=== PATIENT | female | born 1995 | race Caucasian/White ===

== ENCOUNTER → 2017-10-28 | Outpatient (CLI) | payer BC, MEDICAID ==
[~2017-10-28] MED LIST: BIRTH CONTROL; CEFU250T11 PO; HYDR-3454 PO; HYDR1TAB8 OP; NITR-65 PO; ONDN4T PO; [UNRECOGNIZED DRUG - CODE]
--- NOTE | 2017-10-28 18:17 | Diagnostic Imaging Report ---
INDICATION: Breast lump. COMPARISON: None. FINDINGS: Focused ultrasound examination of the left breast demonstrates normal echogenicity throughout. There is no mass, cyst, or inflammation. IMPRESSION: Negative left breast ultrasound. ACR BI-RADS Category 1: Negative. Dictated by: Dictated on workstation # [id number]
== END ==
LOC: RAD 12:48
PROVIDERS: ATTEND Nurse Practitioner Family
DX: N63.20 Unspecified lump in the left breast, unspecified quadrant (principal)
CPT/HCPCS: 76641

== ENCOUNTER → 2018-01-14 | Outpatient (CLI) | payer BC, MEDICAID ==
--- NOTE | 2018-01-14 15:34 | Diagnostic Imaging Report ---
INDICATION: Right pelvic pain. TECHNIQUE: Transabdominal and transvaginal pelvic sonography was performed. FINDINGS: The uterus measures 7.5 x 3.3 x 2.9 cm. Endometrium is 3 mm in thickness. No uterine mass is detected. The right ovary measures 3.5 x 3.1 x 2.6 cm, and the left ovary measures 2.8 x 2.6 x 3.6 cm. There is a 13 mm follicle involving the right ovary. No free fluid is identified. There is blood flow to both ovaries. IMPRESSION: Unremarkable transabdominal and transvaginal pelvic ultrasound. Dictated by: Dictated on workstation # [id number]
== END ==
LOC: RAD 14:14
PROVIDERS: ATTEND Nurse Practitioner Family
DX: N93.9 Abnormal uterine and vaginal bleeding, unspecified (principal); R10.2 Pelvic and perineal pain
CPT/HCPCS: 76830; 76856

== ENCOUNTER → 2018-03-19 | Outpatient (CLI) | payer BC, MEDICAID ==
[~2018-03-19] MED LIST changes: +GADOBUTROL 7.5 MMOL/7.5 ML (GADAVIST) VIAL IV ONE
--- NOTE | 2018-03-19 11:45 | Diagnostic Imaging Report ---
PROCEDURE: MR imaging cervical spine with and without contrast. TECHNIQUE: Multiplanar and multisequence MRI of the cervical spine was performed with and without contrast. INDICATION: Bilateral hand pain. FINDINGS: There are no prior studies available for comparison. The T2 sagittal images show the vertebral body heights and alignment to be within normal limits. The intervertebral disc spaces are well maintained. The thecal sac is generous. There is no evidence for spinal stenosis or nerve root encroachment at any level. There is no abnormal signal arising from the osseous structures or the cord to suggest an acute abnormality. There is no abnormal enhancement on the post contrast series to indicate a cord lesion or demyelinating disease. There is no paraspinal mass visualized. The expected carotid and vertebral flow voids are evident bilaterally. The cerebellar tonsils are normal in position. IMPRESSION: 1. There is no evidence for spinal stenosis or nerve root encroachment at any level. 2. There is no sign of an acute bony abnormality. 3. There is no abnormal signal arising from the cord to suggest an acute abnormality or demyelinating disease. Dictated by: Dictated on workstation # [id number]
--- NOTE | 2018-03-19 12:09 | Diagnostic Imaging Report ---
PROCEDURE: MR imaging of the brain with and without contrast. INDICATION: Constant right-sided headache. Bilateral hand pain with loss of sensation to the hands and feet for one and half years. TECHNIQUE: Multiplanar, multisequence MR imaging of the brain was performed with and without contrast. CORRELATION STUDY: None. FINDINGS: There is some motion artifact. The ventricles and sulci appear age appropriate. Normal masters-white signal differentiation. No significant white matter signal abnormalities. No edema. No restricted areas of diffusion. No significant gradient echo signal abnormalities. Craniocervical junction as well as midline structures appear unremarkable. Normal expected intracranial flow voids. Post contrast imaging demonstrates no abnormal areas of intracranial enhancement. IMPRESSION: Unremarkable pre and post contrast MRI examination of the brain. Dictated by: Dictated on workstation # [id number]
== END ==
LOC: RAD 07:46
PROVIDERS: ATTEND Psychiatry & Neurology Neurology
DX: M79.641 Pain in right hand (principal); M79.642 Pain in left hand; R20.2 Paresthesia of skin; R51 Headache
CPT/HCPCS: 70553; 72156

== ENCOUNTER 2018-08-24 07:03 | Emergency (ER) | payer BC, MEDICAID ==
[~2018-08-24] VITALS: Ht 160 cm; Wt 48.5 kg
[~2018-08-24 07:03] MED LIST changes: -GADOBUTROL 7.5 MMOL/7.5 ML (GADAVIST) VIAL IV ONE
--- OUTSIDE RECORDS SUMMARY | 2018-08-24 07:28 | XMS REPORT ---
Author Author MAMIE COPELAND Organization [facility] Address [address] [place] [address] Care Team Providers Care Welt Sewer Name Role Phone MAMIE COPELAND Unavailable PROBLEMS Type Condition ICD9-CM Code HWB23-KX Code Onset Dates Condition Status SNOMED Code Problem Vaginal bleeding N93.9 Active 744578993 Problem Atypical squamous cells of undetermined significance on cytologic smear of vagina (ASC-US) R87.620 Active 254435731 Problem Vaginal high risk human papillomavirus (HPV) DNA test positive R87.811 Active 090665097 Problem Paresthesia of both hands R20.2 Active 293251913 ALLERGIES Substance Reaction Event Type Date Status Aspirin rash Drug Allergy January, Active ENCOUNTERS Encounter Location Date Diagnosis [facility] [address] [place] [address] [id number] January, Vaginal bleeding N93.9 and Pruritic rash L28.[address] [place] [address] [id number] January, Rash R21 ; Acute urticaria L50.8 and Allergic reaction, urticaria L50.[address] [place] [address] [id number] January, Vaginal bleeding N93.9 ; Epigastric abdominal pain R10.13 ; Heartburn R12 and Pelvic pain R10.2 [place] [id number] [place] [address] [id number] Dec, Pain of left hand M79.642 ; Pain in right hand M79.641 and Bilateral hand numbness R20.[address] [place] [address] [id number] Dec, Vaginal bleeding N93.9 and Pelvic pain R10.2 [place] [id number] [place] [address] [id number] 15 Nov, 2017 Status post colposcopy Z98.890 ; Vaginal high risk human papillomavirus ( HPV) DNA test positive R87.811 and Atypical squamous cells of undetermined significance on cytologic smear of vagina (ASC-US) R87.620 [address] [place] [address] [id number] 07 Nov, 2017 Vaginal cat B37.[address] [id number] 07 Oct, 2017 Well woman exam with routine gynecological exam Z01.419 ; Lump of left breast N63.20 ; High risk sexual behavior Z72.51 ; Vaginal discharge N89.8 and Pigmented skin lesion L81.9 [place] [address] [place] [address] [id number] 30 Sep, 2017 Lump of left breast N63.20 [place] [id number] [place] [address] [id number] 04 Sep, 2017 Fever, unspecified R50.9 and Influenza J11.[address] [id number] [id number] 13 Aug, 2017 Dental examination Z01.[address] [place] [address] [id number] 29 Jul, 2017 Epigastric abdominal pain R10.13 and Poor appetite R63.0 [facility] [id number] [phone] Jul, [place] [id number] [place] [address] [id number] Apr, BCP ( control pills) initiation Z30.011 and control counseling Z30.09 [place] [id number] [place] [address] [id number] Nov, Depo-Provera contraceptive status Z30.40 and Encounter for Depo-Provera contraception Z30.[address] [place] [address] [id number] 17 Nov, 2016 Fever, unspecified R50.9 and Influenza J11.[address] [place] [address] [id number] Sep, Routine gynecological examination Z01.419 ; Screening breast examination Z12.39 and High risk sexual behavior Z72.51 [place] [id number] [place] [address] [id number] Sep, High risk sexual behavior Z72.51 and Trichomonas contact Z20.[address] [id number] Aug, Encounter for Depo-Provera contraception Z30.[address] [id number] Jun, Sprain of left thumb, subsequent encounter S63.602D [place] [address] [place] [address] [id number] May, Encounter for Depo-Provera contraception Z30.42 [place] [address] [place] [address] [id number] Mar, Dysthymia F34.1 [place] [address] [place] [address] [id number] Mar, Visit for wound check Z51.89 and Dysthymia F34.1 [place] [address] [place] [address] [id number] Mar, Encounter for Depo-Provera contraception Z30.42 [place] [id number] [place] [address] [id number] Feb, Neck mass R22.1 and Paresthesia of both hands R20.2 [facility] [address] [place] [phone]- [phone] January, Dental examination Z01.20 [place] [id number] [place] [address] [id number] January, [address] [id number] January, Swollen lymph nodes R59.9 [place] [id number] [place] [address] [id number] Dec, Swollen lymph nodes R59.9 [facility] [id number] [place] [id number] Dec, Swollen lymph nodes R59.9 [facility] [id number] [place] [address] [id number] Dec, Encounter for Depo-Provera contraception Z30.42 [facility] [id number] [place] [address] [id number] Nov, Swollen lymph nodes R59.9 and Left wrist pain M25.532 [facility] [id number] [place] [address] [id number] Sep, Encounter for initial prescription of injectable contraceptive Z30.013 and Ringworm B35.9 [facility] [id number] [place] [address] 20914- 3234 Dec, [facility] [id number] [place] [address] 58620- 4190 Dec, [facility] [id number] [place] [address] [phone]- [phone] Feb, [facility] [id number] [place] [address] [phone]- [phone] Sep, [facility] [id number] [place] [address] 49945- [phone] Sep, [facility] [id number] [place] [address] 48087- [phone] Jun, [facility] [id number] [place] [address] [phone] Jun, [facility] [id number] [place] [address] [phone]- [phone] Apr, [facility] [id number] [place] [address] [phone]- 1293 Aug, [facility] [id number] [place] [address] 67295- [phone] Aug, [facility] [address] [place] [address] Apr, IMMUNIZATIONS No Known Immunizations SOCIAL HISTORY Never Assessed REASON FOR VISIT here to follow up on ultrasound, still having pain. ezn Howard PLAN OF CARE Activity Details Follow Up [address] Sprague for pelvic pain and vaginal bleeding Reason: VITAL SIGNS Height 64 in 2018-02-01 Weight 114 lbs 2018-02-01 Temperature 98.2 degrees Fahrenheit 2018-02-01 Heart Rate 78 bpm 2018-02-01 Respiratory Rate 16 2018-02-01 BMI 19.57 kg/m2 2018-02-01 Blood pressure systolic 100 mmHg 2018-02-01 Blood pressure diastolic 64 mmHg 2018-02-01 MEDICATIONS Medication Instructions Dosage Frequency Start Date End Date Duration Status Omeprazole 20 mg Orally Once a day 1 capsule 24h January, 30 day(s ) Active RESULTS Name Result Date Reference Range H PYLORI (IN HOUSE) 2018-02-01 H. PYLORI neg Control + Lot # [id number] Exp date 07/07 TEST, URINE (IN HOUSE) 2018-02-01 RESULTS negative Lot # [id number] Control + Exp date 05/08 UA LONG DIP (IN HOUSE) 2018-02-01 Lot # [id number] Exp date 01/06 Clarity clear Color yellow Odor no GLU neg NAA neg KET neg SG 1.025 BLO trace pH 7.0 Protein neg URO 0.2 NIT neg YASH neg Lot # Exp date PROCEDURES Procedure Date Ordered Result Body Site IMMUNOASSAY,INFECTIOUS AGENT February 01, 2018 URINALYSIS, AUTO, W/O SCOPE February 01, 2018 URINE TEST February 01, 2018 INSTRUCTIONS MEDICATIONS ADMINISTERED No Known Medications MEDICAL (GENERAL) HISTORY Type Description Date Medical History asthma Medical History anemia Medical History arthritis Medical History back trouble Medical History 01/14/18 Pelvic US, no mass is detected. There is blood flow to both ovaries. No free fluid. Medical History Neck mass Medical History Dysthymia Surgical History appendectomy 2009 Surgical History kidney stones removed [address] Brown removed lyph node on right side of neck 2016 Hospitalization History surgeries, childbirth
--- OUTSIDE RECORDS SUMMARY | 2018-08-24 07:29 | XMS REPORT ---
Author Author MAMIE COPELAND Organization [facility] Address [address] [place] [address] Care Team Providers Care Certified Professional Coder Name Role Phone MAMIE COPELAND Unavailable PROBLEMS Type Condition ICD9-CM Code SRM07-HO Code Onset Dates Condition Status SNOMED Code Problem Vaginal bleeding N93.9 Active 679194308 Problem Atypical squamous cells of undetermined significance on cytologic smear of vagina (ASC-US) R87.620 Active 602844114 Problem Vaginal high risk human papillomavirus (HPV) DNA test positive R87.811 Active 319886730 Problem Paresthesia of both hands R20.2 Active 287327308 ALLERGIES Substance Reaction Event Type Date Status Aspirin rash Drug Allergy Dec, Active ENCOUNTERS Encounter Location Date Diagnosis [address] [place] [address] [id number] January, Vaginal bleeding N93.9 and Pruritic rash L28.2 [place] [id number] [place] [address] [id number] January, Rash R21 ; Acute urticaria L50.8 and Allergic reaction, urticaria L50.0 [place] [id number] [place] [address] [id number] January, Vaginal bleeding N93.9 ; Epigastric abdominal pain R10.13 ; Heartburn R12 and Pelvic pain R10.2 [address] [place] [address] [id number] Dec, Pain of left hand M79.642 ; Pain in right hand M79.641 and Bilateral hand numbness R20.0 [address] [place] [address] [id number] Dec, Vaginal bleeding N93.9 and Pelvic pain R10.2 [place] [id number] [place] [address] [id number] 15 Nov, 2017 Status post colposcopy Z98.890 ; Vaginal high risk human papillomavirus ( HPV) DNA test positive R87.811 and Atypical squamous cells of undetermined significance on cytologic smear of vagina (ASC-US) R87.620 [address] [place] [address] [id number] 07 Nov, 2017 Vaginal cat B37.[address] [id number] 07 Oct, 2017 Well woman exam with routine gynecological exam Z01.419 ; Lump of left breast N63.20 ; High risk sexual behavior Z72.51 ; Vaginal discharge N89.8 and Pigmented skin lesion L81.9 [place] [id number] [place] [address] [id number] 30 Sep, 2017 Lump of left breast N63.20 [place] [id number] [place] [address] [id number] 04 Sep, 2017 Fever, unspecified R50.9 and Influenza J11.[address] [id number] [id number] 13 Aug, 2017 Dental examination Z01.[address] [place] [address] [id number] 29 Jul, 2017 Epigastric abdominal pain R10.13 and Poor appetite R63.0 [facility] [id number] [phone] Jul, [place] [id number] [place] [address] [id number] Apr, BCP ( control pills) initiation Z30.011 and control counseling Z30.[address] [id number] Nov, Depo-Provera contraceptive status Z30.40 and Encounter for Depo-Provera contraception Z30.42 [address] [place] [address] [id number] 17 Nov, 2016 Fever, unspecified R50.9 and Influenza J11.1 [facility] [id number] [place] [address] [id number] Sep, Routine gynecological examination Z01.419 ; Screening breast examination Z12.39 and High risk sexual behavior Z72.51 [place] [address] [id number] [place] [address] [id number] 18 Sep, 2016 High risk sexual behavior Z72.51 and Trichomonas contact Z20.[address] [id number] Aug, Encounter for Depo-Provera contraception Z30.[address] [id number] Jun, Sprain of left thumb, subsequent encounter S63.602D [address] [id number] May, Encounter for Depo-Provera contraception Z30.[address] [id number] Mar, Dysthymia F34.[address] [id number] Mar, Visit for wound check Z51.89 and Dysthymia F34.1 [place] [id number] [place] [address] [id number] Mar, Encounter for Depo-Provera contraception Z30.42 [place] [id number] [place] [address] [id number] Feb, Neck mass R22.1 and Paresthesia of both hands R20.2 [facility] [id number] [place] [address] [phone]- [phone] January, Dental examination Z01.20 [place] [id number] [place] [address] [id number] January, [address] [id number] January, Swollen lymph nodes R59.9 [place] [id number] [place] [address] [id number] Dec, Swollen lymph nodes R59.9 [facility] [id number] [place] [id number] Dec, Swollen lymph nodes R59.9 [facility] [address] [place] [address] [id number] Dec, Encounter for Depo-Provera contraception Z30.42 [address] [place] [address] [id number] Nov, Swollen lymph nodes R59.9 and Left wrist pain M25.532 [facility] [id number] [place] [address] [id number] Sep, Encounter for initial prescription of injectable contraceptive Z30.013 and Ringworm B35.9 [facility] [id number] [place] [address] 36375- [phone] Dec, [facility] [address] [address]- [phone] Dec, [facility] [id number] [place] [address] 58454- 9664 Feb, [facility] [id number] [place] [address] [phone]- [phone] Sep, [facility] [id number] [place] [address] 95841- [phone] Sep, [facility] [id number] [place] [address] 69047- [phone] Jun, [facility] [id number] [place] [address] 99515- 1174 Jun, [facility] [id number] [place] [address] [phone]- [phone] Apr, [facility] [address] [phone]- [phone] Aug, [facility] [id number] [place] [address] [phone]- [phone] Aug, [facility] [address] [place] [address] 13 Apr, 2009 IMMUNIZATIONS No Known Immunizations SOCIAL HISTORY Never Assessed REASON FOR VISIT Had [place] bx done 12/02 continues to have vaginal bleeding. Paco QUIGLEY PLAN OF CARE Activity Details Follow Up 1 Week Reason:vaginal bleeding and hand numbness VITAL SIGNS Height 64 in 2017-12-29 Weight 114.6 lbs 2017-12-29 Temperature 97.8 degrees Fahrenheit 2017-12-29 Heart Rate 90 bpm 2017-12-29 Respiratory Rate 16 2017-12-29 BMI 19.67 kg/m2 2017-12-29 Blood pressure systolic 118 mmHg 2017-12-29 Blood pressure diastolic 74 mmHg 2017-12-29 MEDICATIONS No Known Medications RESULTS No Results PROCEDURES Procedure Date Ordered Result Body Site ROUTINE VENIPUNCTURE 2017-12-29 N/A URINALYSIS, AUTO, W/O SCOPE December 29, 2017 N.GONORRHOEAE, DNA, AMP PROB December 29, 2017 CHYLMD TRACH, DNA, AMP PROBE December 29, 2017 CULTURE, BACTERIA, OTHER December 29, 2017 URINE TEST December 29, 2017 URINE CULTURE/COLONY COUNT December 29, 2017 COMPREHEN METABOLIC PANEL December 29, 2017 MANUAL CELL COUNT, EACH December 29, 2017 INSTRUCTIONS MEDICATIONS ADMINISTERED No Known Medications MEDICAL [...] lyph node on right side of neck 2015 Hospitalization History surgeries, childbirth
--- OUTSIDE RECORDS SUMMARY | 2018-08-24 07:29 | XMS REPORT ---
Author Author MAMIE COPELAND Organization [facility] Address [address] [place] [address] Care Team Providers Care Plain Clothes Police Officer Name Role Phone MAMIE COPELAND Unavailable PROBLEMS Type Condition ICD9-CM Code [id number] Code Onset Dates Condition Status SNOMED Code Problem Vaginal bleeding N93.9 Active 475484988 Problem Atypical squamous cells of undetermined significance on cytologic smear of vagina (ASC-US) R87.620 Active 426422594 Problem Vaginal high risk human papillomavirus (HPV) DNA test positive R87.811 Active 490400291 Problem Paresthesia of both hands R20.2 Active 729362860 ALLERGIES Substance Reaction Event Type Date Status Aspirin rash Drug Allergy January, Active ENCOUNTERS Encounter Location Date Diagnosis [facility] [address] [place] [address] [id number] January, Vaginal bleeding N93.9 and Pruritic rash L28.2 [place] [id number] [place] [address] [id number] January, Rash R21 ; Acute urticaria L50.8 and Allergic reaction, urticaria L50.0 [address] [place] [address] [id number] January, Vaginal bleeding N93.9 ; Epigastric abdominal pain R10.13 ; Heartburn R12 and Pelvic pain R10.2 [place] [id number] [place] [address] [id number] Dec, Pain of left hand M79.642 ; Pain in right hand M79.641 and Bilateral hand numbness R20.0 [address] [place] [address] [id number] Dec, Vaginal bleeding N93.9 and Pelvic pain R10.2 [place] [id number] [place] [address] [id number] 15 Nov, 2017 Status post colposcopy Z98.890 ; Vaginal high risk human papillomavirus ( HPV) DNA test positive R87.811 and Atypical squamous cells of undetermined significance on cytologic smear of vagina (ASC-US) R87.620 [address] [place] [address] [id number] 07 Nov, 2017 Vaginal cat B37.[address] [id number] 07 Oct, 2017 Well woman exam with routine gynecological exam Z01.419 ; Lump of left breast N63.20 ; High risk sexual behavior Z72.51 ; Vaginal discharge N89.8 and Pigmented skin lesion L81.9 [place] [id number] [place] [address] [id number] 30 Sep, 2017 Lump of left breast N63.20 [place] [id number] [place] [address] [id number] 04 Sep, 2017 Fever, unspecified R50.9 and Influenza J11.[address] [id number] [id number] 13 Aug, 2017 Dental examination Z01.20 [address] [place] [address] [id number] 29 Jul, 2017 Epigastric abdominal pain R10.13 and Poor appetite R63.0 [facility] [address] [id number] [phone] Jul, [place] [id number] [place] [address] [id number] Apr, BCP ( control pills) initiation Z30.011 and control counseling Z30.09 [place] [id number] [place] [address] [id number] Nov, Depo-Provera contraceptive status Z30.40 and Encounter for Depo-Provera contraception Z30.42 [address] [place] [address] [id number] 17 Nov, 2016 Fever, unspecified R50.9 and Influenza J11.1 [address] [place] [address] [id number] Sep, Routine gynecological examination Z01.419 ; Screening breast examination Z12.39 and High risk sexual behavior Z72.51 [place] [id number] [place] [address] [id number] Sep, High risk sexual behavior Z72.51 and Trichomonas contact Z20.[address] [id number] Aug, Encounter for Depo-Provera contraception Z30.[address] [id number] Jun, Sprain of left thumb, subsequent encounter S63.602D [place] [id number] [place] [address] [id number] May, Encounter for Depo-Provera contraception Z30.42 [place] [id number] [place] [address] [id number] Mar, Dysthymia F34.1 [place] [id number] [place] [address] [id number] Mar, Visit for wound check Z51.89 and Dysthymia F34.1 [place] [id number] [place] [address] [id number] Mar, Encounter for Depo-Provera contraception Z30.42 [place] [id number] [place] [address] [id number] Feb, Neck mass R22.1 and Paresthesia of both hands R20.2 [facility] [address] [place] [address] [phone]- [phone] January, Dental examination Z01.20 [place] [id number] [place] [address] [id number] January, [address] [id number] January, Swollen lymph nodes R59.9 [place] [id number] [place] [address] [id number] Dec, Swollen lymph nodes R59.9 [facility] [id number] [id number] Dec, Swollen lymph nodes R59.9 [facility] [id number] [place] [address] [id number] Dec, Encounter for Depo-Provera contraception Z30.42 [facility] [id number] [place] [address] [id number] Nov, Swollen lymph nodes R59.9 and Left wrist pain M25.532 [facility] [id number] [place] [address] [id number] Sep, Encounter for initial prescription of injectable contraceptive Z30.013 and Ringworm B35.9 [facility] [id number] [place] [address] 62718- [phone] Dec, [facility] [id number] [place] [address] 58152- 4093 Dec, [facility] [id number] [place] [address] 96202- 8837 Feb, [facility] [id number] [place] [address] [phone]- [phone] Sep, [facility] [id number] [place] [address] [phone]- [phone] Sep, [facility] [id number] [place] [address] [phone]- [phone] Jun, [facility] [id number] [place] [address] [phone]- [phone] Jun, [facility] [id number] [place] [address] [phone]- [phone] Apr, [facility] [id number] [place] [address] [phone]- 6539 Aug, [facility] [id number] [place] [address] 13029- 3351 Aug, [facility] [address] [place] [address] Apr, IMMUNIZATIONS Vaccine Route Administration Date Status SOLUMEDROL (UP TO 125 MG) IM Intramuscular February 07, 2018 Administered SOCIAL HISTORY Never Assessed REASON FOR VISIT Rash all over body started yesterday morning. Has tried benadryl, took a bleach bath Paco QUIGLEY PLAN OF CARE Activity Details Follow Up prn if not improving Reason: VITAL SIGNS Height 64 in 2018-02-07 Weight 116.1 lbs 2018-02-07 Temperature 97 degrees Fahrenheit 2018-02-07 Heart Rate 68 bpm 2018-02-07 Respiratory Rate 16 2018-02-07 BMI 19.93 kg/m2 2018-02-07 Blood pressure systolic 110 mmHg 2018-02-07 Blood pressure diastolic 64 mmHg 2018-02-07 MEDICATIONS Medication Instructions Dosage Frequency Start Date End Date Duration Status Benadryl 1-0.1 % Externally Three times a day 1 application to affected area as needed 8h January, Feb, 14 days Active Benadryl Allergy 25 MG Orally every 8 hrs 1 tablet as needed 8h Active PredniSONE 5 MG (21) Orally once per day per pack as directed per pack January, January, 6 days Active RESULTS No Results PROCEDURES Procedure Date Ordered Result Body Site SOLUMEDROL (UP TO 125 MG) February 07, 2018 THER/PROPH/DIAG INJ, SC/IM February 07, 2018 INSTRUCTIONS MEDICATIONS ADMINISTERED No Known Medications [...]
--- OUTSIDE RECORDS SUMMARY | 2018-08-24 07:29 | XMS REPORT ---
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 Name Role Phone MAMIE COPELAND Unavailable PROBLEMS Type Condition ICD9-CM Code WLI37-UQ Code Onset Dates Condition Status SNOMED Code Problem Vaginal bleeding N93.9 Active 553876342 Problem Atypical squamous cells of undetermined significance on cytologic smear of vagina (ASC-US) R87.620 Active 270003934 Problem Vaginal high risk human papillomavirus (HPV) DNA test positive R87.811 Active 390918956 Problem Paresthesia of both hands R20.2 Active 995193238 ALLERGIES No Information ENCOUNTERS Encounter Location Date Diagnosis [facility] [id number] [place] [address] [id number] January, Vaginal bleeding N93.9 and Pruritic rash L28.[address] [id number] January, Rash R21 ; Acute urticaria L50.8 and Allergic reaction, urticaria L50.0 [place] [address] [place] [address] [id number] January, Vaginal bleeding N93.9 ; Epigastric abdominal pain R10.13 ; Heartburn R12 and Pelvic pain R10.2 [place] [address] [place] [address] [id number] Dec, Pain of left hand M79.642 ; Pain in right hand M79.641 and Bilateral hand numbness R20.0 [place] [address] [place] [address] [id number] Dec, Vaginal bleeding N93.9 and Pelvic pain R10.2 [place] [address] [place] [address] [id number] Nov, Status post colposcopy Z98.890 ; Vaginal high risk human papillomavirus ( HPV) DNA test positive R87.811 and Atypical squamous cells of undetermined significance on cytologic smear of vagina (ASC-US) R87.620 [address] [place] [address] [id number] 07 Nov, 2017 Vaginal cat B37.[address] [id number] 07 Oct, 2017 Well woman exam with routine gynecological exam Z01.419 ; Lump of left breast N63.20 ; High risk sexual behavior Z72.51 ; Vaginal discharge N89.8 and Pigmented skin lesion L81.[address] [id number] 30 Sep, 2017 Lump of left breast N63.20 [address] [address] [place] [address] [id number] 04 Sep, 2017 Fever, unspecified R50.9 and Influenza J11.[address] [id number] [id number] 13 Aug, 2017 Dental examination Z01.20 [address] [address] [place] [address] [id number] 29 Jul, 2017 Epigastric abdominal pain R10.13 and Poor appetite R63.0 [facility] [address] [phone] Jul, [place] [address] [place] [address] [id number] Apr, BCP ( control pills) initiation Z30.011 and control counseling Z30.09 [place] [address] [place] [address] [id number] Nov, Depo-Provera contraceptive status Z30.40 and Encounter for Depo-Provera contraception Z30.42 [place] [address] [place] [address] [id number] 17 Nov, 2016 Fever, unspecified R50.9 and Influenza J11.1 [address] [id number] Sep, Routine gynecological examination Z01.419 ; Screening breast examination Z12.39 and High risk sexual behavior Z72.51 [facility] [id number] [place] [address] [id number] Sep, High risk sexual behavior Z72.51 and Trichomonas contact Z20.2 [facility] [id number] [place] [address] [id number] Aug, Encounter for Depo-Provera contraception Z30.42 [facility] [id number] [place] [address] [id number] Jun, Sprain of left thumb, subsequent encounter S63.602[address] [place] [id number] [place] [address] [id number] May, Encounter for Depo-Provera contraception Z30.42 [place] [id number] [place] [address] [id number] Mar, Visit for wound check Z51.89 and Dysthymia F34.1 [facility] [id number] [place] [address] [id number] Mar, Dysthymia F34.1 [place] [address] [place] [address] [id number] Mar, Encounter for Depo-Provera contraception Z30.42 [facility] [id number] [place] [address] [id number] Feb, Neck mass R22.1 and Paresthesia of both hands R20.2 [facility] [id number] [place] [address] [phone] January, Dental examination Z01.20 [address] [place] [address] [id number] January, [place] [address] [place] [address] [id number] January, Swollen lymph nodes R59.9 [address] [place] [address] [id number] Dec, Swollen lymph nodes R59.9 [place] [id number] Dec, Swollen lymph nodes R59.9 [address] [id number] Dec, Encounter for Depo-Provera contraception Z30.42 [address] [id number] Nov, Swollen lymph nodes R59.9 and Left wrist pain M25.532 [address] [id number] Sep, Encounter for initial prescription of injectable contraceptive Z30.013 and Ringworm B35.9 [facility] [id number] [place] [address] [phone]- [phone] Dec, [facility] [id number] [place] [address] [phone] Dec, [facility] [id number] [place] [address] [phone] Feb, [facility] [id number] [place] [address] [phone]- [phone] Sep, [facility] [id number] [place] [address] [phone] Sep, [facility] [id number] [place] [address] [phone]- [phone] Jun, [facility] [id number] [place] [address] 37784- [phone] Jun, [facility] [id number] [place] [address] [phone] Apr, [facility] [id number] [place] [address] [phone]- [phone] Aug, [facility] [id number] [place] [address] [phone] Aug, [facility] [id number] [place] [address] [phone] Apr, IMMUNIZATIONS No Known Immunizations SOCIAL HISTORY Never Assessed REASON FOR VISIT pap results PLAN OF CARE VITAL SIGNS MEDICATIONS Medication Instructions Dosage Frequency Start Date End Date Duration Status Fluconazole 150 MG Orally once today and repeat in 2 days 1 tablet NovNov, 03 days Active RESULTS No Results PROCEDURES No Known procedures INSTRUCTIONS MEDICATIONS ADMINISTERED No Known Medications MEDICAL (GENERAL) HISTORY Type Description Date Medical History asthma Medical History anemia Medical History arthritis Medical History back trouble Medical History 01/14/18 Pelvic US, no mass is detected. There is blood flow to both ovaries. No free fluid. Medical History Neck mass Medical History Dysthymia Surgical History appendectomy 2008 Surgical History kidney stones removed [address] Brown removed lyph node on right side of neck 2016 Hospitalization History surgeries, childbirth
--- OUTSIDE RECORDS SUMMARY | 2018-08-24 07:29 | XMS REPORT ---
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 Name Role Phone ANNIE GHOSH Unavailable PROBLEMS Type Condition ICD9-CM Code EKO27-NE Code Onset Dates Condition Status SNOMED Code Problem Vaginal bleeding N93.9 Active 206925015 Problem Atypical squamous cells of undetermined significance on cytologic smear of vagina (ASC-US) R87.620 Active 605263195 Problem Vaginal high risk human papillomavirus (HPV) DNA test positive R87.811 Active 722446049 Problem Paresthesia of both hands R20.2 Active 524735894 ALLERGIES Substance Reaction Event Type Date Status Aspirin rash Drug Allergy January, Active ENCOUNTERS Encounter Location Date Diagnosis [address] [place] [address] [id number] January, Vaginal bleeding N93.9 and Pruritic rash L28.[address] [place] [address] [id number] January, Rash R21 ; Acute urticaria L50.8 and Allergic reaction, urticaria L50.0 [facility] [id number] [place] [address] [id number] January, Vaginal bleeding N93.9 ; Epigastric abdominal pain R10.13 ; Heartburn R12 and Pelvic pain R10.2 [address] [place] [address] [id number] Dec, Pain of left hand M79.642 ; Pain in right hand M79.641 and Bilateral hand numbness R20.0 [facility] [id number] [place] [address] [id number] Dec, Vaginal bleeding N93.9 and Pelvic pain R10.2 [address] [id number] [place] [address] [id number] 15 Nov, 2017 Status post colposcopy Z98.890 ; Vaginal high risk human papillomavirus ( HPV) DNA test positive R87.811 and Atypical squamous cells of undetermined significance on cytologic smear of vagina (ASC-US) R87.620 [address] [place] [address] [id number] 07 Nov, 2017 Vaginal cat B37.[address] [id number] 07 Oct, 2017 Well woman exam with routine gynecological exam Z01.419 ; Lump of left breast N63.20 ; High risk sexual behavior Z72.51 ; Vaginal discharge N89.8 and Pigmented skin lesion L81.9 [address] [place] [place] [address] [id number] 30 Sep, 2017 Lump of left breast N63.20 [address] [place] [address] [id number] 04 Sep, 2017 Fever, unspecified R50.9 and Influenza J11.[address] [id number] [id number] 13 Aug, 2017 Dental examination Z01.20 [address] [place] [address] [id number] 29 Jul, 2017 Epigastric abdominal pain R10.13 and Poor appetite R63.0 [facility] [address] [phone] Jul, [id number] [place] [address] [id number] Apr, BCP ( control pills) initiation Z30.011 and control counseling Z30.[address] [id number] Nov, Depo-Provera contraceptive status Z30.40 and Encounter for Depo-Provera contraception Z30.42 [address] [place] [address] [id number] 17 Nov, 2016 Fever, unspecified R50.9 and Influenza J11.1 [facility] [id number] [place] [address] [id number] Sep, Routine gynecological examination Z01.419 ; Screening breast examination Z12.39 and High risk sexual behavior Z72.51 [facility] [id number] [place] [address] [id number] 18 Sep, 2016 High risk sexual behavior Z72.51 and Trichomonas contact Z20.[address] [id number] Aug, Encounter for Depo-Provera contraception Z30.[address] [id number] Jun, Sprain of left thumb, subsequent encounter S63.602[address] [place] [id number] [place] [address] [id number] May, Encounter for Depo-Provera contraception Z30.[address] [id number] Mar, Dysthymia F34.[address] [id number] Mar, Visit for wound check Z51.89 and Dysthymia F34.1 [id number] [place] [address] [id number] Mar, Encounter for Depo-Provera contraception Z30.42 [id number] [place] [address] [id number] Feb, Neck mass R22.1 and Paresthesia of both hands R20.2 [facility] [id number] [place] [address] 50488- [phone] January, Dental examination Z01.20 [address] [place] [address] [id number] January, [address] [id number] January, Swollen lymph nodes R59.9 [address] [place] [address] [id number] Dec, Swollen lymph nodes R59.9 [facility] [address] [id number] [id number] Dec, Swollen lymph nodes R59.9 [address] [place] [address] [id number] Dec, Encounter for Depo-Provera contraception Z30.42 [address] [place] [address] [id number] Nov, Swollen lymph nodes R59.9 and Left wrist pain M25.532 [id number] [place] [address] [id number] Sep, Encounter for initial prescription of injectable contraceptive Z30.013 and Ringworm B35.9 [facility] [id number] [place] [address] 15884- [phone] Dec, [facility] [address] [phone] Dec, [facility] [id number] [place] [address] 43134- [phone] Feb, [facility] [id number] [place] [address] 23195- 5855 Sep, [facility] [id number] [place] [address] 92742- 7064 Sep, [facility] [id number] [place] [address] 91131- 0489 Jun, [facility] [id number] [place] [address] 25528- 0404 Jun, [facility] [id number] [place] [address] 69323- 3024 Apr, [facility] [id number] [place] [address] [phone] Aug, [facility] [id number] [place] [address] [phone]- 6924 Aug, [facility] [address] [place] [address]- 8466 Apr, IMMUNIZATIONS No Known Immunizations SOCIAL HISTORY Never Assessed REASON FOR VISIT Pt c/o irregular vaginal bleeding x's 4 months Paco QUIGLEY PLAN OF CARE Activity Details Follow Up prn Reason: VITAL SIGNS Height 64 in 2018-02-10 Weight 114.8 lbs 2018-02-10 Temperature 97.7 degrees Fahrenheit 2018-02-10 Heart Rate 78 bpm 2018-02-10 Respiratory Rate 16 2018-02-10 BMI 19.70 kg/m2 2018-02-10 Blood pressure systolic 110 mmHg 2018-02-10 Blood pressure diastolic 68 mmHg 2018-02-10 MEDICATIONS Medication Instructions Dosage Frequency Start Date End Date Duration Status MedroxyPROGESTERone Acetate 10 mg Orally Once a day 1 tablet with food 24h January, Feb, 10 days Active Lidocaine & Adhesive Sheet 5 % Externally 12 hours daily to affected area as directed January, Feb, 10 days Active Benadryl Allergy 25 MG Orally every 8 hrs 1 tablet as needed 8h Active PredniSONE 5 MG (21) Orally once per day per pack as directed per pack January, January, 6 days Active RESULTS No Results PROCEDURES Procedure Date Ordered Result Body Site ASSAY THYROID STIM HORMONE February 10, 2018 COMPLETE CBC W/AUTO DIFF WBC February 10, 2018 VENIPUNCT, ROUTINE* February 10, 2018 INSTRUCTIONS MEDICATIONS ADMINISTERED No Known Medications [...]
--- OUTSIDE RECORDS SUMMARY | 2018-08-24 07:29 | XMS REPORT ---
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 Name Role Phone MAMIE COPELAND Unavailable PROBLEMS Type Condition ICD9-CM Code NIF54-LX Code Onset Dates Condition Status SNOMED Code Problem Vaginal bleeding N93.9 Active 981048392 Problem Atypical squamous cells of undetermined significance on cytologic smear of vagina (ASC-US) R87.620 Active 775057648 Problem Vaginal high risk human papillomavirus (HPV) DNA test positive R87.811 Active 980082959 Problem Paresthesia of both hands R20.2 Active 067267836 ALLERGIES Substance Reaction Event Type Date Status Aspirin rash Drug Allergy Dec, Active ENCOUNTERS Encounter Location Date Diagnosis [facility] [address] [place] [address] [id number] January, Vaginal bleeding N93.9 and Pruritic rash L28.[address] [place] [address] [id number] January, Rash R21 ; Acute urticaria L50.8 and Allergic reaction, urticaria L50.[address] [place] [address] [id number] January, Vaginal bleeding N93.9 ; Epigastric abdominal pain R10.13 ; Heartburn R12 and Pelvic pain R10.2 [place] [id number] [place] [address] [id number] Dec, Pain of left hand M79.642 ; Pain in right hand M79.641 and Bilateral hand numbness R20.[address] [place] [address] [id number] Dec, Vaginal bleeding N93.9 and Pelvic pain R10.2 [place] [id number] [place] [address] [id number] 15 Nov, 2017 Status post colposcopy Z98.890 ; Vaginal high risk human papillomavirus ( HPV) DNA test positive R87.811 and Atypical squamous cells of undetermined significance on cytologic smear of vagina (ASC-US) R87.620 [address] [place] [address] [id number] 07 Nov, 2017 Vaginal cat B37.[address] [id number] 07 Oct, 2017 Well woman exam with routine gynecological exam Z01.419 ; Lump of left breast N63.20 ; High risk sexual behavior Z72.51 ; Vaginal discharge N89.8 and Pigmented skin lesion L81.9 [place] [address] [place] [address] [id number] 30 Sep, 2017 Lump of left breast N63.20 [place] [address] [place] [address] [id number] 04 Sep, 2017 Fever, unspecified R50.9 and Influenza J11.[address] [id number] [id number] 13 Aug, 2017 Dental examination Z01.[address] [place] [address] [id number] 29 Jul, 2017 Epigastric abdominal pain R10.13 and Poor appetite R63.0 [facility] WALK IN [facility] [address] [id number] [phone] Jul, [place] [id number] [place] [address] [id number] Apr, BCP ( control pills) initiation Z30.011 and control counseling Z30.09 [place] [id number] [place] [address] [id number] Nov, Depo-Provera contraceptive status Z30.40 and Encounter for Depo-Provera contraception Z30.42 [address] [place] [address] [id number] 17 Nov, 2016 Fever, unspecified R50.9 and Influenza J11.[address] [place] [address] [id number] Sep, Routine gynecological examination Z01.419 ; Screening breast examination Z12.39 and High risk sexual behavior Z72.51 [place] [id number] [place] [address] [id number] Sep, High risk sexual behavior Z72.51 and Trichomonas contact Z20.[address] [id number] Aug, Encounter for Depo-Provera contraception Z30.[address] [id number] Jun, Sprain of left thumb, subsequent encounter S63.602D [place] [id number] [place] [address] [id number] May, Encounter for Depo-Provera contraception Z30.42 [place] [address] [place] [address] [id number] Mar, Dysthymia F34.1 [place] [address] [place] [address] [id number] Mar, Visit for wound check Z51.89 and Dysthymia F34.1 [place] [address] [place] [address] [id number] Mar, Encounter for Depo-Provera contraception Z30.42 [place] [id number] [place] [address] [id number] Feb, Neck mass R22.1 and Paresthesia of both hands R20.2 [facility] [address] [place] [address] 35109- 5899 January, Dental examination Z01.20 [place] [id number] [place] [id number] January, [address] [id number] January, Swollen lymph nodes R59.9 [place] [id number] [place] [address] [id number] Dec, Swollen lymph nodes R59.9 [facility] [id number] [id number] Dec, Swollen lymph nodes R59.9 [facility] [id number] [place] [address] [id number] Dec, Encounter for Depo-Provera contraception Z30.42 [facility] [id number] [place] [address] [id number] Nov, Swollen lymph nodes R59.9 and Left wrist pain M25.532 [facility] [id number] [place] [address] [id number] Sep, Encounter for initial prescription of injectable contraceptive Z30.013 and Ringworm B35.9 [facility] [id number] [place] [address] 50311- 6388 Dec, [facility] [id number] [place] [address] 17639- [phone] Dec, [facility] [id number] [place] [address] 02131- 1632 Feb, [facility] [id number] [place] [address] 99400- [phone] Sep, [facility] [id number] [place] [address] 74850- 8717 Sep, [facility] [id number] [place] [address] 87457- [phone] Jun, [facility] [id number] [place] [address] [phone]- [phone] Jun, [facility] [id number] [place] [address] [phone]- [phone] Apr, [facility] [id number] [place] [address] [phone]- 1404 Aug, [facility] [id number] [place] [address] 85566- [phone] Aug, [facility] [address] [phone] Apr, IMMUNIZATIONS No Known Immunizations SOCIAL HISTORY Never Assessed REASON FOR VISIT f/u on irregular bleeding, labs and [facility] PLAN OF CARE Activity Details Follow Up pending NCS and prn Reason: VITAL SIGNS Height 64 in 2018-01-14 Weight 112.6 lbs 2018-01-14 Temperature 97.8 degrees Fahrenheit 2018-01-14 Heart Rate 78 bpm 2018-01-14 Respiratory Rate 16 2018-01-14 BMI 19.33 kg/m2 2018-01-14 Blood pressure systolic 110 mmHg 2018-01-14 Blood pressure diastolic 68 mmHg 2018-01-14 MEDICATIONS No Known Medications RESULTS No Results PROCEDURES No Known procedures [...]
--- OUTSIDE RECORDS SUMMARY | 2018-08-24 07:29 | XMS REPORT ---
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 Name Role Phone ANNIE GHOSH Unavailable PROBLEMS Type Condition ICD9-CM Code LDH90-FU Code Onset Dates Condition Status SNOMED Code Problem Vaginal bleeding N93.9 Active 637815912 Problem Atypical squamous cells of undetermined significance on cytologic smear of vagina (ASC-US) R87.620 Active 849975526 Problem Vaginal high risk human papillomavirus (HPV) DNA test positive R87.811 Active 659439544 Problem Paresthesia of both hands R20.2 Active 527983067 ALLERGIES Substance Reaction Event Type Date Status Aspirin rash Drug Allergy Nov, Active ENCOUNTERS Encounter Location Date Diagnosis [facility] [address] [place] [address] [id number] January, Vaginal bleeding N93.9 and Pruritic rash L28.[address] [place] [address] [id number] January, Rash R21 ; Acute urticaria L50.8 and Allergic reaction, urticaria L50.0 [facility] [id number] [place] [address] [id number] January, Vaginal bleeding N93.9 ; Epigastric abdominal pain R10.13 ; Heartburn R12 and Pelvic pain R10.2 [address] [place] [address] [id number] Dec, Pain of left hand M79.642 ; Pain in right hand M79.641 and Bilateral hand numbness R20.0 [facility] [id number] [place] [address] [id number] Dec, Vaginal bleeding N93.9 and Pelvic pain R10.2 [place] [id number] [place] [address] [id number] 15 Nov, 2017 Status post colposcopy Z98.890 ; Vaginal high risk human papillomavirus ( HPV) DNA test positive R87.811 and Atypical squamous cells of undetermined significance on cytologic smear of vagina (ASC-US) R87.620 [address] [place] [address] [id number] 07 Nov, 2017 Vaginal cat B37.[address] [id number] 07 Oct, 2017 Well woman exam with routine gynecological exam Z01.419 ; Lump of left breast N63.20 ; High risk sexual behavior Z72.51 ; Vaginal discharge N89.8 and Pigmented skin lesion L81.9 [place] [address] [place] [address] [id number] 30 Sep, 2017 Lump of left breast N63.20 [place] [id number] [place] [address] [id number] 04 Sep, 2017 Fever, unspecified R50.9 and Influenza J11.[address] [id number] [id number] 13 Aug, 2017 Dental examination Z01.20 [place] [id number] [place] [address] [id number] 29 Jul, 2017 Epigastric abdominal pain R10.13 and Poor appetite R63.0 [facility] WALK IN [facility] [address] [phone] Jul, [place] [id number] [place] [address] [id number] Apr, BCP ( control pills) initiation Z30.011 and control counseling Z30.[address] [id number] Nov, Depo-Provera contraceptive status Z30.40 and Encounter for Depo-Provera contraception Z30.42 [address] [place] [address] [id number] 17 Nov, 2016 Fever, unspecified R50.9 and Influenza J11.1 [facility] [id number] [place] [address] [id number] Sep, Routine gynecological examination Z01.419 ; Screening breast examination Z12.39 and High risk sexual behavior Z72.51 [facility] [id number] [place] [address] [id number] 18 Sep, 2016 High risk sexual behavior Z72.51 and Trichomonas contact Z20.[address] [id number] Aug, Encounter for Depo-Provera contraception Z30.[address] [id number] Jun, Sprain of left thumb, subsequent encounter S63.602D [place] [id number] [place] [address] [id number] May, Encounter for Depo-Provera contraception Z30.[address] [id number] Mar, Dysthymia F34.[address] [id number] Mar, Visit for wound check Z51.89 and Dysthymia F34.1 [place] [address] [place] [address] [id number] Mar, Encounter for Depo-Provera contraception Z30.42 [place] [id number] [place] [address] [id number] Feb, Neck mass R22.1 and Paresthesia of both hands R20.2 [facility] [id number] [place] [address] 08950- 4654 January, Dental examination Z01.20 [place] [id number] [place] [address] [id number] January, [address] [id number] January, Swollen lymph nodes R59.9 [place] [id number] [place] [address] [id number] Dec, Swollen lymph nodes R59.9 [facility] [address] [place] [id number] [id number] Dec, Swollen lymph nodes R59.9 [address] [place] [address] [id number] Dec, Encounter for Depo-Provera contraception Z30.42 [address] [place] [address] [id number] Nov, Swollen lymph nodes R59.9 and Left wrist pain M25.532 [place] [address] [place] [address] [id number] Sep, Encounter for initial prescription of injectable contraceptive Z30.013 and Ringworm B35.9 [facility] [id number] [place] [address] 01718- 2033 Dec, [facility] [address] [address]- [address]89 Dec, [facility] [id number] [place] [address] 57063- 2592 Feb, [facility] [id number] [place] [address] 80357- 2040 Sep, [facility] [id number] [place] [address] 98421- 1738 Sep, [facility] [id number] [place] [address] 43141- 8699 Jun, [facility] [id number] [place] [address] 61180- 8870 Jun, [facility] [id number] [place] [address] 52453- 4005 Apr, [facility] [id number] [place] [address] [phone]- [phone] Aug, [facility] [id number] [place] [address] 169989- 8430 Aug, [facility] [address], [place] [address] Apr, IMMUNIZATIONS No Known Immunizations SOCIAL HISTORY Never Assessed REASON FOR VISIT Colposcopy. zen Howard PLAN OF CARE Activity Details Follow Up PRN; will contact with pathology returns with instructions Reason: VITAL SIGNS Height 64 in 2017-12-02 Weight 116 lbs 2017-12-02 Temperature 98.1 degrees Fahrenheit 2017-12-02 Heart Rate 70 bpm 2017-12-02 Respiratory Rate 16 2017-12-02 BMI 19.91 kg/m2 2017-12-02 Blood pressure systolic 98 mmHg 2017-12-02 Blood pressure diastolic 70 mmHg 2017-12-02 MEDICATIONS No Known Medications RESULTS No Results PROCEDURES Procedure Date Ordered Result Body Site EXAM/BIOPSY OF VAG W/SCOPE December 02, 2017 INSTRUCTIONS MEDICATIONS ADMINISTERED No Known Medications [...]
--- OUTSIDE RECORDS SUMMARY | 2018-08-24 07:30 | XMS REPORT ---
Author Author HARLEY DE DIOS [facility] Address [address] [place] [address] Care Team Providers Care Central Supply Technician Name Role Phone HARLEY DE DIOS Unavailable PROBLEMS Type Condition ICD9-CM Code GBY23-XW Code Onset Dates Condition Status SNOMED Code Problem Vaginal bleeding N93.9 Active 015545770 Problem Atypical squamous cells of undetermined significance on cytologic smear of vagina (ASC-US) R87.620 Active 627159857 Problem Vaginal high risk human papillomavirus (HPV) DNA test positive R87.811 Active 691497087 Problem Paresthesia of both hands R20.2 Active 577838594 ALLERGIES Substance Reaction Event Type Date Status Aspirin rash Drug Allergy Aug, Active ENCOUNTERS Encounter Location Date Diagnosis [facility] [id number] [place] [address] [id number] January, Vaginal bleeding N93.9 and Pruritic rash L28.2 [place] [id number] [place] [address] [id number] January, Rash R21 ; Acute urticaria L50.8 and Allergic reaction, urticaria L50.0 [facility] [id number] [place] [address] [id number] January, Vaginal bleeding N93.9 ; Epigastric abdominal pain R10.13 ; Heartburn R12 and Pelvic pain R10.2 [place] [id number] [place] [address] [id number] Dec, Pain of left hand M79.642 ; Pain in right hand M79.641 and Bilateral hand numbness R20.0 [facility] [id number] [place] [address] [id number] Dec, Vaginal bleeding N93.9 and Pelvic pain R10.2 [place] [id number] [place] [address] [id number] 15 Nov, 2017 Status post colposcopy Z98.890 ; Vaginal high risk human papillomavirus ( HPV) DNA test positive R87.811 and Atypical squamous cells of undetermined significance on cytologic smear of vagina (ASC-US) R87.620 [address] [place] [address] [id number] 07 Nov, 2017 Vaginal cat B37.[address] [id number] 07 Oct, 2017 Well woman exam with routine gynecological exam Z01.419 ; Lump of left breast N63.20 ; High risk sexual behavior Z72.51 ; Vaginal discharge N89.8 and Pigmented skin lesion L81.9 [place] [address] [place] [address] [id number] 30 Sep, 2017 Lump of left breast N63.20 [address] [place] [address] [id number] 04 Sep, 2017 Fever, unspecified R50.[address] [address] [address] [id number] [id number] 13 Aug, 2017 Dental examination Z01.20 [place] [address] [place] [address] [id number] 29 Jul, 2017 Epigastric abdominal pain R10.13 and Poor appetite R63.0 [facility] WALK IN [facility] [address] [phone] Jul, [place] [address] [place] [address] [id number] Apr, BCP ( control pills) initiation Z30.011 and control counseling Z30.09 [place] [address] [place] [address] [id number] Nov, Depo-Provera contraceptive status Z30.40 and Encounter for Depo-Provera contraception Z30.42 [address] [place] [address] [id number] 17 Nov, 2016 Fever, unspecified R50.9 and Influenza J11.1 [place] [id number] [place] [address] [id number] Sep, Routine gynecological examination Z01.419 ; Screening breast examination Z12.39 and High risk sexual behavior Z72.51 [facility] [id number] [place] [address] [id number] Sep, High risk sexual behavior Z72.51 and Trichomonas contact Z20.2 [place] [address] [place] [address] [id number] Aug, Encounter for Depo-Provera contraception Z30.42 [place] [id number] [place] [address] [id number] Jun, Sprain of left thumb, subsequent encounter S63.602D [place] [id number] [place] [address] [id number] May, Encounter for Depo-Provera contraception Z30.42 [place] [address] [place] [address] [id number] Mar, Dysthymia F34.1 [place] [address] [place] [address] [id number] Mar, Visit for wound check Z51.89 and Dysthymia F34.1 [place] [address] [place] [address] [id number] Mar, Encounter for Depo-Provera contraception Z30.42 [place] [id number] [place] [address] [id number] Feb, Neck mass R22.1 and Paresthesia of both hands R20.2 [facility] [id number] [place] [address] [phone]- 5501 January, Dental examination Z01.20 [address] [place] [address] [id number] January, [facility] [id number] [place] [address] [id number] January, Swollen lymph nodes R59.9 [place] [address] [place] [address] [id number] Dec, Swollen lymph nodes R59.9 [place] [id number] [id number] Dec, Swollen lymph nodes R59.9 [facility] [id number] [place] [address] [id number] Dec, Encounter for Depo-Provera contraception Z30.42 [facility] [address] [place] [address] [id number] Nov, Swollen lymph nodes R59.9 and Left wrist pain M25.532 [facility] [id number] [place] [address] [id number] Sep, Encounter for initial prescription of injectable contraceptive Z30.013 and Ringworm B35.9 [facility] [address] [address]- 5282 Dec, [facility] [address] 80108- 3457 Dec, [facility] [address] 89191- 6898 Feb, [facility] [address] 35554- 6852 Sep, [facility] [address] 68391- 3074 Sep, [facility] [id number] [place] [address] 88713- 7671 Jun, [facility] [id number] [place] [address] 46402- 2113 Jun, [facility] [id number] [place] [address] 51081- 9803 Apr, [facility] [address] 767049- 2546 Aug, [facility] [address] 370663- 1441 Aug, [facility] [address] 13606- 2546 Apr, IMMUNIZATIONS No Known Immunizations SOCIAL HISTORY Never Assessed REASON FOR VISIT dental pain PLAN OF CARE Activity Details Follow Up prn Reason:VENU/hygiene VITAL SIGNS Blood pressure systolic 101 mmHg 2017-09-01 Blood pressure diastolic 60 mmHg 2017-09-01 MEDICATIONS Medication Instructions Dosage Frequency Start Date End Date Duration Status Nexium 24HR 20 mg Orally Once a day 1 capsule 24h Jul, 10 days Not-Taking Depo-Provera 150 MG/ML 1 ml Not-Taking Clindamycin HCl 150 MG Orally every 8 hrs 2 capsules 8h 5 day(s) Active Motrin IB 800 Orally every 6 hrs 1 tablet as needed 6h 5 days Active Sprintec 28 0.25-35 MG-MCG Orally Once a day 1 tablet 24h Apr, 0 days Not-Taking RESULTS No Results PROCEDURES Procedure Date Ordered Result Body Site LTD ORAL EVALUATION - PROBLEM FOCUS Sep 01, 2017 INTRAORL-PERIAPICAL 1 FILM 02515 Sep 01, 2017 BITEWING - SINGLE FILM Sep 01, 2017 INSTRUCTIONS MEDICATIONS ADMINISTERED No Known Medications [...]
--- OUTSIDE RECORDS SUMMARY | 2018-08-24 07:30 | XMS REPORT ---
Author Author MAMIE COPELAND Organization [facility] Address [address] [place] [address] Care Team Providers Care Clinical Psychologist Name Role Phone MAMIE COPELAND Unavailable PROBLEMS Type Condition ICD9-CM Code [id number] Code Onset Dates Condition Status SNOMED Code Problem Dysthymia F34.1 Active 20199900 Problem Paresthesia of both hands R20.2 Active 694322375 Problem Problems related to high-risk sexual behavior V69.2 Active 505861459 Problem Neck mass R22.1 Active 378321886 Problem Contact with or exposure to venereal diseases V01.6 Active 282815351 ALLERGIES Substance Reaction Event Type Date Status Aspirin rash Drug Allergy Nov, Active SOCIAL HISTORY Never Assessed PLAN OF CARE Activity Details Follow Up 3 Months, prn Reason:for nurse visit depo shot VITAL SIGNS Height 64 in 2016-12-07 Weight 104.4 lbs 2016-12-07 Temperature 99.4 degrees Fahrenheit 2016-12-07 Heart Rate 110 bpm 2016-12-07 Respiratory Rate 16 2016-12-07 BMI 17.92 kg/m2 2016-12-07 Blood pressure systolic 108 mmHg 2016-12-07 Blood pressure diastolic 72 mmHg 2016-12-07 MEDICATIONS Medication Instructions Dosage Frequency Start Date End Date Duration Status Depo-Provera 150 MG/ML 1 ml Active RESULTS Name Result Date Reference Range TEST, URINE (IN HOUSE) 2016-12-07 RESULTS negative Lot # [id number] Control + Exp date 03/19/2018 PROCEDURES Procedure Date Ordered Result Body Site URINE TEST December 07, 2016 DEPO PROVERA (150 MG/ML) December 07, 2016 THER/PROPH/DIAG INJ, SC/IM December 07, 2016 IMMUNIZATIONS Vaccine Route Administration Date Status DEPO PROVERA (150 MG/ML) IM Intramuscular December 07, 2016 Administered MEDICAL (GENERAL) HISTORY Type Description Date Medical History asthma Medical History anemia Medical History arthritis Medical History back trouble Surgical History appendectomy 2009 Surgical History kidney stones removed [address] Brown removed lyph node on right side of neck 2016 Hospitalization History surgeries, childbirth
--- OUTSIDE RECORDS SUMMARY | 2018-08-24 07:30 | XMS REPORT ---
Author Author DANN GAMEZ [facility] eClinicalWorks Address Unknown Phone Unavailable Care Team Providers Care Auto Body Technician Name Role Phone DANN GAMEZ Unavailable Allergies No Known Allergies Problems Problem Type Condition Code Onset Dates Condition Status Problem Contact with or exposure to venereal diseases V01.6 Active Assessment Swollen lymph nodes R59.9 Active Problem Problems related to high-risk sexual behavior V69.2 Active Medications No Known Medications Results No Known Results Summary Purpose eClinicalWorks Submission
--- OUTSIDE RECORDS SUMMARY | 2018-08-24 07:30 | XMS REPORT ---
Author Author NISA WELLS [facility] Address [address] [place] [address] Care Team Providers Care Turbine Engine Assembler Name Role Phone NISA WELLS Unavailable PROBLEMS Type Condition ICD9-CM Code VFP43-VN Code Onset Dates Condition Status SNOMED Code Problem Dysthymia F34.1 Active 66910409 Problem Neck mass R22.1 Active 865492931 Problem Contact with or exposure to venereal diseases V01.6 Active 069581791 Assessment Encounter for Depo-Provera contraception Z30.42 Aug, Active 630116241 Problem Paresthesia of both hands R20.2 Active 958369492 Problem Problems related to high-risk sexual behavior V69.2 Active 245235947 ALLERGIES Unknown Allergies SOCIAL HISTORY No smoking Hx information available PLAN OF CARE VITAL SIGNS MEDICATIONS Unknown Medications RESULTS Name Result Date Reference Range TEST, URINE (IN HOUSE) 2016-09-01 RESULTS neg Lot # [id number] Control positive Exp date 04/06 PROCEDURES Procedure Date Ordered Related Diagnosis Body Site URINE TEST Sep 01, 2016 DEPO PROVERA (150 MG/ML) Sep 01, 2016 THER/PROPH/DIAG INJ, SC/IM Sep 01, 2016 IMMUNIZATIONS Vaccine Route Administration Date Status DEPO PROVERA (150 MG/ML) IM Intramuscular Sep 01, 2016 Administered
--- OUTSIDE RECORDS SUMMARY | 2018-08-24 07:30 | XMS REPORT ---
Author Author NISA WELLS Organization e[employer] Address Unknown Phone Unavailable Care Team Providers Care Carcass Washer Name Role Phone NISA WELLS CP Unavailable Allergies No Known Allergies Problems Problem Type Condition Code Onset Dates Condition Status Problem Paresthesia of both hands R20.2 Active Problem Problems related to high-risk sexual behavior V69.2 Active Problem Neck mass R22.1 Active Problem Contact with or exposure to venereal diseases V01.6 Active Assessment Encounter for Depo-Provera contraception Z30.42 Active Medications No Known Medications Procedures Procedure Coding System Code Date DEPO PROVERA (150 MG/ML) CPT-4 J1050 March 26, 2016 THER/PROPH/DIAG INJ, SC/IM CPT-4 22436 March 26, 2016 URINE TEST CPT-4 42762 March 26, 2016 Results No Known Results Summary Purpose eClinicalWorks Submission
--- OUTSIDE RECORDS SUMMARY | 2018-08-24 07:30 | XMS REPORT ---
Author Author NISA WELLS [facility] Address [address] [place] [address] Care Team Providers Care Sound Recordist Name Role Phone NISA WELLS Unavailable PROBLEMS Type Condition ICD9-CM Code SOO14-FK Code Onset Dates Condition Status SNOMED Code Problem Vaginal bleeding N93.9 Active 415159985 Problem Atypical squamous cells of undetermined significance on cytologic smear of vagina (ASC-US) R87.620 Active 594660862 Problem Vaginal high risk human papillomavirus (HPV) DNA test positive R87.811 Active 804522141 Problem Paresthesia of both hands R20.2 Active 582640171 ALLERGIES No Information ENCOUNTERS Encounter Location Date Diagnosis [address] [place] [address] [id number] January, Vaginal bleeding N93.9 and Pruritic rash L28.2 [place] [address] [place] [address] [id number] January, Rash R21 ; Acute urticaria L50.8 and Allergic reaction, urticaria L50.0 [place] [address] [place] [address] [id number] January, Vaginal bleeding N93.9 ; Epigastric abdominal pain R10.13 ; Heartburn R12 and Pelvic pain R10.2 [place] [address] [place] [address] [id number] Dec, Pain of left hand M79.642 ; Pain in right hand M79.641 and Bilateral hand numbness R20.0 [place] [address] [place] [address] [id number] Dec, Vaginal bleeding N93.9 and Pelvic pain R10.2 [place] [address] [place] [address] [id number] Nov, Status post colposcopy Z98.890 ; Vaginal high risk human papillomavirus ( HPV) DNA test positive R87.811 and Atypical squamous cells of undetermined significance on cytologic smear of vagina (ASC-US) R87.620 [address] [place] [address] [id number] 07 Nov, 2017 Vaginal cat B37.3 [place] [address] [place] [address] [id number] 07 Oct, 2017 Well woman exam with routine gynecological exam Z01.419 ; Lump of left breast N63.20 ; High risk sexual behavior Z72.51 ; Vaginal discharge N89.8 and Pigmented skin lesion L81.9 [place] [address] [place] [address] [id number] 30 Sep, 2017 Lump of left breast N63.20 [place] [address] [place] [address] [id number] 04 Sep, 2017 Fever, unspecified R50.9 and Influenza J11.[address] [place] [id number] [id number] 13 Aug, 2017 Dental examination Z01.20 [place] [address] [place] [address] [id number] 29 Jul, 2017 Epigastric abdominal pain R10.13 and Poor appetite R63.0 [facility] [address] [phone] Jul, [place] [address] [place] [address] [id number] Apr, BCP ( control pills) initiation Z30.011 and control counseling Z30.09 [place] [address] [place] [address] [id number] Nov, Depo-Provera contraceptive status Z30.40 and Encounter for Depo-Provera contraception Z30.42 [place] [address] [place] [address] [id number] 17 Nov, 2016 Fever, unspecified R50.9 and Influenza J11.1 [place] [address] [place] [address] [id number] Sep, Routine gynecological examination Z01.419 ; Screening breast examination Z12.39 and High risk sexual behavior Z72.51 [facility] [place] [address] [id number] [place] [address] [id number] Sep, High risk sexual behavior Z72.51 and Trichomonas contact Z20.2 [facility] [place] [id number] [place] [address] [id number] Aug, Encounter for Depo-Provera contraception Z30.42 [facility] [place] [address] [place] [address] [id number] Jun, Sprain of left thumb, subsequent encounter S63.602D [facility] [place] [address] [place] [address] [id number] May, Encounter for Depo-Provera contraception Z30.42 [facility] [place] [id number] [place] [address] [id number] Mar, Dysthymia F34.1 [facility] [place] [address] [id number] Mar, Visit for wound check Z51.89 and Dysthymia F34.1 [facility] [place] [address] [place] [address] [id number] Mar, Encounter for Depo-Provera contraception Z30.42 [facility] [place] [id number] [place] [address] [id number] Feb, Neck mass R22.1 and Paresthesia of both hands R20.2 [facility] [id number] [place] [address] [phone] January, Dental examination Z01.20 [facility] [id number] [place] [address] [id number] January, [place] [id number] [place] [address] [id number] January, Swollen lymph nodes R59.9 [address] [place] [address] [id number] Dec, Swollen lymph nodes R59.9 [place] [address] [place] [address] [id number] Dec, Swollen lymph nodes R59.9 [facility] [address] [place] [id number] [id number] Dec, Encounter for Depo-Provera contraception Z30.42 [facility] [id number] [id number] Nov, Swollen lymph nodes R59.9 and Left wrist pain M25.532 [facility] [address] [id number] Sep, Encounter for initial prescription of injectable contraceptive Z30.013 and Ringworm B35.9 [facility] [id number] [place] [address] [phone] Dec, [facility] [id number] [place] [address] [phone]- [phone] Dec, [facility] [id number] [place] [address] [phone] Feb, [facility] [id number] [place] [address] [phone] Sep, [facility] [id number] [place] [address] [phone] Sep, [facility] [id number] [place] [address] [phone] Jun, [facility] [address] [place] [address] [phone] Jun, [facility] [id number] [place] [address] [phone] Apr, [facility] [id number] [place] [address] [phone] Aug, [facility] [id number] [place] [address] [phone] Aug, [facility] [id number] [place] [address] [phone] Apr, IMMUNIZATIONS No Known Immunizations SOCIAL HISTORY Never Assessed REASON FOR VISIT eye appointment PLAN OF CARE VITAL SIGNS MEDICATIONS No Known Medications RESULTS No Results [...]
--- OUTSIDE RECORDS SUMMARY | 2018-08-24 07:30 | XMS REPORT ---
Author Author NISA WELLS [facility] Address [address] [place] [address] Care Team Providers Care Station Installer And Repairer Name Role Phone NISA WELLS Unavailable PROBLEMS Type Condition ICD9-CM Code [id number] Code Onset Dates Condition Status SNOMED Code Problem Dysthymia F34.1 Active 05398695 Problem Neck mass R22.1 Active 093023268 Problem Contact with or exposure to venereal diseases V01.6 Active 582438266 Assessment Encounter for Depo-Provera contraception Z30.42 May, Active 685756259 Problem Paresthesia of both hands R20.2 Active 261010670 Problem Problems related to high-risk sexual behavior V69.2 Active 334418619 ALLERGIES Unknown Allergies SOCIAL HISTORY No smoking Hx information available PLAN OF CARE VITAL SIGNS MEDICATIONS Unknown Medications RESULTS Name Result Date Reference Range TEST, URINE (IN HOUSE) 2016-06-16 RESULTS neg Lot # [id number] Control + Exp date 12/05 PROCEDURES Procedure Date Ordered Related Diagnosis Body Site URINE TEST Jun 16, 2016 DEPO PROVERA (150 MG/ML) Jun 16, 2016 THER/PROPH/DIAG INJ, SC/IM Jun 16, 2016 IMMUNIZATIONS Vaccine Route Administration Date Status DEPO PROVERA (150 MG/ML) IM Intramuscular Jun 16, 2016 Administered
--- OUTSIDE RECORDS SUMMARY | 2018-08-24 07:30 | XMS REPORT ---
Author Author DANN GAMEZ eClinicalWorks Address Unknown Phone Unavailable Care Team Providers Care Rn Training Name Role Phone DANN GAMEZ Unavailable Allergies No Known Allergies Problems Problem Type Condition Code Onset Dates Condition Status Problem Contact with or exposure to venereal diseases V01.6 Active Assessment Encounter for Depo-Provera contraception Z30.42 Active Problem Problems related to high-risk sexual behavior V69.2 Active Medications No Known Medications Procedures Procedure Coding System Code Date DEPO PROVERA (150 MG/ML) CPT-4 J1050 January 02, 2016 THER/PROPH/DIAG INJ, SC/IM CPT-4 37599 January 02, 2016 URINE TEST CPT-4 76321 January 02, 2016 Results Name Result Date Reference Range Unit Abnormality Flag TEST, URINE (IN HOUSE) ----RESULTS neg [id number] ----Lot # [id number] ----Control POS [id number] ----Exp date 20160102 Summary Purpose eClinicalWorks Submission
--- OUTSIDE RECORDS SUMMARY | 2018-08-24 07:30 | XMS REPORT ---
Author Author MELIDA CRUM [facility] eClinicalWorks Address Unknown Phone Unavailable Care Team Providers Care Emergency Department Name Role Phone MELIDA CRUM CP Unavailable Allergies No Known Allergies Problems Problem Type Condition Code Onset Dates Condition Status Problem Neck mass R22.1 Active Problem Paresthesia of both hands R20.2 Active Problem Dysthymia F34.1 Active Assessment Dysthymia F34.1 Active Problem Problems related to high-risk sexual behavior V69.2 Active Problem Contact with or exposure to venereal diseases V01.6 Active Medications No Known Medications Results No Known Results Summary Purpose eClinicalWorks Submission
--- OUTSIDE RECORDS SUMMARY | 2018-08-24 07:30 | XMS REPORT ---
Author Author MAMIE COPELAND Organization [facility] Address [address] [place] [address] Care Team Providers Care Informatics Manager Name Role Phone MAMIE COPELAND Unavailable PROBLEMS Type Condition ICD9-CM Code [id number] Code Onset Dates Condition Status SNOMED Code Problem Vaginal bleeding N93.9 Active 219638304 Problem Atypical squamous cells of undetermined significance on cytologic smear of vagina (ASC-US) R87.620 Active 049414588 Problem Vaginal high risk human papillomavirus (HPV) DNA test positive R87.811 Active 294261241 Problem Paresthesia of both hands R20.2 Active 923972631 ALLERGIES Substance Reaction Event Type Date Status Aspirin rash Drug Allergy Oct, Active ENCOUNTERS Encounter Location Date Diagnosis [facility] [id number] [place] [address] [id number] January, Vaginal bleeding N93.9 and Pruritic rash L28.[address] [place] [address] [id number] January, Rash R21 ; Acute urticaria L50.8 and Allergic reaction, urticaria L50.[address] [place] [address] [id number] January, Vaginal bleeding N93.9 ; Epigastric abdominal pain R10.13 ; Heartburn R12 and Pelvic pain R10.2 [address] [place] [address] [id number] Dec, Pain of left hand M79.642 ; Pain in right hand M79.641 and Bilateral hand numbness R20.0 [place] [id number] [id number] Dec, Vaginal bleeding N93.9 and Pelvic pain R10.2 [place] [address] [place] [address] [id number] 15 Nov, 2017 Status post colposcopy Z98.890 ; Vaginal high risk human papillomavirus ( HPV) DNA test positive R87.811 and Atypical squamous cells of undetermined significance on cytologic smear of vagina (ASC-US) R87.620 [address] [place] [address] [id number] 07 Nov, 2017 Vaginal cat B37.[address] [id number] 07 Oct, 2017 Well woman exam with routine gynecological exam Z01.419 ; Lump of left breast N63.20 ; High risk sexual behavior Z72.51 ; Vaginal discharge N89.8 and Pigmented skin lesion L81.9 [place] [address] [place] [address] [id number] 30 Sep, 2017 Lump of left breast N63.20 [place] [address] [place] [address] [id number] 04 Sep, 2017 Fever, unspecified R50.9 and Influenza J11.[address] [id number] [id number] 13 Aug, 2017 Dental examination Z01.[address] [place] [address] [id number] 29 Jul, 2017 Epigastric abdominal pain R10.13 and Poor appetite R63.0 [facility] [id number] [phone] Jul, [place] [address] [place] [address] [id number] Apr, BCP ( control pills) initiation Z30.011 and control counseling Z30.09 [place] [address] [place] [address] [id number] Nov, Depo-Provera contraceptive status Z30.40 and Encounter for Depo-Provera contraception Z30.[address] [place] [address] [id number] 17 Nov, 2016 Fever, unspecified R50.9 and Influenza J11.1 [place] [id number] [place] [address] [id number] Sep, Routine gynecological examination Z01.419 ; Screening breast examination Z12.39 and High risk sexual behavior Z72.51 [place] [address] [place] [address] [place] [address] [id number] Sep, High risk sexual behavior Z72.51 and Trichomonas contact Z20.[address] [id number] Aug, Encounter for Depo-Provera contraception Z30.[address] [id number] Jun, Sprain of left thumb, subsequent encounter S63.602D [place] [address] [address] [address] [place] [address] [id number] May, Encounter for Depo-Provera contraception Z30.42 [place] [address] [place] [address] [id number] Mar, Dysthymia F34.1 [place] [address] [place] [address] [id number] Mar, Visit for wound check Z51.89 and Dysthymia F34.1 [place] [address] [place] [address] [id number] Mar, Encounter for Depo-Provera contraception Z30.42 [place] [address] [place] [address] [id number] Feb, Neck mass R22.1 and Paresthesia of both hands R20.2 [facility] [address] [place] [address] [phone] January, Dental examination Z01.20 [place] [address] [place] [address] [id number] January, [place] [address] [place] [address] [id number] January, Swollen lymph nodes R59.9 [place] [address] [place] [address] [id number] Dec, Swollen lymph nodes R59.9 [facility] [id number] [id number] Dec, Swollen lymph nodes R59.9 [facility] [id number] [place] [address] [id number] Dec, Encounter for Depo-Provera contraception Z30.42 [facility] [address] [place] [address] [id number] Nov, Swollen lymph nodes R59.9 and Left wrist pain M25.532 [facility] [address] [id number] [place] [address] [id number] Sep, Encounter for initial prescription of injectable contraceptive Z30.013 and Ringworm B35.9 [facility] [id number] [place] [address] [phone] Dec, [facility] [id number] [place] [address] [phone] Dec, [facility] [id number] [place] [address] [phone] Feb, [facility] [id number] [place] [address] [phone] Sep, [facility] [id number] [place] [address] [phone] Sep, [facility] [id number] [place] [address] [phone] Jun, [facility] [id number] [place] [address] [phone] Jun, [facility] [id number] [place] [address] [phone] Apr, [facility] [id number] [place] [address] [phone] Aug, [facility] [id number] [place] [address] [phone] Aug, [facility] [address] [place] [phone] Apr, IMMUNIZATIONS No Known Immunizations SOCIAL HISTORY Never Assessed REASON FOR VISIT WW- Pap Paco QUIGLEY PLAN OF CARE Activity Details Follow Up 1 Year, prn Reason:WWE Pending Test PAP REFLEX TO HPV IF ASCUS VITAL SIGNS Height 64 in 2017-10-27 Weight 118 lbs 2017-10-27 Temperature 97.6 degrees Fahrenheit 2017-10-27 Heart Rate 88 bpm 2017-10-27 Respiratory Rate 18 2017-10-27 BMI 20.25 kg/m2 2017-10-27 Blood pressure systolic 118 mmHg 2017-10-27 Blood pressure diastolic 68 mmHg 2017-10-27 MEDICATIONS No Known Medications RESULTS No Results PROCEDURES Procedure Date Ordered Result Body Site SPECIMEN HANDLING Oct 27, 2017 CHYLMD TRACH, DNA, AMP PROBE Oct 27, 2017 CULTURE, BACTERIA, OTHER Oct 27, 2017 N.GONORRHOEAE, DNA, AMP PROB Oct 27, 2017 TRICHOMONAS ASSAY W/OPTIC Oct 27, 2017 Bacterial Vaginosis In House Oct 27, 2017 INSTRUCTIONS MEDICATIONS ADMINISTERED No Known Medications [...]
--- OUTSIDE RECORDS SUMMARY | 2018-08-24 07:31 | XMS REPORT ---
Author Author NISA WELLS Organization [facility] Address [address] [place] [address] Care Team Providers Care Faith Doctor Name Role Phone INSA WELLS Unavailable PROBLEMS Type Condition ICD9-CM Code SKZ70-ZG Code Onset Dates Condition Status SNOMED Code Problem Vaginal bleeding N93.9 Active 293916987 Problem Atypical squamous cells of undetermined significance on cytologic smear of vagina (ASC-US) R87.620 Active 864154569 Problem Vaginal high risk human papillomavirus (HPV) DNA test positive R87.811 Active 528212194 Problem Paresthesia of both hands R20.2 Active 577397648 ALLERGIES Substance Reaction Event Type Date Status Aspirin rash Drug Allergy Sep, Active ENCOUNTERS Encounter Location Date Diagnosis [facility] [id number] [place] [address] [id number] January, Vaginal bleeding N93.9 and Pruritic rash L28.[address] [id number] January, Rash R21 ; Acute urticaria L50.8 and Allergic reaction, urticaria L50.0 [id number] [place] [address] [id number] January, Vaginal bleeding N93.9 ; Epigastric abdominal pain R10.13 ; Heartburn R12 and Pelvic pain R10.2 [id number] [place] [address] [id number] Dec, Pain of left hand M79.642 ; Pain in right hand M79.641 and Bilateral hand numbness R20.0 [id number] [place] [address] [id number] Dec, Vaginal bleeding N93.9 and Pelvic pain R10.2 [id number] [place] [address] [id number] Nov, Status post colposcopy Z98.890 ; Vaginal high risk human papillomavirus ( HPV) DNA test positive R87.811 and Atypical squamous cells of undetermined significance on cytologic smear of vagina (ASC-US) R87.620 [address] [place] [address] [id number] 07 Nov, 2017 Vaginal cat B37.[address] [id number] 07 Oct, 2017 Well woman exam with routine gynecological exam Z01.419 ; Lump of left breast N63.20 ; High risk sexual behavior Z72.51 ; Vaginal discharge N89.8 and Pigmented skin lesion L81.[address] [id number] 30 Sep, 2017 Lump of left breast N63.20 [id number] [place] [address] [id number] 04 Sep, 2017 Fever, unspecified R50.9 and Influenza J11.[address] [id number] [id number] 13 Aug, 2017 Dental examination Z01.20 [id number] [place] [address] [id number] 29 Jul, 2017 Epigastric abdominal pain R10.13 and Poor appetite R63.0 [facility] WALK IN [facility] [address] [phone] Jul, [id number] [place] [address] [id number] Apr, BCP ( control pills) initiation Z30.011 and control counseling Z30.09 [id number] [place] [address] [id number] Nov, Depo-Provera contraceptive status Z30.40 and Encounter for Depo-Provera contraception Z30.42 [id number] [place] [address] [id number] 17 Nov, 2016 Fever, unspecified R50.9 and Influenza J11.1 [address] [id number] Sep, Routine gynecological examination Z01.419 ; Screening breast examination Z12.39 and High risk sexual behavior Z72.51 [facility] [id number] [place] [address] [id number] Sep, High risk sexual behavior Z72.51 and Trichomonas contact Z20.2 [id number] [place] [address] [id number] Aug, Encounter for Depo-Provera contraception Z30.42 [facility] [id number] [place] [address] [id number] Jun, Sprain of left thumb, subsequent encounter S63.602D [id number] [place] [address] [id number] May, Encounter for Depo-Provera contraception Z30.42 [address] [place] [address] [id number] Mar, Dysthymia F34.1 [id number] [place] [address] [id number] Mar, Visit for wound check Z51.89 and Dysthymia F34.1 [id number] [place] [address] [id number] Mar, Encounter for Depo-Provera contraception Z30.42 [address] [place] [address] [id number] Feb, Neck mass R22.1 and Paresthesia of both hands R20.2 [facility] [id number] [place] [address] [phone] January, Dental examination Z01.20 [address] [place] [address] [id number] January, [id number] [place] [address] [id number] January, Swollen lymph nodes R59.9 [address] [place] [address] [id number] Dec, Swollen lymph nodes R59.9 [id number] [id number] Dec, Swollen lymph nodes R59.9 [address] [id number] Dec, Encounter for Depo-Provera contraception Z30.42 [address] [id number] Nov, Swollen lymph nodes R59.9 and Left wrist pain M25.532 [address] [id number] Sep, Encounter for initial prescription of injectable contraceptive Z30.013 and Ringworm B35.9 [facility] [id number] [place] [address] [phone] Dec, [facility] [id number] [place] [address] [phone] Dec, [facility] [id number] [place] [address] [phone] Feb, [facility] [id number] [place] [address] 53708- [phone] Sep, [facility] [id number] [place] [address] [phone] Sep, [facility] [id number] [place] [address] [phone]- [phone] Jun, [facility] [id number] [place] [address] [phone] Jun, [facility] [id number] [place] [address] [phone] Apr, [facility] [id number] [place] [address] [phone]- [phone] Aug, [facility] [id number] [place] [address] [phone]- [phone] Aug, [facility] [id number] [place] [address] [phone] Apr, IMMUNIZATIONS No Known Immunizations SOCIAL HISTORY Never Assessed REASON FOR VISIT Cough and drainage that started Wednesday, and has gotted worse, pt states she feels feverish Arnold RN PLAN OF CARE Activity Details Follow Up prn Reason: VITAL SIGNS Height 64 in 2017-09-23 Weight 112.6 lbs 2017-09-23 Temperature 99.5 degrees Fahrenheit 2017-09-23 Heart Rate 100 bpm 2017-09-23 Respiratory Rate 16 2017-09-23 BMI 19.33 kg/m2 2017-09-23 Blood pressure systolic 100 mmHg 2017-09-23 Blood pressure diastolic 58 mmHg 2017-09-23 MEDICATIONS Medication Instructions Dosage Frequency Start Date End Date Duration Status Nexium 24HR 20 mg Orally Once a day 1 capsule 24h Jul, 10 days Not-Taking Clindamycin HCl 150 MG Orally every 8 hrs 2 capsules 8h 5 day(s) Active Motrin IB 800 Orally every 6 hrs 1 tablet as needed 6h 5 days Active RESULTS Name Result Date Reference Range STREP A (IN HOUSE) 2017-09-23 STREP A negative Control positive Lot # [id number] Exp date 05/11/19 PROCEDURES Procedure Date Ordered Result Body Site STREP A ASSAY W/OPTIC Sep 23, 2017 INSTRUCTIONS MEDICATIONS ADMINISTERED No Known Medications [...]
--- OUTSIDE RECORDS SUMMARY | 2018-08-24 07:31 | XMS REPORT ---
Author Author NISA WELLS [facility] Address [address] [place] [address] Care Team Providers Care Gasoline Tractor Operator Name Role Phone NISA WELLS Unavailable PROBLEMS Type Condition ICD9-CM Code APY48-CS Code Onset Dates Condition Status SNOMED Code Problem Dysthymia F34.1 Active 87217738 Problem Paresthesia of both hands R20.2 Active 982097559 Problem Problems related to high-risk sexual behavior V69.2 Active 620048912 Problem Neck mass R22.1 Active 459807008 Problem Contact with or exposure to venereal diseases V01.6 Active 865268549 ALLERGIES Substance Reaction Event Type Date Status Aspirin rash Drug Allergy Nov, Active SOCIAL HISTORY Never Assessed PLAN OF CARE Activity Details Follow Up prn Reason: VITAL SIGNS Height 64 in 2016-12-04 Weight 106.8 lbs 2016-12-04 Temperature 98.7 degrees Fahrenheit 2016-12-04 Heart Rate 88 bpm 2016-12-04 Respiratory Rate 18 2016-12-04 BMI 18.33 kg/m2 2016-12-04 Blood pressure systolic 100 mmHg 2016-12-04 Blood pressure diastolic 60 mmHg 2016-12-04 MEDICATIONS Medication Instructions Dosage Frequency Start Date End Date Duration Status Tamiflu 75 MG Orally Twice a day 1 capsule 12h Nov, 5 day(s) Active Depo-Provera 150 MG/ML 1 ml Active RESULTS Name Result Date Reference Range INFLUENZA A & B (IN HOUSE) 2016-12-04 INFLUENZA A negative INFLUENZA B negative Control positive Lot # [id number] Exp date 09/07/18 UA LONG DIP (IN HOUSE) 2016-12-04 Lot # [id number] Exp date 10/07 Clarity sl cloudy Color yellow Odor neg GLU neg NAA 1+ KET trace SG 1.025 BLO neg pH 6.5 Protein 1+ URO 2.0 NIT neg YASH neg Lot # Exp date PROCEDURES Procedure Date Ordered Result Body Site INFLUENZA ASSAY W/OPTIC December 04, 2016 URINALYSIS, AUTO, W/O SCOPE December 04, 2016 IMMUNIZATIONS No Known Immunizations MEDICAL (GENERAL) HISTORY Type Description Date Medical History asthma Medical History anemia Medical History arthritis Medical History back trouble Surgical History appendectomy 2008 Surgical History kidney stones removed [address] Brown removed lyph node on right side of neck 2016 Hospitalization History surgeries, childbirth
--- OUTSIDE RECORDS SUMMARY | 2018-08-24 07:31 | XMS REPORT ---
Author Author MAMIE COPEALND Organization [facility] Address [address] [place] [address] Care Team Providers Care Fish Stringer Assembler Name Role Phone MAMIE COPELAND Unavailable PROBLEMS Type Condition ICD9-CM Code TKI25-BI Code Onset Dates Condition Status SNOMED Code Problem Dysthymia F34.1 Active 68320585 Problem Paresthesia of both hands R20.2 Active 132709667 Problem Problems related to high-risk sexual behavior V69.2 Active 933134150 Problem Neck mass R22.1 Active 861534082 Problem Contact with or exposure to venereal diseases V01.6 Active 615603803 ALLERGIES Substance Reaction Event Type Date Status Aspirin rash Drug Allergy Sep, Active SOCIAL HISTORY Never Assessed PLAN OF CARE Activity Details Follow Up 1 Year Reason:WWE VITAL SIGNS Height 64 in 2016-10-09 Weight 112.6 lbs 2016-10-09 Temperature 97.8 degrees Fahrenheit 2016-10-09 Heart Rate 99 bpm 2016-10-09 Respiratory Rate 16 2016-10-09 BMI 19.33 kg/m2 2016-10-09 Blood pressure systolic 118 mmHg 2016-10-09 Blood pressure diastolic 70 mmHg 2016-10-09 MEDICATIONS Medication Instructions Dosage Frequency Start Date End Date Duration Status Flagyl 500 MG Orally 2 times a day 1 tablet 12h Sep, Sep, 07 days Active Depo-Provera 150 MG/ML 1 ml Active RESULTS Name Result Date Reference Range PAP TEST, HPV IF ASCUS 2016-10-09 DIAGNOSIS: Specimen adequacy: Clinician provided ICD10: Performed by: Electronically signed by: . . Pathologist provided ICD10: Note: . HPV, high-risk Positive Negative CULTURE, GENITAL 2016-10-09 Genital Culture, Routine Final report Result 1 PDF Report 2016-10-09 PDF Report1 LCLS PROCEDURES Procedure Date Ordered Result Body Site SPECIMEN HANDLING Oct 09, 2016 CULTURE, BACTERIA, OTHER Oct 09, 2016 IMMUNIZATIONS No Known Immunizations MEDICAL (GENERAL) HISTORY Type Description Date Medical History asthma Medical History anemia Medical History arthritis Medical History back trouble Surgical History appendectomy 2008 Surgical History kidney stones removed [address] Brown removed lyph node on right side of neck 2016 Hospitalization History surgeries, childbirth
--- OUTSIDE RECORDS SUMMARY | 2018-08-24 07:31 | XMS REPORT ---
Author Author DANN GAMEZ [employer] Address Unknown Phone Unavailable Care Team Providers Care Customer Business Manager Name Role Phone DANN GAMEZ Unavailable Allergies, Adverse Reactions, Alerts Substance Reaction Event Type N.K.D.A. Info Not Available Non Drug Allergy Problems Problem Type Condition Code Onset Dates Condition Status Problem Contact with or exposure to venereal diseases V01.6 Active Assessment Swollen lymph nodes R59.9 Active Problem Problems related to high-risk sexual behavior V69.2 Active Medications Medication Code System Code Instructions Start Date End Date Status Dosage Depo-Provera [facility] [address]-19 150 MG/ML Intramuscular 1 ml Procedures Procedure Coding System Code Date Office Visit, Est Pt., Level 3 CPT-4 62135 January 10, 2016 Vital Signs Date/Time: January 10, 2016 Temperature 97.8 F Weight 106.2 lbs Height 64 in BMI 18.23 Index Blood Pressure Diastolic 62 mmHg Blood Pressure Systolic 110 mmHg Cardiac Monitoring Heart Rate 76 bpm Results No Known Results Summary Purpose [employer] Submission
--- OUTSIDE RECORDS SUMMARY | 2018-08-24 07:31 | XMS REPORT ---
Author Author MAMIE SÁNCHEZ Organization [employer] Address Unknown Phone Unavailable Care Team Providers Care Electromechanical Engineer Name Role Phone MAMIE SÁCNHEZ CP Unavailable Allergies, Adverse Reactions, Alerts Substance Reaction Event Type Aspirin rash Drug Allergy Problems Problem Type Condition Code Onset Dates Condition Status Problem Neck mass R22.1 Active Problem Paresthesia of both hands R20.2 Active Problem Dysthymia F34.1 Active Assessment Sprain of left thumb, subsequent encounter S63.602D Active Problem Problems related to high-risk sexual behavior V69.2 Active Problem Contact with or exposure to venereal diseases V01.6 Active Medications Medication Code System Code Instructions Start Date End Date Status Dosage Meloxicam [facility] [address]-66 7.5 MG Orally twice a day Jul 01, 2016Jun 1 tablet Depo-Provera [facility] [address]-20 150 MG/ML Intramuscular 1 ml Procedures Procedure Coding System Code Date Office Visit, Est Pt., Level 3 CPT-4 31073 Jul 01, 2016 Vital Signs Date/Time: Jul 01, 2016 Cardiac Monitoring Heart Rate 113 bpm Weight 100.6 lbs Height 64 in BMI 17.27 Index Blood Pressure Diastolic 72 mmHg Blood Pressure Systolic 106 mmHg Results No Known Results Summary Purpose [employer] Submission
--- OUTSIDE RECORDS SUMMARY | 2018-08-24 07:31 | XMS REPORT ---
Author Author MAMIE COPELAND Organization [facility] Address [address] [place] [address] Care Team Providers Care Adaptive Physical Education Specialist Name Role Phone MAMIE COPELAND Unavailable PROBLEMS Type Condition ICD9-CM Code SKJ71-JE Code Onset Dates Condition Status SNOMED Code Problem Vaginal bleeding N93.9 Active 723797039 Problem Atypical squamous cells of undetermined significance on cytologic smear of vagina (ASC-US) R87.620 Active 901248784 Problem Vaginal high risk human papillomavirus (HPV) DNA test positive R87.811 Active 278556691 Problem Paresthesia of both hands R20.2 Active 115164032 ALLERGIES Substance Reaction Event Type Date Status Aspirin rash Drug Allergy Jul, Active ENCOUNTERS Encounter Location Date Diagnosis [facility] [id number] [place] [address] [id number] Feb, [address] [id number] January, Vaginal bleeding N93.9 and Pruritic rash L28.2 [id number] [place] [address] [id number] January, Rash R21 ; Acute urticaria L50.8 and Allergic reaction, urticaria L50.0 [facility] [id number] [place] [address] [id number] January, Vaginal bleeding N93.9 ; Epigastric abdominal pain R10.13 ; Heartburn R12 and Pelvic pain R10.2 [id number] [place] [address] [id number] Dec, Pain of left hand M79.642 ; Pain in right hand M79.641 and Bilateral hand numbness R20.0 [id number] [place] [address] [id number] Dec, Vaginal bleeding N93.9 and Pelvic pain R10.[address] [place] [address] [id number] 15 Nov, 2017 Status post colposcopy Z98.890 ; Vaginal high risk human papillomavirus ( HPV) DNA test positive R87.811 and Atypical squamous cells of undetermined significance on cytologic smear of vagina (ASC-US) R87.620 [id number] [place] [address] [id number] 07 Nov, 2017 Vaginal cat B37.3 [id number] [place] [address] [id number] 07 Oct, 2017 Well woman exam with routine gynecological exam Z01.419 ; Lump of left breast N63.20 ; High risk sexual behavior Z72.51 ; Vaginal discharge N89.8 and Pigmented skin lesion L81.9 [address] [place] [address] [id number] 30 Sep, 2017 Lump of left breast N63.20 [id number] [place] [address] [id number] 04 Sep, 2017 Fever, unspecified R50.9 and Influenza J11.[address] [id number] [id number] 13 Aug, 2017 Dental examination Z01.[address] [place] [address] [id number] 29 Jul, 2017 Epigastric abdominal pain R10.13 and Poor appetite R63.0 [facility] [id number] [phone] Jul, [address] [place] [address] [id number] Apr, BCP ( control pills) initiation Z30.011 and control counseling Z30.[address] [place] [address] [id number] 20 Nov, 2016 Depo-Provera contraceptive status Z30.40 and Encounter for Depo-Provera contraception Z30.42 [id number] [place] [address] [id number] Nov, Fever, unspecified R50.9 and Influenza J11.1 [facility] [id number] [place] [address] [id number] Sep, Routine gynecological examination Z01.419 ; Screening breast examination Z12.39 and High risk sexual behavior Z72.51 [facility] [id number] [place] [address] [id number] 18 Sep, 2016 High risk sexual behavior Z72.51 and Trichomonas contact Z20.2 [facility] [address] [id number] Aug, Encounter for Depo-Provera contraception Z30.42 [address] [address] [id number] Jun, Sprain of left thumb, subsequent encounter S63.602D [id number] [place] [address] [id number] May, Encounter for Depo-Provera contraception Z30.42 [facility] [id number] [place] [address] [id number] Mar, Dysthymia F34.1 [address] [address] [id number] Mar, Visit for wound check Z51.89 and Dysthymia F34.1 [facility] [id number] [place] [address] [id number] Mar, Encounter for Depo-Provera contraception Z30.42 [facility] [id number] [place] [address] [id number] 09 Feb, 2016 Neck mass R22.1 and Paresthesia of both hands R20.2 [facility] [id number] [place] [address] [phone] January, Dental examination Z01.20 [facility] [id number] [place] [address] [id number] January, [id number] [place] [address] [id number] January, Swollen lymph nodes R59.9 [address] [id number] [place] [id number] Dec, Swollen lymph nodes R59.9 [facility] [id number] [place] [address] [id number] Dec, Swollen lymph nodes R59.9 [facility] [id number] [place] [id number] 14 Dec, 2015 Encounter for Depo-Provera contraception Z30.42 [facility] [id number] [place] [address] [id number] Nov, Swollen lymph nodes R59.9 and Left wrist pain M25.532 [facility] [id number] [place] [address] [id number] Sep, Encounter for initial prescription of injectable contraceptive Z30.013 and Ringworm B35.9 [facility] [id number] [place] [address] [phone] Dec, [facility] [id number] [place] [address] [phone] Dec, [facility] [id number] [place] [address] [phone] Feb, [facility] [id number] [place] [address] [phone] Sep, [facility] [id number] [place] [address] [phone]- [phone] Sep, [facility] [id number] [place] [address] [phone] Jun, [facility] [id number] [place] [address] [phone] Jun, [facility] [id number] [place] [address] [phone] Apr, [facility] [id number] [place] [address] [phone] Aug, [facility] [address] [phone] Aug, [facility] [address] [facility] [id number] [place] [address] Apr, IMMUNIZATIONS No Known Immunizations SOCIAL HISTORY Never Assessed REASON FOR VISIT concerned about weight loss, has no appetite x 2 months. zen Howard PLAN OF CARE Activity Details Follow Up 4 Weeks, prn Reason:poor appetite VITAL SIGNS Height 64 in 2017-08-18 Weight 115.4 lbs 2017-08-18 Temperature 97.6 degrees Fahrenheit 2017-08-18 Heart Rate 90 bpm 2017-08-18 Respiratory Rate 16 2017-08-18 BMI 19.81 kg/m2 2017-08-18 Blood pressure systolic 102 mmHg 2017-08-18 Blood pressure diastolic 72 mmHg 2017-08-18 MEDICATIONS Medication Instructions Dosage Frequency Start Date End Date Duration Status Sprintec 28 0.25-35 MG-MCG Orally Once a day 1 tablet 24h Apr, 0 days Not-Taking Nexium 24HR 20 mg Orally Once a day 1 capsule 24h Jul, 10 days Active Depo-Provera 150 MG/ML 1 ml Not-Taking RESULTS No Results PROCEDURES Procedure Date Ordered Result Body Site IMMUNOASSAY,INFECTIOUS AGENT Aug 18, 2017 COMPLETE CBC W/AUTO DIFF WBC Aug 18, 2017 COMPREHEN METABOLIC PANEL Aug 18, 2017 VENIPUNCT, ROUTINE* Aug 18, 2017 INSTRUCTIONS MEDICATIONS ADMINISTERED No Known Medications [...]
--- OUTSIDE RECORDS SUMMARY | 2018-08-24 07:31 | XMS REPORT ---
Author Author DANN GAMEZ e[employer] Address Unknown Phone Unavailable Care Team Providers Care 3D Artist Name Role Phone DANN GAMEZ CP Unavailable Allergies, Adverse Reactions, Alerts Substance Reaction Event Type N.K.D.A. Info Not Available Non Drug Allergy Problems Problem Type Condition Code Onset Dates Condition Status Problem Contact with or exposure to venereal diseases V01.6 Active Assessment Encounter for initial prescription of injectable contraceptive Z30.013 Active Problem Problems related to high-risk sexual behavior V69.2 Active Assessment Ringworm B35.9 Active Medications Medication Code System Code Instructions Start Date End Date Status Dosage GNP Terbinafine Hydrochloride [facility] [address]-51 1 % Externally Twice a day Oct 14, 2015 1 application to affected area Procedures Procedure Coding System Code Date Office Visit, New Pt., Level 3 CPT-4 94947 Oct 14, 2015 DEPO PROVERA (150 MG/ML) CPT-4 J1050 Oct 14, 2015 URINE TEST CPT-4 49154 Oct 14, 2015 THER/PROPH/DIAG INJ, SC/IM CPT-4 17870 Oct 14, 2015 Vital Signs Date/Time: Oct 14, 2015 Temperature 97.4 F Weight 105.4 lbs Height 64 in BMI 18.09 Index Blood Pressure Diastolic 70 mmHg Blood Pressure Systolic 110 mmHg Cardiac Monitoring Heart Rate 92 bpm Results Name Result Date Reference Range Unit Abnormality Flag TEST, URINE (IN HOUSE) ----RESULTS neg [id number] ----Lot # [id number] ----Control pos [id number] ----Exp date [id number] Summary Purpose eClinicalWorks Submission
--- OUTSIDE RECORDS SUMMARY | 2018-08-24 07:31 | XMS REPORT ---
Author Author MAMIE COPELAND Organization [facility] Address [address] [place] [address] Care Team Providers Care Curb Setter Name Role Phone LEANAANTOINE WU, MAMIE Unavailable PROBLEMS Type Condition ICD9-CM Code VSA18-XJ Code Onset Dates Condition Status SNOMED Code Problem Dysthymia F34.1 Active 29467825 Problem Paresthesia of both hands R20.2 Active 133673756 Problem Problems related to high-risk sexual behavior V69.2 Active 734577526 Problem Neck mass R22.1 Active 002364771 Problem Contact with or exposure to venereal diseases V01.6 Active 295068469 ALLERGIES Substance Reaction Event Type Date Status Aspirin rash Drug Allergy Sep, Active SOCIAL HISTORY No smoking Hx information available PLAN OF CARE Activity Details Follow Up prn Reason: VITAL SIGNS Height 64 in 2016-10-07 Weight 109.8 lbs 2016-10-07 Temperature 98.7 degrees Fahrenheit 2016-10-07 Heart Rate 108 bpm 2016-10-07 Respiratory Rate 16 2016-10-07 BMI 18.85 kg/m2 2016-10-07 Blood pressure systolic 120 mmHg 2016-10-07 Blood pressure diastolic 68 mmHg 2016-10-07 MEDICATIONS Medication Instructions Dosage Frequency Start Date End Date Duration Status Flagyl 500 MG Orally 2 times a day 1 tablet 12h 18 Sep, 2016 Sep, 07 days Active Depo-Provera 150 MG/ML 1 ml Active RESULTS Name Result Date Reference Range TEST, URINE (IN HOUSE) 2016-10-07 RESULTS neg Lot # [id number] Control + Exp date 03/2018 GC/CHLAM URINE (STATE) 2016-10-08 CHLAMYDIA GC PROCEDURES Procedure Date Ordered Related Diagnosis Body Site No Charge Oct 07, 2016 URINE TEST Oct 07, 2016 Office Visit, Est Pt., Level 3 Oct 07, 2016 IMMUNIZATIONS No Known Immunizations
--- OUTSIDE RECORDS SUMMARY | 2018-08-24 07:32 | XMS REPORT | Continuity of Care Document ---
Author Author [facility] Organization [facility] Address Unknown Phone Unavailable Allergies Active Description Code Type Severity Reaction Onset Reported/Identified Relationship to Patient Clinical Status Yes codeine [id number] Drug Allergy Unknown SWELLING 01/14/2012 Yes No Known Allergies No Known Allergies Drug Allergy Unknown N/A 2013 Yes No Known Drug Allergies [id number] Drug Allergy Unknown N/A 04/01/2016 Medications There is no data. 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 03/08/2014 Jess Stern MD 658.11 SAMMY RUPT MEMBRAN-DELIV 03/08/2014 Jess Stern MD 658.41 AMNIOTIC INFECTION-DELIV 03/08/2014 Jess Stern MD 658.43 AMNIOTIC INFECT-ANTEPART 03/08/2014 Jess Stern MD V27.0 DELIVER-SINGLE LIVEBORN 10/29/2014 Ot 592.1 10/29/2014 Ot V72.84 10/29/2014 Ot 592.0 07/05/2015 Ot 592.1 07/05/2015 Ot V72.84 07/05/2015 Ot 592.0 11/06/2015 Ot 592.1 11/06/2015 Ot V72.84 11/06/2015 Ot 592.0 11/30/2015 Ot 592.1 11/30/2015 Ot V72.84 11/30/2015 Ot 592.0 11/30/2015 KIKI FOSTER, ANTON Trotter Ot R10.13 EPIGASTRIC PAIN 11/30/2015 KIKI FOSTER, ANTON Trotter Ot R11.2 NAUSEA WITH VOMITING, UNSPECIFIED 11/30/2015 Ot 592.1 11/30/2015 Ot V72.84 11/30/2015 Ot 592.0 11/30/2015 Ot 592.1 11/30/2015 Ot V72.84 11/30/2015 Ot 592.0 12/02/2015 KIKI FOSTER, ANTON Trotter Ot R10.13 12/02/2015 KIKI FOSTER, ANTON Trotter Ot R11.2 12/16/2015 Ot 592.1 12/16/2015 Ot V72.84 12/16/2015 Ot 592.0 12/23/2015 Ot 592.1 12/23/2015 Ot V72.84 12/23/2015 Ot 592.0 01/14/2016 Ot 592.1 CALCULUS OF URETER 01/14/2016 Ot V72.84 EXAM PRE- OPERATIVE NOS 01/14/2016 Ot 592.0 CALCULUS OF KIDNEY 01/29/2016 DANN GAMEZ APRN Ot R59.9 ENLARGED LYMPH NODES, UNSPECIFIED 03/20/2016 LUISA MOCTEZUMA DO Ot R59.0 LOCALIZED ENLARGED LYMPH NODES 03/24/2016 LUISA MOCTEZUMA DO Ot R59.0 LOCALIZED ENLARGED LYMPH NODES 04/01/2016 Ot 592.0 CALCULUS OF KIDNEY 04/01/2016 LUISA MOCTEZUMA DO Ot R59.1 GENERALIZED ENLARGED LYMPH NODES 04/01/2016 LUISA MOCTEZUMA DO Ot Z01.818 ENCOUNTER FOR OTHER PREPROCEDURAL EXAMIN 04/01/2016 DANN GAMEZ APRN Ot R59.9 ENLARGED LYMPH NODES, UNSPECIFIED 04/01/2016 LUISA MOCTEZUMA DO Ot R59.0 LOCALIZED ENLARGED LYMPH NODES 04/02/2016 Ot 592.1 CALCULUS OF URETER 04/02/2016 Ot V72.84 EXAM PRE- OPERATIVE NOS 04/02/2016 Ot 592.0 CALCULUS OF KIDNEY 04/02/2016 DANN GAMEZ PHARMACY ORDER ENTRY TECHNICIAN Ot R59.9 ENLARGED LYMPH NODES, UNSPECIFIED 04/02/2016 MOCTEZUMA DO, LUISA D Ot R59.0 LOCALIZED ENLARGED LYMPH NODES 04/02/2016 MOCTEZUMA DO, LUISA D Ot R59.0 LOCALIZED ENLARGED LYMPH NODES 04/02/2016 MOCTEZUMA DO, LUISA D Ot R59.1 GENERALIZED ENLARGED LYMPH NODES 04/02/2016 MOCTEZUMA DO, LUISA D Ot Z01.818 ENCOUNTER FOR OTHER PREPROCEDURAL EXAMIN 04/08/2016 MOCTEZUMA DO, LUISA D Ot R59.0 LOCALIZED ENLARGED LYMPH NODES 04/10/2016 MOCTEZUMA DO, LUISA D Ot R59.0 LOCALIZED ENLARGED LYMPH NODES 05/18/2016 MOCTEZUMA DO, LUISA D Ot R59.0 LOCALIZED ENLARGED LYMPH NODES 09/07/2016 Ot 592.1 CALCULUS OF URETER 09/07/2016 Ot V72.84 EXAM PRE- OPERATIVE NOS 09/07/2016 Ot 592.0 CALCULUS OF KIDNEY 09/07/2016 DANN GAMEZ PHARMACY ORDER ENTRY TECHNICIAN Ot R59.9 ENLARGED LYMPH NODES, UNSPECIFIED 09/07/2016 MOCTEZUMA DO, LUISA D Ot R59.0 LOCALIZED ENLARGED LYMPH NODES 09/19/2016 Ot 592.1 CALCULUS OF URETER 09/19/2016 Ot V72.84 EXAM PRE- OPERATIVE NOS 09/19/2016 Ot 592.0 CALCULUS OF KIDNEY 09/19/2016 DANN GAMEZ E PHARMACY ORDER ENTRY TECHNICIAN Ot R59.9 ENLARGED LYMPH NODES, UNSPECIFIED 09/19/2016 MOCTEZUMA DO, LUISA D Ot R59.0 LOCALIZED ENLARGED LYMPH NODES 10/28/2017 DANN GAMEZ PHARMACY ORDER ENTRY TECHNICIAN Ot R59.9 ENLARGED LYMPH NODES, UNSPECIFIED 10/28/2017 MOCTEZUMA DO, LUISA D Ot R59.0 LOCALIZED ENLARGED LYMPH NODES 11/10/2017 CONNORFFEMAMIE BRITO Ot N63.20 UNSPECIFIED LUMP IN THE LEFT BREAST, UNS 12/29/2017 DANN GAMEZ PHARMACY ORDER ENTRY TECHNICIAN Ot R59.9 ENLARGED LYMPH NODES, UNSPECIFIED 12/29/2017 MOCTEZUMA DO, LUISA D Ot R59.0 LOCALIZED ENLARGED LYMPH NODES 12/29/2017 DEGRAFFENREID-WU, MAMIE L Ot N63.20 UNSPECIFIED LUMP IN THE LEFT BREAST, UNS 01/03/2018 CATHERINESHIRLEYDANN MELISSA Ot R59.9 ENLARGED LYMPH NODES, UNSPECIFIED 01/03/2018 LUISA MOCTEZUMA DO Ot R59.0 LOCALIZED ENLARGED LYMPH NODES 01/03/2018 DEGRAFFENREID-WU, MAMIE L Ot N63.20 UNSPECIFIED LUMP IN THE LEFT BREAST, UNS 01/17/2018 DEGRAFFENREID-WU, MAMIE L Ot N93.9 ABNORMAL UTERINE AND VAGINAL BLEEDING, U 01/17/2018 DEGRAFFENREID-WU, MAMIE L Ot R10.2 PELVIC AND PERINEAL PAIN 01/26/2018 DEGRAFFENREID-WU, MAMIE L Ot N93.9 ABNORMAL UTERINE AND VAGINAL BLEEDING, U 01/26/2018 DEGRAFFENREID-WU, MAMIE L Ot R10.2 PELVIC AND PERINEAL PAIN 03/21/2018 KRISTINE GRAYSON MD K Ot M79.641 PAIN IN RIGHT HAND 03/21/2018 KRISTINE GRAYSON MD Ot M79.642 PAIN IN LEFT HAND 03/21/2018 KRISTINE GRAYSON MD Ot R20.2 PARESTHESIA OF SKIN 03/21/2018 KRISTINE GRAYSON MD K Ot R51 HEADACHE 03/21/2018 KRISTINE GRAYSON MD Ot M79.641 PAIN IN RIGHT HAND 03/21/2018 KRISTINE GRAYSON MD Ot M79.642 PAIN IN LEFT HAND 03/21/2018 KRISTINE GRAYSON MD Ot R20.2 PARESTHESIA OF SKIN 03/21/2018 KRISTINE GRAYSON MD Ot R51 HEADACHE 03/28/2018 KRISTINE GRAYSON MD Ot M79.641 PAIN IN RIGHT HAND 03/28/2018 KRISTINE GRAYSON MD Ot M79.642 PAIN IN LEFT HAND 03/28/2018 KRISTINE GRAYSON MD K Ot R20.2 PARESTHESIA OF SKIN 03/28/2018 KRISTINE GRAYSON MD K Ot R51 HEADACHE 04/02/2018 KRISTINE GRAYSON MD K Ot M79.641 PAIN IN RIGHT HAND 04/02/2018 KRISTINE GRAYSON MD Ot M79.642 PAIN IN LEFT HAND 04/02/2018 KRISTINE GRAYSON MD Ot R20.2 PARESTHESIA OF SKIN 04/02/2018 KRISTINE GRAYSON MD Ot R51 HEADACHE 04/02/2018 KRISTINE GRAYSON MD Ot M79.641 PAIN IN RIGHT HAND 04/02/2018 KRISTINE GRAYSON MD Ot M79.642 PAIN IN LEFT HAND 04/02/2018 KRISTINE GRAYSON MD Ot R20.2 PARESTHESIA OF SKIN 04/02/2018 KRISTINE GRAYSON MD Ot R51 HEADACHE 04/06/2018 KRISTINE GRAYSON MD Ot M79.641 PAIN IN RIGHT HAND 04/06/2018 KRISTINE GRAYSON MD Ot M79.642 PAIN IN LEFT HAND 04/06/2018 KRISTINE GRAYSON MD Ot R20.2 PARESTHESIA OF SKIN 04/06/2018 KRISTINE GRAYSON MD Ot R51 HEADACHE 04/10/2018 KRISTINE GRAYSON MD Ot M79.641 PAIN IN RIGHT HAND 04/10/2018 KRISTINE GRAYSON MD Ot M79.642 PAIN IN LEFT HAND 04/10/2018 KRISTINE GRAYSON MD Ot R20.2 PARESTHESIA OF SKIN 04/10/2018 KRISTINE GRAYSON MD Ot R51 HEADACHE 04/13/2018 KRISTINE GRAYSON MD Ot M79.641 PAIN IN RIGHT HAND 04/13/2018 KRISTINE GRAYSON MD Ot M79.642 PAIN IN LEFT HAND 04/13/2018 KRISTINE GRAYSON MD Ot R20.2 PARESTHESIA OF SKIN 04/13/2018 KRISTINE GRAYSON MD Ot R51 HEADACHE Procedures Code Description Performed By Performed On 73.59 MANUAL ASSIST Jess Wu MD 03/08/2014 <section xmlns="urn:hl7-org:v3" xmlns:xsi="http://www.3.org/2001/ XMLSchema-instance"> <templateId root="[id number]" /> < templateId root="[id number]" /> <code codeSystemName= "SUMIT" codeSystem="[id number]" code="20164-0" displayName="Results" /> <title>Results</title> <text> <table> <thead> <tr> <th>Test</th> <th>Result</th> <th>Range</th> </tr> </thead> <tbody> <tr> <th colspan="10">CBC - 03/08/14 19: 30</th> </tr> <tr> <td>MEAN CELL HGB</td> <td> 26.4 pg</td> <td>27.0-33.0</td> </tr> <tr> <td> MEAN CELL HGB CONCENTRATION</td> <td>31.1 g/dL</td> <td>32.0- 37.0</td> </tr> <tr> <td>MEAN CELL VOLUME</td> < td>85.1 fl</td> <td>80.0-100.0</td> </tr> <tr> < td>RED BLOOD CELL</td> <td>3.48 m/cumm</td> <td>4.00-6.00</td > </tr> <tr> <td>RED CELL DISTRIBUTION WIDTH</td> <td>15.9 %</td> <td>11.0-15.6</td> </tr> <tr> <td>WHITE BLOOD CELL</td> <td>10.2 k/cumm</td> <td>5.0- 10.0</td> </tr> <tr> <td>HEMOGLOBIN</td> <td> 9.2 gm/dL</td> <td>12.0-16.0</td> </tr> <tr> <td >HEMATOCRIT</td> <td>29.6 %</td> <td>37.0-47.0</td> </tr> <tr> <td>PLATELET COUNT</td> <td>256 k/cumm</td > <td>150-400</td> </tr> <tr> < colspan="10"> DNA GROUP B STREPTOCOCCUS - 03/08/14 21:00</th> </tr> <tr> <td>Microbiology</td> <td> </td> <td /> </tr> <tr> <th colspan="10">CREATININE - 03/09/14 08:15</th> </tr> <tr> <td>EST GFR (MDRD)</td> <td>> 60 mL/min</td> <td>> 59</td> </tr> <tr> <td>CREATININE</td> <td>0.6 mg/dL</td> <td>0.5-1.0</td> </tr> <tr> < colspan="10">CORD VENOUS BLOOD GAS - 03/09/14 10:05</th> </ tr> <tr> <td>VENOUS CORD BLOOD BASE EXCESS</td> <td>- 2.3 meq/L</td> <td>-5.8-0.7</td> </tr> <tr> <td> COMMENT</td> <td>VENOUS </td> <td /> </tr> <tr> <td>VENOUS CORD BLOOD HCO3</td> <td>23.4 meq/L</td> <td>17.4-25.4</td> </tr> <tr> <td>VENOUS CORD BLOOD PCO2< /td> <td>43 mm Hg</td> <td>28-57</td> </tr> <tr > <td>VENOUS CORD BLOOD PH</td> <td>7.35 </td> <td> 7.23-7.46</td> </tr> <tr> <td>VENOUS CORD BLOOD PO2</td> <td>26 mm Hg</td> <td>15-42</td> </tr> <tr> <td>VENOUS CORD BLOOD O2 SAT</td> <td>53 %</td> <td >14-75</td> </tr> <tr> < colspan="10">CORD ARTERIAL BLOOD GAS - 03/09/14 10:05</th> </tr> <tr> <td>ARTERIAL CORD BLD BASE EXCESS</td> <td>-3.7 meq/L</td> <td>-7.6-1.3</td > </tr> <tr> <td>COMMENT</td> <td>ARTERIAL </td > <td /> </tr> <tr> <td>ARTERIAL CORD BICARBONATE</td> <td>23.2 meq/L</td> <td>16.0-27.1</td> </tr> <tr> <td>ARTERIAL CORD BLOOD PCO2</td> <td>49 mm Hg</td> <td>32-69</td> </tr> <tr> <td> ARTERIAL CORD BLOOD PH</td> <td>7.29 </td> <td>7.14-7.40</td> </tr> <tr> <td>ARTERIAL CORD BLOOD PO2</td> <td >26.9 mm Hg</td> <td>8-33</td> </tr> <tr> <td> ARTERIAL CORD BLOOD O2 SAT</td> <td>43 %</td> <td>5-59</td > </tr> <tr> < colspan="10">CBC - 08/18/17 12:55</th> </tr> <tr> <td>WHITE BLOOD CELL COUNT</td> <td> 8.1 Thousand/uL</td> <td>3.8-10.8</td> </tr> <tr> <td>RED BLOOD CELL COUNT</td> <td>4.65 Million/uL</td> <td> 3.80-5.10</td> </tr> <tr> <td>HEMOGLOBIN</td> < td>13.5 g/dL</td> <td>11.7-15.5</td> </tr> <tr> <td>HEMATOCRIT</td> <td>40.7 %</td> <td>35.0-45.0</td> </tr> <tr> <td>MCV</td> <td>87.5 fL</td> <td>80.0-100.0</td> </tr> <tr> <td>MCH</td> <td> 29.0 pg</td> <td>27.0-33.0</td> </tr> <tr> <td> MCHC</td> <td>33.2 g/dL</td> <td>32.0-36.0</td> </tr> <tr> <td>RDW</td> <td>12.2 %</td> <td>11.0 -15.0</td> </tr> <tr> <td>PLATELET COUNT</td> < td>293 Thousand/uL</td> <td>140-400</td> </tr> <tr> <td>MPV</td> <td>10.4 fL</td> <td>7.5-12.5</td> </ tr> <tr> <td>ABSOLUTE NEUTROPHILS</td> <td>3872 cells/ uL</td> <td>2762-9100</td> </tr> <tr> <td> ABSOLUTE LYMPHOCYTES</td> <td>3467 cells/uL</td> <td>850-3900< /td> </tr> <tr> <td>ABSOLUTE MONOCYTES</td> <td> 640 cells/uL</td> <td>200-950</td> </tr> <tr> < td>ABSOLUTE EOSINOPHILS</td> <td>89 cells/uL</td> <td>15-500</ td> </tr> <tr> <td>ABSOLUTE BASOPHILS</td> <td> 32 cells/uL</td> <td>0-200</td> </tr> <tr> <td> NEUTROPHILS</td> <td>47.8 %</td> <td>NRG</td> </tr > <tr> <td>LYMPHOCYTES</td> <td>42.8 %</td> <td>NRG</td> </tr> <tr> <td>MONOCYTES</td> < td>7.9 %</td> <td>NRG</td> </tr> <tr> <td> EOSINOPHILS</td> <td>1.1 %</td> <td>NRG</td> </tr> <tr> <td>BASOPHILS</td> <td>0.4 %</td> < td>NRG</td> </tr> <tr> <th colspan="10">GC/CHLAMYDIA ( SWAB OR URINE)-RAPID - 10/27/17 09:08</th> </tr> <tr> <td >CHLAMYDIA TRACHOMATIS RNA, TMA</td> <td>NOT DETECTED </td> < td>NOT DETECTED</td> </tr> <tr> <td>NEISSERIA GONORRHOEAE RNA, TMA</td> <td>NOT DETECTED </td> <td>NOT DETECTED</td> </tr> <tr> <td>COMMENT</td> <td> < /td> <td>NRG</td> </tr> <tr> <th colspan="10"> CULTURE, GENITAL - 10/27/17 09:08</th> </tr> <tr> <td> CULTURE, GENITAL</td> <td>SEE NOTE </td> <td>NRG</td> < /tr> <tr> <th colspan="10">SUREPATH PAP RFX HPV mRNA E6/E7 - 04/06 09:08</th> </tr> <tr> <td>CLINICAL INFORMATION:</td > <td> </td> <td>NRG</td> </tr> <tr> < td>LMP:</td> <td>10/19/17 </td> <td>NRG</td> </tr> <tr> <td>PREV. PAP:</td> <td>ASCUS/HPV </td> <td> NRG</td> </tr> <tr> <td>PREV. BX:</td> <td>NONE </td> <td>NRG</td> </tr> <tr> <td>SOURCE:</td> <td>Cervix </td> <td>NRG</td> </tr> <tr> <td>STATEMENT OF ADEQUACY:</td> <td> </td> <td>NRG</td> </tr> <tr> <td>INTERPRETATION/RESULT:</td> <td> </ td> <td>NRG</td> </tr> <tr> <td>PARTS SPECIALIST :</td> <td> </td> <td>NRG</td> </tr> <tr> <td>REVIEW PARTS SPECIALIST:</td> <td> </td> <td>NRG</td> </tr> <tr> <td>INFECTION:</td> <td> </td> <td>NRG</td> </tr> <tr> <td>GENERAL CATEGORIZATION:< /td> <td> </td> <td>NRG</td> </tr> <tr> <td>COMMENT:</td> <td> </td> <td>NRG</td> </tr> <tr> <td>PATHOLOGIST:</td> <td> </td> <td>NRG</td > </tr> <tr> <th colspan="10">TISSUE, SPECIMEN A - 09:06</th> </tr> <tr> <td>A SOURCE</td> <td> </td> <td>NRG</td> </tr> <tr> <td>A GROSS DESCRIPTION</td> <td> </td> <td>NRG</td> </tr> < tr> <td>A DIAGNOSIS</td> <td> </td> <td>NRG</td> </tr> <tr> <td>A COMMENT</td> <td> </td> < td>NRG</td> </tr> <tr> <th colspan="10">TSH - 02/10/18 09 :55</th> </tr> <tr> <td>TSH</td> <td>1.51 mIU/L< /td> <td>NRG</td> </tr> </tbody> </table> </text> < entry> <organizer moodCode="EVN" classCode="BATTERY"> <templateId root= "[id number]..22.4.1" /> <id nullFlavor="NA" /> <code codeSystem="local" code="CBC" displayName="CBC" /> <statusCode code= "completed" /> <component> <observation moodCode="EVN" classCode= "OBS"> <templateId root="[id number]...4.2" /> < id nullFlavor="NA" /> <code codeSystem="local" code="MCH" displayName= "MEAN CELL HGB" /> <statusCode code="completed" /> < effectiveTime value="[id number]" /> <value unit="pg" xsi:type="PQ" value="26.4" /> <interpretationCode codeSystem="local" code="*" /> <referenceRange> <observationRange> <text>27.0- 33.0</text> </observationRange> </referenceRange> </ observation> </component> <component> <observation moodCode= "EVN" classCode="OBS"> <templateId root="[id number]...4.2 " /> <id nullFlavor="NA" /> <code codeSystem="local" code= "MCHC" displayName="MEAN CELL HGB CONCENTRATION" /> <statusCode code= "completed" /> <effectiveTime value="" /> <value unit="g/dL" xsi:type="PQ" value="31.1" /> <interpretationCode codeSystem="local" code="*" /> <referenceRange> < observationRange> <text>32.0-37.0</text> </ observationRange> </referenceRange> </observation> </ component> <component> <observation moodCode="EVN" classCode="OBS"> <templateId root="[id number]..4.2" /> <id nullFlavor="NA" /> <code codeSystem="local" code="MCV" displayName= "MEAN CELL VOLUME" /> <statusCode code="completed" /> < effectiveTime value="" /> <value unit="fl" xsi:type="PQ" value="85.1" /> <referenceRange> <observationRange> <text>80.0-100.0</text> </observationRange> </ referenceRange> </observation> </component> <component> <observation moodCode="EVN" classCode="OBS"> <templateId root= "2.16.840.1.169841...22.4.2" /> <id nullFlavor="NA" /> < code codeSystem="local" code="RBC" displayName="RED BLOOD CELL" /> < statusCode code="completed" /> <effectiveTime value="" /> <value unit="m/cumm" xsi:type="PQ" value="3.48" /> < interpretationCode codeSystem="local" code="*" /> <referenceRange> <observationRange> <text>4.00-6.00</text> </ observationRange> </referenceRange> </observation> </ component> <component> <observation moodCode="EVN" classCode="OBS"> <templateId root="[id number].4.2" /> <id nullFlavor="NA" /> <code codeSystem="local" code="RDW" displayName=" RED CELL DISTRIBUTION WIDTH" /> <statusCode code="completed" /> <effectiveTime value="" /> <value unit="%" xsi:type= "PQ" value="15.9" /> <interpretationCode codeSystem="local" code="*" / > <referenceRange> <observationRange> <text> 11.0-15.6</text> </observationRange> </referenceRange> </observation> </component> <component> <observation moodCode="EVN" classCode="OBS"> <templateId root= "11.05.840.1.597374.10.22.4.2" /> <id nullFlavor="NA" /> < code codeSystem="local" code="WBC" displayName="WHITE BLOOD CELL" /> < statusCode code="completed" /> <effectiveTime value="" /> <value unit="k/cumm" xsi:type="PQ" value="10.2" /> < interpretationCode codeSystem="local" code="*" /> <referenceRange> <observationRange> <text>5.0-10.0</text> </ observationRange> </referenceRange> </observation> </ component> <component> <observation moodCode="EVN" classCode="OBS"> <templateId root="11.05.840.1.696630.10.2022.4.2" /> <id nullFlavor="NA" /> <code codeSystem="local" code="HGBT" displayName= "HEMOGLOBIN" /> <statusCode code="completed" /> < effectiveTime value="" /> <value unit="gm/dL" xsi:type="PQ " value="9.2" /> <interpretationCode codeSystem="local" code="*" /> <referenceRange> <observationRange> <text>12.0- 16.0</text> </observationRange> </referenceRange> </ observation> </component> <component> <observation moodCode= "EVN" classCode="OBS"> <templateId root="[id number].2 " /> <id nullFlavor="NA" /> <code codeSystem="local" code= "HCTT" displayName="HEMATOCRIT" /> <statusCode code="completed" /> <effectiveTime value="" /> <value unit="%" xsi: type="PQ" value="29.6" /> <interpretationCode codeSystem="local" code= "*" /> <referenceRange> <observationRange> < text>37.0-47.0</text> </observationRange> </referenceRange> </observation> </component> <component> <observation moodCode="EVN" classCode="OBS"> <templateId root= "[id number].2" /> <id nullFlavor="NA" /> < code codeSystem="local" code="PLT" displayName="PLATELET COUNT" /> < statusCode code="completed" /> <effectiveTime value="" /> <value unit="k/cumm" xsi:type="PQ" value="256" /> < referenceRange> <observationRange> <text>150-400</text> </observationRange> </referenceRange> </observation > </component> </organizer> </entry> <entry> <organizer moodCode= "EVN" classCode="BATTERY"> <templateId root="216.840.1.006224.10...4.1 " /> <id nullFlavor="NA" /> <code codeSystem="local" code="BSBPCR" displayName="DNA GROUP B STREPTOCOCCUS" /> <statusCode code="completed" /> <component> <observation moodCode="EVN" classCode="OBS"> < templateId root="216.840.1.905974.10..4.2" /> <id nullFlavor="NA " /> <code codeSystem="local" code="MB" displayName="Microbiology" /> <statusCode code="completed" /> <effectiveTime value= "" /> <value xsi:type="ST" value="<pre><b>DNA GROUP B STREPTOCOCCUS</b> See BelowDNA GROUP B STREPTOCOCCUS(F) Jair Date/Time: 2013 21:00 Leah Date/Time: 03/10/2014 07:46SOURCE : VAGINAL/RECTALSPEC DESC: GROUP B STREPTOCOCCUS (Abnormal)POSITIVE (Abnormal )[facility] - [phone] [place] [address]</pre>" /> <referenceRange> <observationRange> <text /> </observationRange> </referenceRange> </observation> </ component> </organizer> </entry> <entry> <organizer moodCode="EVN" classCode="BATTERY"> <templateId root="216.840.1.367829.10...4.1" /> <id nullFlavor="NA" /> <code codeSystem="local" code="CREATT" displayName="CREATININE" /> <statusCode code="completed" /> <component > <observation moodCode="EVN" classCode="OBS"> <templateId root= "[id number]" /> <id nullFlavor="NA" /> < code codeSystem="local" code="eGFR" displayName="EST GFR (MDRD)" /> < statusCode code="completed" /> <effectiveTime value="" /> <value unit="mL/min" xsi:type="PQ" value="> 60" /> < referenceRange> <observationRange> <text>> 59</text> </observationRange> </referenceRange> </observation > </component> <component> <observation moodCode="EVN" classCode="OBS"> <templateId root="[id number]" /> <id nullFlavor="NA" /> <code codeSystem="local" code="CREAT" displayName="CREATININE" /> <statusCode code="completed" /> < effectiveTime value="" /> <value unit="mg/dL" xsi:type="PQ " value="0.6" /> <referenceRange> <observationRange> <text>0.5-1.0</text> </observationRange> </ referenceRange> </observation> </component> </organizer> </entry > <entry> <organizer moodCode="EVN" classCode="BATTERY"> <templateId root="[id number]" /> <id nullFlavor="NA" /> <code codeSystem="local" code="CDBGV" displayName="CORD VENOUS BLOOD GAS" /> < statusCode code="completed" /> <component> <observation moodCode= "EVN" classCode="OBS"> <templateId root="840.1.985127.22.4.2 " /> <id nullFlavor="NA" /> <code codeSystem="local" code= "BECORDVEN" displayName="VENOUS CORD BLOOD BASE EXCESS" /> <statusCode code="completed" /> <effectiveTime value="" /> < value unit="meq/L" xsi:type="PQ" value="-2.3" /> <referenceRange> <observationRange> <text>-5.8-0.7</text> </ observationRange> </referenceRange> </observation> </ component> <component> <observation moodCode="EVN" classCode="OBS"> <templateId root="[id number]..22.4.2" /> <id nullFlavor="NA" /> <code codeSystem="local" code="CORDVENCOM" displayName="COMMENT" /> <statusCode code="completed" /> < effectiveTime value="" /> <value unit="" xsi:type="PQ" value="VENOUS" /> <referenceRange> <observationRange> <text /> </observationRange> </referenceRange> </observation> </component> <component> <observation moodCode="EVN" classCode="OBS"> <templateId root= "[id number]..22.4.2" /> <id nullFlavor="NA" /> < code codeSystem="local" code="[id number]" displayName="VENOUS CORD BLOOD HCO3" /> <statusCode code="completed" /> <effectiveTime value= "[id number]" /> <value unit="meq/L" xsi:type="PQ" value="23.4" /> <referenceRange> <observationRange> <text>17.4- 25.4</text> </observationRange> </referenceRange> </ observation> </component> <component> <observation moodCode= "EVN" classCode="OBS"> <templateId root="[id number]..22.4.2 " /> <id nullFlavor="NA" /> <code codeSystem="local" code= "[id number]" displayName="VENOUS CORD BLOOD PCO2" /> <statusCode code= "completed" /> <effectiveTime value="" /> <value unit="mmHg" xsi:type="PQ" value="43" /> <referenceRange> < observationRange> <text>28-57</text> </observationRange > </referenceRange> </observation> </component> < component> <observation moodCode="EVN" classCode="OBS"> < templateId root="2.16.840.1.263674.10...4.2" /> <id nullFlavor="NA " /> <code codeSystem="local" code="PHCORDVEN" displayName="VENOUS CORD BLOOD PH" /> <statusCode code="completed" /> < effectiveTime value="" /> <value unit="" xsi:type="PQ" value="7.35" /> <referenceRange> <observationRange> <text>7.23-7.46</text> </observationRange> </ referenceRange> </observation> </component> <component> <observation moodCode="EVN" classCode="OBS"> <templateId root= "216.840.1.621913.10..22.4.2" /> <id nullFlavor="NA" /> < code codeSystem="local" code="[id number]" displayName="VENOUS CORD BLOOD PO2" / > <statusCode code="completed" /> <effectiveTime value= "" /> <value unit="mmHg" xsi:type="PQ" value="26" /> <referenceRange> <observationRange> <text>15-42</ text> </observationRange> </referenceRange> </ observation> </component> <component> <observation moodCode= "EVN" classCode="OBS"> <templateId root="2.16.840.1.821353.10..22.4.2 " /> <id nullFlavor="NA" /> <code codeSystem="local" code= "SATCORDVEN" displayName="VENOUS CORD BLOOD O2 SAT" /> <statusCode code ="completed" /> <effectiveTime value="[id number]" /> <value unit="%" xsi:type="PQ" value="53" /> <referenceRange> < observationRange> <text>14-75</text> </observationRange > </referenceRange> </observation> </component> </ organizer> </entry> <entry> <organizer moodCode="EVN" classCode="BATTERY"> <templateId root="2.16.840.1.427983.10..22.4.1" /> <id nullFlavor= "NA" /> <code codeSystem="local" code="CDBGA" displayName="CORD ARTERIAL BLOOD GAS" /> <statusCode code="completed" /> <component> < observation moodCode="EVN" classCode="OBS"> <templateId root= "2.16.840.1.905113.10..22.4.2" /> <id nullFlavor="NA" /> < code codeSystem="local" code="BECORDART" displayName="ARTERIAL CORD BLD BASE EXCESS" /> <statusCode code="completed" /> <effectiveTime value="[id number]" /> <value unit="meq/L" xsi:type="PQ" value="-3.7" /> <referenceRange> <observationRange> <text>- 7.6-1.3</text> </observationRange> </referenceRange> </observation> </component> <component> <observation moodCode= "EVN" classCode="OBS"> <templateId root="216.840.1.758598.10..22.4.2 " /> <id nullFlavor="NA" /> <code codeSystem="local" code= "CORDARTCOM" displayName="COMMENT" /> <statusCode code="completed" /> <effectiveTime value="" /> <value unit="" xsi:type ="PQ" value="ARTERIAL" /> <referenceRange> <observationRange > <text /> </observationRange> </referenceRange > </observation> </component> <component> <observation moodCode="EVN" classCode="OBS"> <templateId root= "216.840.1.639765.10..22.4.2" /> <id nullFlavor="NA" /> < code codeSystem="local" code="[id number]" displayName="ARTERIAL CORD BICARBONATE" /> <statusCode code="completed" /> < effectiveTime value="" /> <value unit="meq/L" xsi:type="PQ " value="23.2" /> <referenceRange> <observationRange> <text>16.0-27.1</text> </observationRange> </ referenceRange> </observation> </component> <component> <observation moodCode="EVN" classCode="OBS"> <templateId root= "216.840.1.463839.10.20.22.4.2" /> <id nullFlavor="NA" /> < code codeSystem="local" code="[id number]" displayName="ARTERIAL CORD BLOOD PCO2 " /> <statusCode code="completed" /> <effectiveTime value= "" /> <value unit="mmHg" xsi:type="PQ" value="49" /> <referenceRange> <observationRange> <text>32-69</ text> </observationRange> </referenceRange> </ observation> </component> <component> <observation moodCode= "EVN" classCode="OBS"> <templateId root="216.840.1.307990.10..4.2 " /> <id nullFlavor="NA" /> <code codeSystem="local" code= "PHCORDART" displayName="ARTERIAL CORD BLOOD PH" /> <statusCode code= "completed" /> <effectiveTime value="" /> <value unit="" xsi:type="PQ" value="7.29" /> <referenceRange> < observationRange> <text>7.14-7.40</text> </ observationRange> </referenceRange> </observation> </ component> <component> <observation moodCode="EVN" classCode="OBS"> <templateId root="16.840.1.255761.07.09.22.4.2" /> <id nullFlavor="NA" /> <code codeSystem="local" code="[id number]" displayName="ARTERIAL CORD BLOOD PO2" /> <statusCode code="completed" / > <effectiveTime value="" /> <value unit="mmHg" xsi:type="PQ" value="26.9" /> <referenceRange> < observationRange> <text>8-33</text> </observationRange> </referenceRange> </observation> </component> < component> <observation moodCode="EVN" classCode="OBS"> < templateId root="216.840.1.359510....4.2" /> <id nullFlavor="NA " /> <code codeSystem="local" code="SATCORDART" displayName="ARTERIAL CORD BLOOD O2 SAT" /> <statusCode code="completed" /> < effectiveTime value="" /> <value unit="%" xsi:type="PQ " value="43" /> <referenceRange> <observationRange> <text>5-59</text> </observationRange> </referenceRange > </observation> </component> </organizer> </entry> <entry> <organizer moodCode="EVN" classCode="BATTERY"> <templateId root= "11.05.840.1.525609.10.20.22.4.1" /> <id nullFlavor="NA" /> <code codeSystem="local" code="6399" displayName="CBC" /> <statusCode code= "completed" /> <component> <observation moodCode="EVN" classCode= "OBS"> <templateId root="16.840.1.917059.10.20.22.4.2" /> < id nullFlavor="NA" /> <code codeSystem="local" code="27658841" displayName="WHITE BLOOD CELL COUNT" /> <statusCode code="completed" / > <effectiveTime value="181625981802" /> <value unit="Thousand /uL" xsi:type="PQ" value="8.1" /> <referenceRange> < observationRange> <text>3.8-10.8</text> </ observationRange> </referenceRange> </observation> </ component> <component> <observation moodCode="EVN" classCode="OBS"> <templateId root="11.05.840.1.372258.10.2022.4.2" /> <id nullFlavor="NA" /> <code codeSystem="local" code="29994928" displayName ="RED BLOOD CELL COUNT" /> <statusCode code="completed" /> < effectiveTime value="441163685375" /> <value unit="Million/uL" xsi:type ="PQ" value="4.65" /> <referenceRange> <observationRange> <text>3.80-5.10</text> </observationRange> </ referenceRange> </observation> </component> <component> <observation moodCode="EVN" classCode="OBS"> <templateId root= "216.840.1.780213.10.20.22.4.2" /> <id nullFlavor="NA" /> < code codeSystem="local" code="34888910" displayName="HEMOGLOBIN" /> < statusCode code="completed" /> <effectiveTime value="377573163725" /> <value unit="g/dL" xsi:type="PQ" value="13.5" /> < referenceRange> <observationRange> <text>11.7-15.5</text > </observationRange> </referenceRange> </observation > </component> <component> <observation moodCode="EVN" classCode="OBS"> <templateId root="11.05.840.1.163330.10.20.22.4.2" /> <id nullFlavor="NA" /> <code codeSystem="local" code="78977278 " displayName="HEMATOCRIT" /> <statusCode code="completed" /> <effectiveTime value="812329112584" /> <value unit="%" xsi:type="PQ " value="40.7" /> <referenceRange> <observationRange> <text>35.0-45.0</text> </observationRange> </ referenceRange> </observation> </component> <component> <observation moodCode="EVN" classCode="OBS"> <templateId root= "11.05.840.1.896504.10.20.22.4.2" /> <id nullFlavor="NA" /> < code codeSystem="local" code="40927157" displayName="MCV" /> < statusCode code="completed" /> <effectiveTime value="260743981870" /> <value unit="fL" xsi:type="PQ" value="87.5" /> <referenceRange > <observationRange> <text>80.0-100.0</text> </observationRange> </referenceRange> </observation> </ component> <component> <observation moodCode="EVN" classCode="OBS"> <templateId root="216.840.1.170244.10...4.2" /> <id nullFlavor="NA" /> <code codeSystem="local" code="54741624" displayName ="[facility]" /> <statusCode code="completed" /> <effectiveTime value ="656651502244" /> <value unit="pg" xsi:type="PQ" value="29.0" /> <referenceRange> <observationRange> <text>27.0-33.0 </text> </observationRange> </referenceRange> </ observation> </component> <component> <observation moodCode= "EVN" classCode="OBS"> <templateId root="216.840.1.445436.10...4.2 " /> <id nullFlavor="NA" /> <code codeSystem="local" code= "32041210" displayName="[facility]" /> <statusCode code="completed" /> <effectiveTime value="437088628963" /> <value unit="g/dL" xsi:type= "PQ" value="33.2" /> <referenceRange> <observationRange> <text>32.0-36.0</text> </observationRange> </ referenceRange> </observation> </component> <component> <observation moodCode="EVN" classCode="OBS"> <templateId root= "216.840.1.109211.07.09.224.2" /> <id nullFlavor="NA" /> < code codeSystem="local" code="67847242" displayName="RDW" /> < statusCode code="completed" /> <effectiveTime value="603386261772" /> <value unit="%" xsi:type="PQ" value="12.2" /> < referenceRange> <observationRange> <text>11.0-15.0</text > </observationRange> </referenceRange> </observation > </component> <component> <observation moodCode="EVN" classCode="OBS"> <templateId root="2.16.840.1.610886.07.09.22.4.2" /> <id nullFlavor="NA" /> <code codeSystem="local" code="70724722 " displayName="PLATELET COUNT" /> <statusCode code="completed" /> <effectiveTime value="035243209900" /> <value unit="Thousand/uL" xsi:type="PQ" value="293" /> <referenceRange> < observationRange> <text>140-400</text> </ observationRange> </referenceRange> </observation> </ component> <component> <observation moodCode="EVN" classCode="OBS"> <templateId root="2.16.840.1.909706.07.09.22.4.2" /> <id nullFlavor="NA" /> <code codeSystem="local" code="49049729" displayName ="MPV" /> <statusCode code="completed" /> <effectiveTime value ="621412955872" /> <value unit="fL" xsi:type="PQ" value="10.4" /> <referenceRange> <observationRange> <text>7.5-12.5< /text> </observationRange> </referenceRange> </ observation> </component> <component> <observation moodCode= "EVN" classCode="OBS"> <templateId root="216.840.1.453499.10.20.22.4.2 " /> <id nullFlavor="NA" /> <code codeSystem="local" code= "24838945" displayName="ABSOLUTE NEUTROPHILS" /> <statusCode code= "completed" /> <effectiveTime value="951520533085" /> <value unit="cells/uL" xsi:type="PQ" value="3872" /> <referenceRange> <observationRange> <text>7319-7960</text> </ observationRange> </referenceRange> </observation> </ component> <component> <observation moodCode="EVN" classCode="OBS"> <templateId root="216.840.1.774082.10..22.4.2" /> <id nullFlavor="NA" /> <code codeSystem="local" code="87028658" displayName ="ABSOLUTE LYMPHOCYTES" /> <statusCode code="completed" /> < effectiveTime value="833004874802" /> <value unit="cells/uL" xsi:type= "PQ" value="3467" /> <referenceRange> <observationRange> <text>850-3900</text> </observationRange> </ referenceRange> </observation> </component> <component> <observation moodCode="EVN" classCode="OBS"> <templateId root= "16.840.1.837413.10.20.22.4.2" /> <id nullFlavor="NA" /> < code codeSystem="local" code="23557648" displayName="ABSOLUTE MONOCYTES" /> <statusCode code="completed" /> <effectiveTime value= "923823212464" /> <value unit="cells/uL" xsi:type="PQ" value="640" /> <referenceRange> <observationRange> <text>200- 950</text> </observationRange> </referenceRange> </ observation> </component> <component> <observation moodCode= "EVN" classCode="OBS"> <templateId root="216.840.1.755852.10.20.22.4.2 " /> <id nullFlavor="NA" /> <code codeSystem="local" code= "94162268" displayName="ABSOLUTE EOSINOPHILS" /> <statusCode code= "completed" /> <effectiveTime value="396008134171" /> <value unit="cells/uL" xsi:type="PQ" value="89" /> <referenceRange> <observationRange> <text>15-500</text> </ observationRange> </referenceRange> </observation> </ component> <component> <observation moodCode="EVN" classCode="OBS"> <templateId root="16.840.1.487390.07.09.22.4.2" /> <id nullFlavor="NA" /> <code codeSystem="local" code="13936727" displayName ="ABSOLUTE BASOPHILS" /> <statusCode code="completed" /> < effectiveTime value="347547382948" /> <value unit="cells/uL" xsi:type= "PQ" value="32" /> <referenceRange> <observationRange> <text>0-200</text> </observationRange> </ referenceRange> </observation> </component> <component> <observation moodCode="EVN" classCode="OBS"> <templateId root= "216.840.1.492106.10...4.2" /> <id nullFlavor="NA" /> < code codeSystem="local" code="50146422" displayName="NEUTROPHILS" /> < statusCode code="completed" /> <effectiveTime value="925469520102" /> <value unit="%" xsi:type="PQ" value="47.8" /> < referenceRange> <observationRange> <text>NRG</text> </observationRange> </referenceRange> </observation> </component> <component> <observation moodCode="EVN" classCode= "OBS"> <templateId root="216.840.1.270130.10.20.22.4.2" /> < id nullFlavor="NA" /> <code codeSystem="local" code="41175080" displayName="LYMPHOCYTES" /> <statusCode code="completed" /> < effectiveTime value="491962641776" /> <value unit="%" xsi:type="PQ " value="42.8" /> <referenceRange> <observationRange> <text>NRG</text> </observationRange> </ referenceRange> </observation> </component> <component> <observation moodCode="EVN" classCode="OBS"> <templateId root= "16.840.1.599639.10.2022.4.2" /> <id nullFlavor="NA" /> < code codeSystem="local" code="44607524" displayName="MONOCYTES" /> < statusCode code="completed" /> <effectiveTime value="395397201321" /> <value unit="%" xsi:type="PQ" value="7.9" /> < referenceRange> <observationRange> <text>NRG</text> </observationRange> </referenceRange> </observation> </component> <component> <observation moodCode="EVN" classCode= "OBS"> <templateId root="16.840.1.924960.10.20.22.4.2" /> < id nullFlavor="NA" /> <code codeSystem="local" code="99406919" displayName="EOSINOPHILS" /> <statusCode code="completed" /> < effectiveTime value="553907384749" /> <value unit="%" xsi:type="PQ " value="1.1" /> <referenceRange> <observationRange> <text>NRG</text> </observationRange> </referenceRange > </observation> </component> <component> <observation moodCode="EVN" classCode="OBS"> <templateId root= "11.05.840.1.090108.10.2022.4.2" /> <id nullFlavor="NA" /> < code codeSystem="local" code="54764284" displayName="BASOPHILS" /> < statusCode code="completed" /> <effectiveTime value="009192059292" /> <value unit="%" xsi:type="PQ" value="0.4" /> < referenceRange> <observationRange> <text>NRG</text> </observationRange> </referenceRange> </observation> </component> </organizer> </entry> <entry> <organizer moodCode="EVN" classCode="BATTERY"> <templateId root="11.05.840.1.158653.10..22.4.1" /> <id nullFlavor="NA" /> <code codeSystem="local" code="17013" displayName="GC/CHLAMYDIA (SWAB OR URINE)-RAPID" /> <statusCode code= "completed" /> <component> <observation moodCode="EVN" classCode= "OBS"> <templateId root="11.05.840.1.893130.10.20.22.4.2" /> < id nullFlavor="NA" /> <code codeSystem="local" code="77011300" displayName="CHLAMYDIA TRACHOMATIS RNA, TMA" /> <statusCode code= "completed" /> <effectiveTime value="500969904973" /> <value unit="" xsi:type="PQ" value="NOT DETECTED" /> <referenceRange> <observationRange> <text>NOT DETECTED</text> </ observationRange> </referenceRange> </observation> </ component> <component> <observation moodCode="EVN" classCode="OBS"> <templateId root="16.840.1.619377....4.2" /> <id nullFlavor="NA" /> <code codeSystem="local" code="45994912" displayName ="NEISSERIA GONORRHOEAE RNA, TMA" /> <statusCode code="completed" /> <effectiveTime value="096354825446" /> <value unit="" xsi:type= "PQ" value="NOT DETECTED" /> <referenceRange> < observationRange> <text>NOT DETECTED</text> </ observationRange> </referenceRange> </observation> </ component> <component> <observation moodCode="EVN" classCode="OBS"> <templateId root="11.05.840.1.255601.07.09.22.4.2" /> <id nullFlavor="NA" /> <code codeSystem="local" code="44043436" displayName ="COMMENT" /> <statusCode code="completed" /> <effectiveTime value="452367639490" /> <value unit="" xsi:type="PQ" value="" /> <referenceRange> <observationRange> <text>NRG</text > </observationRange> </referenceRange> </observation > </component> </organizer> </entry> <entry> <organizer moodCode= "EVN" classCode="BATTERY"> <templateId root="11.05.840.1.850395.10...4.1 " /> <id nullFlavor="NA" /> <code codeSystem="local" code="4558" displayName="CULTURE, GENITAL" /> <statusCode code="completed" /> < component> <observation moodCode="EVN" classCode="OBS"> < templateId root="216.840.1.367529.07.09.22.4.2" /> <id nullFlavor="NA " /> <code codeSystem="local" code="86589432" displayName="CULTURE, GENITAL" /> <statusCode code="completed" /> <effectiveTime value="058755394146" /> <value unit="" xsi:type="PQ" value="SEE NOTE" / > <referenceRange> <observationRange> <text>NRG </text> </observationRange> </referenceRange> </ observation> </component> </organizer> </entry> <entry> <organizer moodCode="EVN" classCode="BATTERY"> <templateId root= "11.05.840.1.666645.07.09.22.4.1" /> <id nullFlavor="NA" /> <code codeSystem="local" code="59046" displayName="SUREPATH PAP RFX HPV mRNA E6/E7" / > <statusCode code="completed" /> <component> <observation moodCode="EVN" classCode="OBS"> <templateId root= "16.840.1.570102.07.09.22.4.2" /> <id nullFlavor="NA" /> < code codeSystem="local" code="25358696" displayName="CLINICAL INFORMATION:" /> <statusCode code="completed" /> <effectiveTime value= "830872791434" /> <value unit="" xsi:type="PQ" value="" /> < referenceRange> <observationRange> <text>NRG</text> </observationRange> </referenceRange> </observation> </component> <component> <observation moodCode="EVN" classCode= "OBS"> <templateId root="11.05.840.1.479471.10..22.4.2" /> < id nullFlavor="NA" /> <code codeSystem="local" code="60063110" displayName="LMP:" /> <statusCode code="completed" /> < effectiveTime value="755716880786" /> <value unit="" xsi:type="PQ" value="10/19/17" /> <referenceRange> <observationRange> <text>NRG</text> </observationRange> </ referenceRange> </observation> </component> <component> <observation moodCode="EVN" classCode="OBS"> <templateId root= "11.05.840.1.319859.10..4.2" /> <id nullFlavor="NA" /> < code codeSystem="local" code="81180376" displayName="PREV. PAP:" /> < statusCode code="completed" /> <effectiveTime value="129195330089" /> <value unit="" xsi:type="PQ" value="ASCUS/HPV" /> < referenceRange> <observationRange> <text>NRG</text> </observationRange> </referenceRange> </observation> </component> <component> <observation moodCode="EVN" classCode= "OBS"> <templateId root="11.05.840.1.605967.10.2022.4.2" /> < id nullFlavor="NA" /> <code codeSystem="local" code="91032235" displayName="PREV. BX:" /> <statusCode code="completed" /> < effectiveTime value="654325413179" /> <value unit="" xsi:type="PQ" value="NONE" /> <referenceRange> <observationRange> <text>NRG</text> </observationRange> </referenceRange > </observation> </component> <component> <observation moodCode="EVN" classCode="OBS"> <templateId root= "216.840.1.283526.10.4.2" /> <id nullFlavor="NA" /> < code codeSystem="local" code="46694193" displayName="SOURCE:" /> < statusCode code="completed" /> <effectiveTime value="625264259923" /> <value unit="" xsi:type="PQ" value="[employer]" /> <referenceRange > <observationRange> <text>NRG</text> </ observationRange> </referenceRange> </observation> </ component> <component> <observation moodCode="EVN" classCode="OBS"> <templateId root="2.840.1.029509.07.09.224.2" /> <id nullFlavor="NA" /> <code codeSystem="local" code="17482140" displayName ="STATEMENT OF ADEQUACY:" /> <statusCode code="completed" /> < effectiveTime value="189827795844" /> <value unit="" xsi:type="PQ" value="" /> <referenceRange> <observationRange> <text>NRG</text> </observationRange> </referenceRange> </observation> </component> <component> <observation moodCode="EVN" classCode="OBS"> <templateId root= "16.840.1.702284.07.09.22.4.2" /> <id nullFlavor="NA" /> < code codeSystem="local" code="74280401" displayName="INTERPRETATION/RESULT:" /> <statusCode code="completed" /> <effectiveTime value= "007109427470" /> <value unit="" xsi:type="PQ" value="" /> < interpretationCode codeSystem="local" code="*" /> <referenceRange> <observationRange> <text>NRG</text> </ observationRange> </referenceRange> </observation> </ component> <component> <observation moodCode="EVN" classCode="OBS"> <templateId root="11.05.840.1.172544.10.4.2" /> <id nullFlavor="NA" /> <code codeSystem="local" code="56172938" displayName ="PARTS SPECIALIST:" /> <statusCode code="completed" /> < effectiveTime value="895411601204" /> <value unit="" xsi:type="PQ" value="" /> <referenceRange> <observationRange> <text>NRG</text> </observationRange> </referenceRange> </observation> </component> <component> <observation moodCode="EVN" classCode="OBS"> <templateId root= "840.1.226173.07.09.22.4.2" /> <id nullFlavor="NA" /> < code codeSystem="local" code="16969695" displayName="REVIEW PARTS SPECIALIST:" / > <statusCode code="completed" /> <effectiveTime value= "926302416977" /> <value unit="" xsi:type="PQ" value="" /> < referenceRange> <observationRange> <text>NRG</text> </observationRange> </referenceRange> </observation> </component> <component> <observation moodCode="EVN" classCode= "OBS"> <templateId root="11.05.840.1.009911.07.09.22.4.2" /> < id nullFlavor="NA" /> <code codeSystem="local" code="77753205" displayName="INFECTION:" /> <statusCode code="completed" /> < effectiveTime value="869972061342" /> <value unit="" xsi:type="PQ" value="" /> <referenceRange> <observationRange> <text>NRG</text> </observationRange> </referenceRange> </observation> </component> <component> <observation moodCode="EVN" classCode="OBS"> <templateId root= "11.05.840.1.850422.07.09.22.4.2" /> <id nullFlavor="NA" /> < code codeSystem="local" code="81900056" displayName="GENERAL CATEGORIZATION:" / > <statusCode code="completed" /> <effectiveTime value= "335977552144" /> <value unit="" xsi:type="PQ" value="" /> < interpretationCode codeSystem="local" code="*" /> <referenceRange> <observationRange> <text>NRG</text> </ observationRange> </referenceRange> </observation> </ component> <component> <observation moodCode="EVN" classCode="OBS"> <templateId root="840.1.006624.07.09.22.4.2" /> <id nullFlavor="NA" /> <code codeSystem="local" code="62929907" displayName ="COMMENT:" /> <statusCode code="completed" /> <effectiveTime value="954602096449" /> <value unit="" xsi:type="PQ" value="" /> <referenceRange> <observationRange> <text>NRG</text > </observationRange> </referenceRange> </observation > </component> <component> <observation moodCode="EVN" classCode="OBS"> <templateId root="11.05.840.1.585222.07.09.22.4.2" /> <id nullFlavor="NA" /> <code codeSystem="local" code="09429388 " displayName="PATHOLOGIST:" /> <statusCode code="completed" /> <effectiveTime value="703619256222" /> <value unit="" xsi:type="PQ" value="" /> <referenceRange> <observationRange> <text>NRG</text> </observationRange> </referenceRange> </observation> </component> </organizer> </entry> <entry> < organizer moodCode="EVN" classCode="BATTERY"> <templateId root= "216.840.1.841126.10..4.1" /> <id nullFlavor="NA" /> <code codeSystem="local" code="26887" displayName="TISSUE, SPECIMEN A" /> < statusCode code="completed" /> <component> <observation moodCode= "EVN" classCode="OBS"> <templateId root="216.840.1.699469.10..4.2 " /> <id nullFlavor="NA" /> <code codeSystem="local" code= "48671193" displayName="A SOURCE" /> <statusCode code="completed" /> <effectiveTime value="602774843728" /> <value unit="" xsi:type= "PQ" value="" /> <referenceRange> <observationRange> <text>NRG</text> </observationRange> </referenceRange > </observation> </component> <component> <observation moodCode="EVN" classCode="OBS"> <templateId root= "216.840.1.237967.07.09.22.4.2" /> <id nullFlavor="NA" /> < code codeSystem="local" code="40197887" displayName="A GROSS DESCRIPTION" /> <statusCode code="completed" /> <effectiveTime value= "604614547831" /> <value unit="" xsi:type="PQ" value="" /> < referenceRange> <observationRange> <text>NRG</text> </observationRange> </referenceRange> </observation> </component> <component> <observation moodCode="EVN" classCode= "OBS"> <templateId root="16.840.1.615793.07.09.22.4.2" /> < id nullFlavor="NA" /> <code codeSystem="local" code="77280926" displayName="A DIAGNOSIS" /> <statusCode code="completed" /> < effectiveTime value="331883010371" /> <value unit="" xsi:type="PQ" value="" /> <referenceRange> <observationRange> <text>NRG</text> </observationRange> </referenceRange> </observation> </component> <component> <observation moodCode="EVN" classCode="OBS"> <templateId root= "11.05.840.1.479096.07.09.22.4.2" /> <id nullFlavor="NA" /> < code codeSystem="local" code="78458149" displayName="A COMMENT" /> < statusCode code="completed" /> <effectiveTime value="786091566084" /> <value unit="" xsi:type="PQ" value="" /> <referenceRange> <observationRange> <text>NRG</text> </ observationRange> </referenceRange> </observation> </ component> </organizer> </entry> <entry> <organizer moodCode="EVN" classCode="BATTERY"> <templateId root="16.840.1.049641.1022.4.1" /> <id nullFlavor="NA" /> <code codeSystem="local" code="899" displayName ="TSH" /> <statusCode code="completed" /> <component> < observation moodCode="EVN" classCode="OBS"> <templateId root= "2.16.840.1.165297.10.20.22.4.2" /> <id nullFlavor="NA" /> < code codeSystem="local" code="65748939" displayName="TSH" /> < statusCode code="completed" /> <effectiveTime value="046000830305" /> <value unit="mIU/L" xsi:type="PQ" value="1.51" /> < referenceRange> <observationRange> <text>NRG</text> </observationRange> </referenceRange> </observation> </component> </organizer> </entry></section> Encounters ACCT No. Visit Date/Time Discharge Status Pt. Type Provider Facility Loc./Unit Complaint [id number] 03/19/2018 07:46:00 03/19/2018 23:59:59 CLS Outpatient KRISTINE GRAYSON MD [facility] RAD PARESTHESIA UPPER LOWER EXTREMITIES [id number] 01/14/2018 14:14:00 01/14/2018 23:59:59 CLS Outpatient MAMIE SÁNCHEZ [facility] RAD N93.9 VAGINAL BLEEDING [id number] 10/28/2017 12:48:00 10/28/2017 23:59:59 CLS Outpatient MAMIE SÁNCHEZ [facility] RAD LUMP OF LEFT BREAST [id number] 04/02/2016 07:12:00 04/02/2016 11:45:00 DIS Outpatient LUISA MOCTEZUMA DO [facility] SDC LYMPHADENOPATHY [id number] 04/01/2016 12:07:00 04/01/2016 15:15:00 DIS Outpatient LUISA MOCTEZUMA DO [facility] PREOP LYMPHADENOPATHY [id number] 03/19/2016 11:02:00 03/19/2016 23:59:59 CLS Outpatient LUISA MOCTEZUMA DO [facility] RAD RT NECK MASS [id number] 01/14/2016 13:52:00 01/14/2016 23:59:59 CLS Outpatient VERA DANNGregory Jenkins APRN [facility] RAD SWOLLEN LYMPH NODES [id number] 11/30/2015 07:14:00 11/30/2015 10:28:00 DIS Emergency KIKI FOSTER, ANTON Trotter [facility] ER R RIB CAGE PAIN [id number] 06/05/2012 04:37:00 Document Registration [id number] 04/29/2012 00:00:00 Document Registration [id number] 01/29/2012 11:27:00 Document Registration [id number] 01/15/2012 05:38:00 Document Registration [id number] 01/14/2012 14:24:00 Document Registration [id number] 01/11/2012 06:25:00 Document Registration [id number] 07/04/2014 00:35:21 ACT Document Registration [id number] 07/03/2014 15:55:00 07/03/2014 16:52:00 DIS Emergency Yolande FOSTER, Timothy Harvey [facility] [id number] 03/08/2014 19:28:00 03/11/2014 14:20:00 DIS Inpatient Leena FOSTER, Jess Jenkins [facility] [id number].4TN [id number] 02/10/2018 08:20:00 02/10/2018 23:59:59 CLS Outpatient NISA WELLS APRN [facility] [id number] 02/10/2018 08:20:00 Document Registration [id number] 12/02/2017 08:20:00 Document Registration [id number] 10/27/2017 09:08:00 Document Registration [id number] 10/27/2017 08:40:00 Document Registration [id number] 08/18/2017 12:20:00 Document Registration
[2018-08-24 07:44] LABS: BILIRUBIN,URINE NEGATIVE (NEGATIVE); CLARITY,URINE CLEAR; COLOR,URINE RED; GLUCOSE, URINE (UA) NEGATIVE (NEGATIVE); KETONES,URINE NEGATIVE (NEGATIVE); LEUKOCYTE ESTERASE ,URINE 1+ (NEGATIVE); NITRITE,URINE NEGATIVE (NEGATIVE); PH,URINE 7 (5-9); PROTEIN,URINE 2+ (NEGATIVE); UROBILINOGEN,URINE NORMAL (NORMAL)
[2018-08-24 07:52] LABS: BACTERIA,URINE TRACE /HPF; RBC,URINE >100 /HPF; SQUAMOUS EPITHELIAL CELL,UR 0-2 /HPF; WBC,URINE 0-2 /HPF
[2018-08-24 07:59] LABS: BASOPHILS % (AUTO) 0 % (0-10); EOSINOPHILS # (AUTO) 0.2 10^3/uL (0.0-0.3); EOSINOPHILS % (AUTO) 2 % (0-10); HEMATOCRIT 42 % (35-52); HEMOGLOBIN 13.6 G/DL (11.5-16.0); LYMPHOCYTES # (AUTO) 2.1 X 10^3 (1.0-4.0); LYMPHOCYTES % (AUTO) 29 % (12-44); MEAN CORPUSCULAR HEMOGLOBIN 29 PG (25-34); MEAN CORPUSCULAR HGB CONC 33 G/DL (32-36); MEAN CORPUSCULAR VOLUME 88 FL (80-99); MEAN PLATELET VOLUME 9.8 FL (7.4-10.4); MONOCYTES # (AUTO) 0.7 X 10^3 (0.0-1.0); MONOCYTES % (AUTO) 10 % (0-12); NEUTROPHILS # (AUTO) 4.3 X 10^3 (1.8-7.8); NEUTROPHILS % (AUTO) 59 % (42-75); PLATELET COUNT 264 10^3/uL (130-400); RED BLOOD COUNT 4.73 10^6/uL (4.35-5.85); RED CELL DISTRIBUTION WIDTH 12.3 % (10.0-14.5); WHITE BLOOD COUNT 7.3 10^3/uL (4.3-11.0)
--- NOTE | 2018-08-24 09:43 | Diagnostic Imaging Report ---
INDICATION: Vaginal bleeding. FINDINGS: Uterus measures 6.6 x 3.9 x 3.2 cm. Endometrium is 9 mm in thickness. No intrauterine gestational sac is seen. No myometrial mass is identified. The right ovary measures 2.7 x 2.2 x 1.6 cm and the left ovary measures 2.9 x 2.3 x 2.1 cm. There is blood flow to both ovaries. Both ovaries contain small follicles. No adnexal mass or free fluid is seen. IMPRESSION: No evidence of intrauterine or ectopic . Dictated by: Dictated on workstation # [id number]
--- NOTE | 2018-08-24 10:29 | ED GU-Female ---
General Chief Complaint: -Female Stated Complaint: VAGINAL BLEEDING;7WKS PREG Nursing Triage Note: PT AMBULATED TO ROOM 9 PT CO OF VAGINAL BLEEDING AND IS APPROX 7 WEEKS . PT STATES STARTED BLEEDING THIS AM AT 0600, STATES HAS PASSED SOME CLOTS. HAS 5/10 CRAMPING IN ABD Nursing Sepsis Screen: No Definite Risk Source: patient Exam Limitations: no limitations History of Present Illness Date Seen by Provider: Aug 24, 2018 Time Seen by Provider: 07:24 Initial Comments This 23-year-old young lady presents to the emergency room with complaints of vaginal bleeding. She estimates that she is around 7 weeks gestational age by her last menstrual period which was approximately June 29. She is having cramps associated with the passage of some blood clots this morning. She has an appointment for obstetrical care on September 09 at [facility] but she has not yet had an ultrasound. She reports she is still bleeding after being checked into her exam room. Patient reports she has had delivery of twins and a miscarriage in the past. She did not get RhoGAM when she lost her twin gestation. Her blood type is O negative. She is afebrile. Bleeding started earlier this morning. Allergies and Home Medications Allergies Coded Allergies: No Known Drug Allergies (Unverified , 04/01/16) Patient Home Medication List Home Medication List Reviewed: Yes Review of Systems Review of Systems Constitutional: no symptoms reported EENTM: no symptoms reported Respiratory: no symptoms reported Cardiovascular: no symptoms reported Gastrointestinal: no symptoms reported : Yes LMP: Jun 29, 2018 Musculoskeletal: no symptoms reported Skin: no symptoms reported Psychiatric/Neurological: No Symptoms Reported Endocrine: No Symptoms Reported Past Aiewsxi-Vyqpmk-Ptmhis Hx Past Med/Social Hx: Reviewed and Corrections made Patient Social History Recent Foreign Travel: No Contact w/Someone Who Travel: No Recent Infectious Disease Expo: No Past Medical History Surgeries: Yes (Resection of benign neck mass) Appendectomy, Renal (Kidney stone retrieval and laser surgery) Respiratory: Yes Asthma Cardiac: No Neurological: No : Yes Last Menstrual Period: Jun 29, 2018 Hx : 5 Hx Para: 1 Hx Total # of Abortions (Sp): 1 Reproductive Disorders: Yes ( delivery late miscarriage with of twin infants) Genitourinary: Yes Kidney Stones Gastrointestinal: No Musculoskeletal: No Endocrine: No HEENT: No Cancer: No Psychosocial: No Physical Exam Vital Signs Vital Signs - First Documented 08/24/18 07:30 Temp 98.0 Pulse 74 Resp 18 B/P (MAP) 122/90 (101) Pulse Ox 99 Capillary Refill : Less Than 3 Seconds Height, Weight, BMI Height: 5'3.00" Weight: 107lbs. 0.0oz. 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, no motor/sensory deficits, alert, normal mood/affect, oriented x 3 Skin: normal color, warm/dry Progress/Results/Core Measures Suspected Sepsis Recent Fever Within 48 Hours: No Infection Criteria Present: None New/Unexplained Altered Menta: No Sepsis Screen: No Definite Risk SIRS Temperature:98.0 Pulse: 74 Respiratory Rate: 18 Laboratory Tests 08/24/18 07:49: White Blood Count 7.3 Blood Pressure 122 /90 Mean: 101 Laboratory Tests 08/24/18 07:49: Platelet Count 264 Results/Orders Lab Results Laboratory Tests Test 08/24/18 07:05 08/24/18 07:30 08/24/18 07:49 Range/Units Lab Scanned Report LAB Reports [id number] Urine Color RED H Urine Clarity CLEAR Urine pH 7 5-9 Urine Specific [place] 1.005 L 1.016-1.022 Urine Protein 2+ H NEGATIVE Urine Glucose (UA) NEGATIVE NEGATIVE Urine Ketones NEGATIVE NEGATIVE Urine Nitrite NEGATIVE NEGATIVE Urine Bilirubin NEGATIVE NEGATIVE Urine Urobilinogen NORMAL NORMAL MG/DL Urine Leukocyte Esterase 1+ H NEGATIVE Urine RBC (Auto) 5+ H NEGATIVE Urine RBC >100 H /HPF Urine WBC 0-2 /HPF Urine Squamous Epithelial Cells 0-2 /HPF Urine Crystals NONE /LPF Urine Bacteria TRACE /HPF Urine Casts NONE /LPF Urine Mucus NEGATIVE /LPF Urine Culture Indicated NO White Blood Count 7.3 4.3-11.0 10^3/uL Red Blood Count 4.73 4.35-5.85 10^6/uL Hemoglobin 13.6 11.5-16.0 G/DL Hematocrit 42 35-52 % Mean Corpuscular Volume 88 80-99 FL Mean Corpuscular Hemoglobin 29 25-34 PG Mean Corpuscular Hemoglobin Concent 33 32-36 G/DL Red Cell Distribution Width 12.3 10.0-14.5 % Platelet Count 264 130-400 10^3/uL Mean Platelet Volume 9.8 7.4-10.4 FL Neutrophils (%) (Auto) 59 42-75 % Lymphocytes (%) (Auto) 29 12-44 % Monocytes (%) (Auto) 10 0-12 % Eosinophils (%) (Auto) 2 0-10 % Basophils (%) (Auto) 0 0-10 % Neutrophils # (Auto) 4.3 1.8-7.8 X 10^3 Lymphocytes # (Auto) 2.1 1.0-4.0 X 10^3 Monocytes # (Auto) 0.7 0.0-1.0 X 10^3 Eosinophils # (Auto) 0.2 0.0-0.3 10^3/uL Basophils # (Auto) 0.0 0.0-0.1 10^3/uL Human Chorionic Gonadotropin, Quant 3352 H <5 MIU/ML My Orders Orders - TAN PARMAR MD Cbc With Automated Diff (08/24/18 07:24) Hcg,Quantitative (08/24/18 07:24) Ua Culture If Indicated (08/24/18 07:24) Abo Rh Type (08/24/18 07:24) Us Ob Transvaginal [id number] (08/24/18 08:06) Rhogam Administration (08/24/18 10:03) Rh Immune Globulin Rhophylac (08/24/18 10:03) Rhogam Administration (08/24/18 10:03) Antibody Screen (08/24/18 07:49) Vital Signs/I&O Capillary Refill : Less Than 3 Seconds Blood Pressure Mean: 101 Progress Note : Progress Note HCG level was low for gestational age. Ultrasound revealed no ectopic or intrauterine . Miscarriage was likely complete. Because of patient's obstetrical history, I advised that she follow-up with a women's health provider before attempting to get again. Diagnostic Imaging Diagonstic Imaging: Ultrasound Plain Films/CT/US/NM/MRI: pelvis Comments NAME: DA ALVES [facility] REC#: [id number] PT STATUS: DEP ER : 1995 PHYSICIAN: TAN PARMAR MD ADMIT DATE: 08/24/18/ER Signed Date of Exam: 08/24/18 OB TRANSVAGINAL [id number] INDICATION: Vaginal bleeding. FINDINGS: Uterus measures 6.6 x 3.9 x 3.2 cm. Endometrium is 9 mm in thickness. No intrauterine gestational sac is seen. No myometrial mass is identified. The right ovary measures 2.7 x 2.2 x 1.6 cm and the left ovary measures 2.9 x 2.3 x 2.1 cm. There is blood flow to both ovaries. Both ovaries contain small follicles. No adnexal mass or free fluid is seen. IMPRESSION: No evidence of intrauterine or ectopic . Dictated by: Dictated on workstation # [id number] Dict: 08/24/1841 Trans: 08/24/18 1532 Interpreted by: REJI ESTEVES MD Electronically signed by: REJI ESTEVES MD 08/24/18 1532 Departure Impression Primary Impression: Miscarriage Additional Impression: Rh(D) positive Disposition: 01 HOME, SELF-CARE Condition: Improved Departure-Patient Inst. Decision time for Depature: 10:15 Referrals: MAMIE SÁNCHEZ (PCP/Family) Primary Care Physician Patient Instructions: Miscarriage, Repeated Miscarriage Add. Discharge Instructions: There was no evidence of viable on your ultrasound. It appears that you have had a miscarriage. Follow-up with your women's health provider soon as possible, preferably within the next week. Review your antibody screening test with your doctor. Do not attempt to get again until discussing with your women's health provider. For pain you may take ibuprofen up to 400 mg every 6 hours as needed. Add Tylenol (acetaminophen) up to 650 mg every 6 hours as needed. Return to care if you have worsening symptoms including fever over 100, increasing pain, increasing bleeding, etc. All discharge instructions reviewed with patient and/or family. Voiced understanding. Copy Copies To 1: DOMINIC MCALLISTER JOSHUA T MD Aug 24, 2018 10:29
[2018-08-24 10:37] VITALS: BP 116/68
== END 2018-08-24 10:37 | disposition home or self-care (01) ==
LOC: EDUNIT# 07:03 → ER 07:05
DX: O03.9 Complete or unspecified spontaneous abortion without complication (principal); O26.891 Other specified pregnancy related conditions, first trimester; Z67.40 Type O blood, Rh positive; O99.511 Diseases of the respiratory system complicating pregnancy, first trimester; J45.909 Unspecified asthma, uncomplicated; Z3A.01 Less than 8 weeks gestation of pregnancy; Z87.59 Personal history of other complications of pregnancy, childbirth and the puerperium; Z98.890 Other specified postprocedural states; Z90.49 Acquired absence of other specified parts of digestive tract; Z87.442 Personal history of urinary calculi
CPT/HCPCS: 36415; 76817; 81000; 84702; 85025; 86850; 86900; 86901; 96372

== ENCOUNTER 2018-11-24 22:13 | Emergency (ER) | payer BC, MEDICAID ==
[~2018-11-24] VITALS: Ht 160 cm; Wt 49.9 kg
[~2018-11-24 22:13] MED LIST changes: -HYDR-3454 PO; +HYDR-3455 PO
--- NOTE | 2018-11-24 23:00 | NUR ---
PT REPORTS UPPER RT SIDE DENTAL PAIN FOR APPROX X2 DAYS.
[2018-11-24 23:03] LABS: BASOPHILS % (AUTO) 0 % (0-10); EOSINOPHILS # (AUTO) 0.1 10^3/uL (0.0-0.3); EOSINOPHILS % (AUTO) 1 % (0-10); HEMATOCRIT 37 % (35-52); HEMOGLOBIN 12.4 G/DL (11.5-16.0); LYMPHOCYTES # (AUTO) 2.7 X 10^3 (1.0-4.0); LYMPHOCYTES % (AUTO) 20 % (12-44); MEAN CORPUSCULAR HEMOGLOBIN 29 PG (25-34); MEAN CORPUSCULAR HGB CONC 33 G/DL (32-36); MEAN CORPUSCULAR VOLUME 87 FL (80-99); MEAN PLATELET VOLUME 9.7 FL (7.4-10.4); MONOCYTES % (AUTO) 8 % (0-12); NEUTROPHILS # (AUTO) 9.4 X 10^3 (1.8-7.8); NEUTROPHILS % (AUTO) 72 % (42-75); PLATELET COUNT 248 10^3/uL (130-400); RED CELL DISTRIBUTION WIDTH 12.7 % (10.0-14.5); WHITE BLOOD COUNT 13.2 10^3/uL (4.3-11.0)
--- NOTE | 2018-11-24 23:12 | ED GU-Female ---
General Chief Complaint: -Female Stated Complaint: VAG BLEEDING 8 WEEKS Nursing Triage Note: PT AMB TO ROOM #10 W/O DIFFICULTY. A&OX4. C/O VAGINAL BLEEDING FOR APPROX X2 DAYS. PT REPORTS BLEEDING STARTED OUT LIGHT PINK SPOTTING AND HAS PROGRESSED TO DARK RED SPOTTING @ THIS TIME. PT STATES, "ITS NOT HEAVY ENOUGH TO HAVE TO WEAR A PAD, I ONLY NOTICE IT WHEN I WIPE." PT REPORTS TO BE APPROX 8 WKS . DENIES ABD PAIN OR DISCOMFORT. Nursing Sepsis Screen: No Definite Risk History of Present Illness Date Seen by Provider: Nov 24, 2018 Time Seen by Provider: 23:05 Initial Comments 23-year-old female presents for vaginal bleeding for 3 days, no abdominal pain, occ cramping. She denies wearing a pad, she only notices trace blood when wiping after urinating or BM. Nothing worse today. She reports being approximately 8 weeks gestation. Her last menstrual cycle was on September 22 of this year (Due date 06/29/19; 9 weeks gestation). She had a miscarriage in August 2018 and was treated here at that time. She is O- and given Rhogam. She did not follow-up with women's health after the last very scared and she has not been seen for appointment since this . She is taking a nasal multivitamin. She also complains of pain in her right cheek and dental pain. Timing/Duration: intermittent Severity/Quality: mild Radiation: none Allergies and Home Medications Allergies Coded Allergies: No Known Drug Allergies (Unverified , 04/01/16) Home Medications Amoxicillin 500 Mg Capsule, 500 MG PO TID Prescribed by: KRISTY POLLARD on 11/24/18 6545 Patient Home Medication List Home Medication List Reviewed: Yes Review of Systems Review of Systems Constitutional: no symptoms reported, see HPI EENTM: dental problems (right upper molar dental pain) Genitourinary: see HPI, hematuria : Yes LMP: Sep 22, 2008 All Other Systemes Reviewed Negative Unless Noted: Yes Past Jkmypvb-Emtlqk-Pwhnrs Hx Past Med/Social Hx: Reviewed Nursing Past Med/Soc Hx, Reviewed and Corrections made Patient Social History Alcohol Use: Denies Use Recreational Drug Use: Yes Drug of Choice: THC Smoking Status: Never a Smoker 2nd Hand Smoke Exposure: No Recent Foreign Travel: No Contact w/Someone Who Travel: No Recent Infectious Disease Expo: No Past Medical History Surgeries: Yes (Resection of benign neck mass) Appendectomy, Renal Respiratory: Yes Asthma Cardiac: No Neurological: No Last Menstrual Period: Sep 22, 2018 Hx : 4 Hx Para: 1 Hx Total # of Abortions (Sp): 3 Reproductive Disorders: Yes ( delivery late miscarriage with of twin infants) Sexually Transmitted Disease: No Genitourinary: Yes Kidney Stones Gastrointestinal: No Musculoskeletal: No Endocrine: No HEENT: No Cancer: No Psychosocial: No Integumentary: No Blood Disorders: No Physical Exam Vital Signs Vital Signs - First Documented 11/24/18 22:44 Temp 97.5 Pulse 74 Resp 16 B/P (MAP) 112/82 (92) Pulse Ox 100 O2 Delivery Room Air Capillary Refill : Less Than 3 Seconds Height, Weight, BMI Height: 5'3.00" Weight: 110lbs. 0.0oz. 49.842601mo; 17.14 BMI Method:Stated General Appearance: WD/WN, no apparent distress HEENT: PERRL/EOMI, normal ENT inspection, TMs normal, pharynx normal, other ( moderate to severe dental Rody right upper molar, aren't excoriation in the center of the tooth. Gingival irritation and tenderness. ) Neck: non-tender, full range of motion, supple, normal inspection, lymphadenopathy (R) Cardiovascular: normal peripheral pulses, regular rate, rhythm, no murmur Respiratory: chest non-tender, lungs clear, normal breath sounds Gastrointestinal: normal bowel sounds, non tender, soft Extremities: normal range of motion, non-tender, normal inspection, normal capillary refill Neurologic/Psychiatric: no motor/sensory deficits, alert, normal mood/affect, oriented x 3 Skin: normal color, warm/dry Progress/Results/Core Measures Suspected Sepsis Recent Fever Within 48 Hours: No Infection Criteria Present: None New/Unexplained Altered Menta: No Sepsis Screen: No Definite Risk SIRS Temperature:97.5 Pulse: 74 Respiratory Rate: 16 Laboratory Tests 11/24/18 22:53: White Blood Count 13.2H Blood Pressure 112 /82 Mean: 92 Laboratory Tests 11/24/18 22:53: Creatinine 0.68, Platelet Count 248, Total Bilirubin 0.8 Results/Orders Lab Results Laboratory Tests Test 11/24/18 22:53 11/24/18 23:11 Range/Units White Blood Count 13.2 H 4.3-11.0 10^3/uL Red Blood Count 4.32 L 4.35-5.85 10^6/uL Hemoglobin 12.4 11.5-16.0 G/DL Hematocrit 37 35-52 % Mean Corpuscular Volume 87 80-99 FL Mean Corpuscular Hemoglobin 29 25-34 PG Mean Corpuscular Hemoglobin Concent 33 32-36 G/DL Red Cell Distribution Width 12.7 10.0-14.5 % Platelet Count 248 130-400 10^3/uL Mean Platelet Volume 9.7 7.4-10.4 FL Neutrophils (%) (Auto) 72 42-75 % Lymphocytes (%) (Auto) 20 12-44 % Monocytes (%) (Auto) 8 0-12 % Eosinophils (%) (Auto) 1 0-10 % Basophils (%) (Auto) 0 0-10 % Neutrophils # (Auto) 9.4 H 1.8-7.8 X 10^3 Lymphocytes # (Auto) 2.7 1.0-4.0 X 10^3 Monocytes # (Auto) 1.0 0.0-1.0 X 10^3 Eosinophils # (Auto) 0.1 0.0-0.3 10^3/uL Basophils # (Auto) 0.0 0.0-0.1 10^3/uL Sodium Level 137 135-145 MMOL/L Potassium Level 3.3 L 3.6-5.0 MMOL/L Chloride Level 105 98-107 MMOL/L Carbon Dioxide Level 21 21-32 MMOL/L Anion Gap 11 5-14 MMOL/L Blood Urea Nitrogen 8 7-18 MG/DL Creatinine 0.68 0.60-1.30 MG/DL Estimat Glomerular Filtration Rate > 60 BUN/Creatinine Ratio 12 Glucose Level 97 70-105 MG/DL Calcium Level 9.5 8.5-10.1 MG/DL Corrected Calcium 8.5-10.1 MG/DL Total Bilirubin 0.8 0.1-1.0 MG/DL Aspartate Amino Transf (AST/SGOT) 15 5-34 U/L Alanine Aminotransferase (ALT/SGPT) 13 0-55 U/L Alkaline Phosphatase 71 40-136 U/L Total Protein 7.2 6.4-8.2 GM/DL Albumin 4.6 H 3.2-4.5 GM/DL Human Chorionic Gonadotropin, Quant 22005 H <5 MIU/ML Urine Color YELLOW Urine Clarity CLEAR Urine pH 6 5-9 Urine Specific [place] 1.020 1.016-1.022 Urine Protein 1+ H NEGATIVE Urine Glucose (UA) NEGATIVE NEGATIVE Urine Ketones 2+ H NEGATIVE Urine Nitrite NEGATIVE NEGATIVE Urine Bilirubin NEGATIVE NEGATIVE Urine Urobilinogen 4 H NORMAL MG/DL Urine Leukocyte Esterase NEGATIVE NEGATIVE Urine RBC (Auto) 2+ H NEGATIVE Urine RBC NONE /HPF Urine WBC NONE /HPF Urine Squamous Epithelial Cells 2-5 /HPF Urine Crystals PRESENT H /LPF Urine Amorphous Sediment FEW SMITA URATES H /LPF Urine Bacteria NEGATIVE /HPF Urine Casts NONE /LPF Urine Mucus NEGATIVE /LPF Urine Culture Indicated NO Urine Opiates Screen NEGATIVE NEGATIVE Urine Oxycodone Screen NEGATIVE NEGATIVE Urine Methadone Screen NEGATIVE NEGATIVE Urine Propoxyphene Screen NEGATIVE NEGATIVE Urine Barbiturates Screen NEGATIVE NEGATIVE Ur Tricyclic Antidepressants Screen NEGATIVE NEGATIVE Urine Phencyclidine Screen NEGATIVE NEGATIVE Urine Amphetamines Screen NEGATIVE NEGATIVE Urine Methamphetamines Screen NEGATIVE NEGATIVE Urine Benzodiazepines Screen NEGATIVE NEGATIVE Urine Cocaine Screen NEGATIVE NEGATIVE Urine Cannabinoids Screen POSITIVE H NEGATIVE My Orders Orders - KRISTY POLLARD Urine Bedside (11/24/18 22:25) Ua Culture If Indicated (11/24/18 22:25) Cbc With Automated Diff (11/24/18 22:32) Hcg,Quantitative (11/24/18 22:32) Drug Screen Stat (Urine) (11/24/18 23:09) Rx-Amoxicillin Capsule (Rx-Polymox Capsu (11/24/18 23:19) Comprehensive Metabolic Panel (11/24/18 23:31) Saline Lock/Iv-Start (11/24/18 23:31) Ns Iv 1000 Ml (Sodium Chloride 0.9%) (11/24/18 23:31) Rh Immune Globulin Rhophylac (11/25/18 00:00) Rhogam Administration (11/25/18 00:00) Vital Signs/I&O 11/24/18 11/25/18 11/25/18 22:44 00:42 00:58 Temp 97.5 97.4 97.4 Pulse 74 97 96 Resp 16 16 16 B/P (MAP) 112/82 (92) 127/89 124/77 (93) Pulse Ox 100 99 100 O2 Delivery Room Air Room Air Room Air Capillary Refill : Less Than 3 Seconds Blood Pressure Mean: 92 Progress Note : Time: 23:05 Progress Note Patient seen and evaluated, will obtain labs. Explained to patient that we do not have ultrasound services available. 2330 UA 2+ Ketones, will give 1 L NS IV. 2345 Reviewed lab results with patient. With her Quant HCG 18,289 and + HCG it is inconclusive whether she is experiencing miscarriage, without an US. Discussed with Dr. Boogie, since she is O-, still needs Rhogam. 0005 Discussed d/c plans with patient, she continues to deny abd pain or cramping, no vag d/c. Will give Rhogam and then plan d/c to home. To call her OB doctor tomorrow for follow up. She has appt scheduled for 11/28/18. Discharge instructions and return precautions reviewed. Departure Impression Primary Impression: Dental abscess Additional Impressions: Dental caries Threatened in early Disposition: HOME, SELF-CARE Condition: Improved Departure-Patient Inst. Decision time for Depature: 23:55 Referrals: [facility] (PCP/Family) Primary Care Physician Patient Instructions: Bleeding With (DC), Dental Pain, Threatened Miscarriage (DC), Tooth Decay, Adult (DC) Add. Discharge Instructions: Continue taking a vitamin daily. Take your antibiotic as prescribed. You may alternate between ibuprofen 600 mg and Tylenol 650 mg every 4 hours for pain, fever, cramping. Follow-up with the dentist in one week. Discontinue marijuana usage, it is harmful to you and pregnancies. All discharge instructions reviewed with patient and/or family. Voiced understanding. Scripts Amoxicillin (Amoxicillin) 500 Mg Capsule 500 MG PO TID, #21 CAP Prov: KRISTY POLLARD 11/24/18 Work/School Note: Work Release Form Date Seen in the Emergency Department: Nov 24, 2018 Return to Work: Nov 26, 2018 Restrictions: No Restrictions KRISTY POLLARD Nov 24, 2018 23:12
[2018-11-24 23:19] LABS: BILIRUBIN,URINE NEGATIVE (NEGATIVE); CLARITY,URINE CLEAR; COLOR,URINE YELLOW; GLUCOSE, URINE (UA) NEGATIVE (NEGATIVE); KETONES,URINE 2+ (NEGATIVE); LEUKOCYTE ESTERASE ,URINE NEGATIVE (NEGATIVE); NITRITE,URINE NEGATIVE (NEGATIVE); PH,URINE 6 (5-9); PROTEIN,URINE 1+ (NEGATIVE); UROBILINOGEN,URINE 4 MG/DL (NORMAL)
[2018-11-24] MEDS ORDERED: RX-AMOXICILLIN 500 MG CAP #3 PPK PO STA (23:19)
[2018-11-24] MEDS ORDERED: AMOX500C2 PO (23:22)
[2018-11-24 23:28] LABS: BACTERIA,URINE NEGATIVE /HPF
[2018-11-24 23:29] LABS: AMORPHOUS SEDIMENT,UR FEW AMOR URATES /LPF
[2018-11-24] MEDS ORDERED: NS IV 1000 ML 1,000 ML IV SCH (23:31)
[2018-11-24 23:38] LABS: AMPHETAMINE SCREEN, URINE NEGATIVE (NEGATIVE); BARBITURATE SCREEN URINE NEGATIVE (NEGATIVE); BENZODIAZEPINES SCREEN URINE NEGATIVE (NEGATIVE); CANNABINOID SCREEN, URINE POSITIVE (NEGATIVE); COCAINE SCREEN URINE NEGATIVE (NEGATIVE); METHADONE STAT NEGATIVE (NEGATIVE); METHAMPHETAMINE SCREEN URINE S NEGATIVE (NEGATIVE); OPIATE SCREEN URINE NEGATIVE (NEGATIVE); OXYCODONE STAT NEGATIVE (NEGATIVE); PROPOXYPHENE STAT NEGATIVE (NEGATIVE); TRICYCLIC ANTIDEPRESSANTS SCRE NEGATIVE (NEGATIVE)
[2018-11-24 23:51] LABS: ALANINE AMINOTRANSFERASE 13 U/L (0-55); ALBUMIN 4.6 GM/DL (3.2-4.5); ALKALINE PHOSPHATASE 71 U/L (40-136); BILIRUBIN,TOTAL 0.8 MG/DL (0.1-1.0); BUN/CREATININE RATIO 12; CALCIUM 9.5 MG/DL (8.5-10.1); CARBON DIOXIDE 21 MMOL/L (21-32); CHLORIDE 105 MMOL/L (98-107); CREATININE SERUM 0.68 MG/DL (0.60-1.30); GFR ESTIMATED > 60; GLUCOSE 97 MG/DL (70-105); POTASSIUM 3.3 MMOL/L (3.6-5.0); SODIUM 137 MMOL/L (135-145); TOTAL PROTEIN 7.2 GM/DL (6.4-8.2)
[2018-11-25 00:42] VITALS: BP 127/89
[2018-11-25 00:58] VITALS: BP 124/77
== END 2018-11-25 00:58 | disposition home or self-care (01) ==
LOC: EDUNIT# 22:13 → ER 22:15
DX: O20.0 Threatened abortion (principal); O99.611 Diseases of the digestive system complicating pregnancy, first trimester; K02.9 Dental caries, unspecified; K04.7 Periapical abscess without sinus; O99.321 Drug use complicating pregnancy, first trimester; F12.10 Cannabis abuse, uncomplicated; O99.511 Diseases of the respiratory system complicating pregnancy, first trimester; J45.909 Unspecified asthma, uncomplicated; Z90.49 Acquired absence of other specified parts of digestive tract; Z3A.08 8 weeks gestation of pregnancy; Z87.442 Personal history of urinary calculi; Z98.890 Other specified postprocedural states
CPT/HCPCS: 36415; 80053; 80306; 81000; 84702; 84703; 85025

== ENCOUNTER → 2019-04-24 | Emergency (ER) | payer BC, MEDICAID ==
[~2019-04-24] VITALS: Ht 162.6 cm; Wt 49.9 kg
[~2019-04-24] MED LIST changes: +AMOX500C2 PO; +DOXY1TAB3 PO; +LACTATED RINGERS 1,000 ML IV SCH; +ONDA4TAB11 PO; +ONDANSETRON 4 MG (ZOFRAN) ORAL DISSOLVE TAB PO ONE; +ONDANSETRON 4 MG/2 ML (SDV) Z0FRAN IVP ONE; +ONDANSETRON 4 MG/2 ML (SDV) Z0FRAN ONE; +PROMETHAZINE INJ 25 MG/ML (PHENERGAN) AMP IVP ONE; +diphenhydrAMINE 50 MG/ML INJ (BENADRYL) IVP ONE
--- NOTE | 2019-04-24 11:19 | ED GI ---
General Chief Complaint: Abdominal/GI Problems Stated Complaint: N/V Nursing Triage Note: PT STATES NV SINCE LAST WEDNESDAY, UNABLE TO KEEP ANYTHING DOWN. Sepsis Screen: No Definite Risk Source of Information: Patient Exam Limitations: No Limitations History of Present Illness Date Seen by Provider: Apr 24, 2019 Time Seen by Provider: 11:18 Initial Comments To ER with reports of nausea and vomiting since Wednesday, 4 days ago. Unable to keep anything down. Denies abdominal pain. Denies fevers or chills or diarrhea. Thinks she might be , last menstrual period was 03/21/19. She's had 2 miscarriages already this year, and a third one last year. She denies any abdominal pain or vaginal bleeding. Timing/Duration: 3-4 Days Severity/Quality: Moderate Location: Generalized Abdomen Radiation: No Radiation Activities at Onset: None Associated Symptoms: Denies Symptoms Allergies and Home Medications Allergies Coded Allergies: aspirin (Verified Allergy, Intermediate, 04/24/19) Home Medications Amoxicillin 500 Mg Capsule, 500 MG PO TID Prescribed by: KRISTY POLLARD on 11/24/18 2322 Ondansetron 4 Mg Tab.rapdis, 4 MG PO Q4H PRN for NAUSEA/VOMITING Prescribed by: BERE REYNAGA on 04/24/19 1256 Patient Home Medication List Home Medication List Reviewed: Yes Review of Systems Review of Systems Constitutional: see HPI EENTM: No Symptoms Reported Respiratory: No Symptoms Reported Cardiovascular: No Symptoms Reported Gastrointestinal: See HPI; Denies Abdominal Pain, Denies Constipated, Denies Diarrhea; Nausea, Vomiting Genitourinary: No Symptoms Reported Musculoskeletal: no symptoms reported Skin: no symptoms reported Psychiatric/Neurological: No Symptoms Reported Endocrine: No Symptoms Reported Hematologic/Lymphatic: No Symptoms Reported Past Rneyyit-Tlxoid-Gybtuy Hx Patient Social History Drug of Choice: THC 2nd Hand Smoke Exposure: No Recent Foreign Travel: No Contact w/Someone Who Travel: No Recent Infectious Disease Expo: No Past Medical History Surgeries: Yes (Resection of benign neck mass) Appendectomy, Renal Respiratory: Yes Asthma Cardiac: No Neurological: No : No (NOT REALLY SURE) Last Menstrual Period: Mar 21, 2019 Reproductive Disorders: Yes ( delivery late miscarriage with of twin infants) Sexually Transmitted Disease: No Genitourinary: Yes Kidney Stones Gastrointestinal: No Musculoskeletal: No Endocrine: No HEENT: No Cancer: No Psychosocial: No Integumentary: No Blood Disorders: No Physical Exam Vital Signs Vital Signs - First Documented 04/24/19 10:55 Temp 97.2 Pulse 90 Resp 20 B/P (MAP) 127/88 (101) Pulse Ox 100 O2 Delivery Room Air Capillary Refill : Less Than 3 Seconds Height/Weight/BMI Height: 5'4.00" Weight: 110lbs. 0.0oz. [id number]; 17.14 BMI Method:Stated General Appearance: WD/WN, no apparent distress HEENT: PERRL/EOMI, normal ENT inspection Respiratory: no respiratory distress, no accessory muscle use Gastrointestinal: normal bowel sounds, non tender, soft; No distended, No guarding, No rebound, No tenderness Extremities: normal range of motion, non-tender Neurologic/Psychiatric: alert, normal mood/affect, oriented x 3 Skin: normal color, warm/dry Progress/Results/Core Measures Results/Orders Lab Results Laboratory Tests Test 04/24/19 10:55 04/24/19 11:00 Range/Units Urine Color YELLOW Urine Clarity SLIGHTLY CLOUDY Urine pH 7 5-9 Urine Specific [place] 1.015 L 1.016-1.022 Urine Protein 1+ H NEGATIVE Urine Glucose (UA) NEGATIVE NEGATIVE Urine Ketones 4+ H NEGATIVE Urine Nitrite NEGATIVE NEGATIVE Urine Bilirubin NEGATIVE NEGATIVE Urine Urobilinogen NORMAL NORMAL MG/DL Urine Leukocyte Esterase NEGATIVE NEGATIVE Urine RBC (Auto) NEGATIVE NEGATIVE Urine RBC NONE /HPF Urine WBC NONE /HPF Urine Squamous Epithelial Cells 10-25 H /HPF Urine Crystals NONE /LPF Urine Bacteria NEGATIVE /HPF Urine Casts NONE /LPF Urine Mucus MODERATE H /LPF Urine Culture Indicated NO Urine Opiates Screen NEGATIVE NEGATIVE Urine Oxycodone Screen NEGATIVE NEGATIVE Urine Methadone Screen NEGATIVE NEGATIVE Urine Propoxyphene Screen NEGATIVE NEGATIVE Urine Barbiturates Screen NEGATIVE NEGATIVE Ur Tricyclic Antidepressants Screen NEGATIVE NEGATIVE Urine Phencyclidine Screen NEGATIVE NEGATIVE Urine Amphetamines Screen NEGATIVE NEGATIVE Urine Methamphetamines Screen NEGATIVE NEGATIVE Urine Benzodiazepines Screen NEGATIVE NEGATIVE Urine Cocaine Screen NEGATIVE NEGATIVE Urine Cannabinoids Screen POSITIVE H NEGATIVE White Blood Count 9.7 4.3-11.0 10^3/uL Red Blood Count 5.17 4.35-5.85 10^6/uL Hemoglobin 15.1 11.5-16.0 G/DL Hematocrit 45 35-52 % Mean Corpuscular Volume 86 80-99 FL Mean Corpuscular Hemoglobin 29 25-34 PG Mean Corpuscular Hemoglobin Concent 34 32-36 G/DL Red Cell Distribution Width 12.6 10.0-14.5 % Platelet Count 272 130-400 10^3/uL Mean Platelet Volume 9.9 7.4-10.4 FL Neutrophils (%) (Auto) 71 42-75 % Lymphocytes (%) (Auto) 24 12-44 % Monocytes (%) (Auto) 5 0-12 % Eosinophils (%) (Auto) 0 0-10 % Basophils (%) (Auto) 0 0-10 % Neutrophils # (Auto) 6.8 1.8-7.8 X 10^3 Lymphocytes # (Auto) 2.3 1.0-4.0 X 10^3 Monocytes # (Auto) 0.5 0.0-1.0 X 10^3 Eosinophils # (Auto) 0.0 0.0-0.3 10^3/uL Basophils # (Auto) 0.0 0.0-0.1 10^3/uL Sodium Level 135 135-145 MMOL/L Potassium Level 3.6 3.6-5.0 MMOL/L Chloride Level 102 98-107 MMOL/L Carbon Dioxide Level 20 L 21-32 MMOL/L Anion Gap 13 5-14 MMOL/L Blood Urea Nitrogen 8 7-18 MG/DL Creatinine 0.76 0.60-1.30 MG/DL Estimat Glomerular Filtration Rate > 60 BUN/Creatinine Ratio 11 Glucose Level 90 70-105 MG/DL Calcium Level 10.3 H 8.5-10.1 MG/DL Corrected Calcium 8.5-10.1 MG/DL Total Bilirubin 0.9 0.1-1.0 MG/DL Aspartate Amino Transf (AST/SGOT) 22 5-34 U/L Alanine Aminotransferase (ALT/SGPT) 22 0-55 U/L Alkaline Phosphatase 76 40-136 U/L Total Protein 9.0 H 6.4-8.2 GM/DL Albumin 5.0 H 3.2-4.5 GM/DL Human Chorionic Gonadotropin, Quant [id number] H <5 MIU/ML My Orders Orders - BERE REYNAGA [employer]AIL EVENT COORDINATOR Cbc With Automated Diff (04/24/19 11:10) Comprehensive Metabolic Panel (04/24/19 11:10) Ua Culture If Indicated (04/24/19 11:10) Drug Screen Stat (Urine) (04/24/19 11:10) Hcg,Quantitative (04/24/19 11:10) Lactated Ringers (Lr 1000 Ml Iv Solution (04/24/19 11:15) Ondansetron Oral Dissolve Tab (Zofran (04/24/19 11:15) Diphenhydramine Injection (Benadryl Inje (04/24/19 11:15) Ondansetron Injection (Zofran Injectio (04/24/19 11:30) Ondansetron Injection (Zofran Injectio (04/24/19 11:12) Urine Bedside (04/24/19 12:13) Medications Given in ED Current Medications Medications Dose Ordered Sig/Phill Route Start Time Stop Time Status Last Admin Dose Admin Diphenhydramine HCl 25 mg ONCE ONCE IVP 04/24/19 11:15 04/24/19 11:16 DC 04/24/19 11:22 25 MG Ondansetron HCl 8 mg ONCE ONCE IVP 04/24/19 11:30 04/24/19 11:31 DC 04/24/19 11:23 8 MG Vital Signs/I&O 04/24/19 10:55 Temp 97.2 Pulse 90 Resp 20 B/P (MAP) 127/88 (101) Pulse Ox 100 O2 Delivery Room Air Blood Pressure Mean: 101 Departure Communication (Admissions) Family Conversation Feeling much better at this time. Impression Primary Impression: Nausea and vomiting during Disposition: 01 HOME, SELF-CARE Condition: Improved Departure-Patient Inst. Decision time for Depature: 12:55 Referrals: [facility] (PCP[facility]Family) Primary Care Physician Patient Instructions: Nausea and Vomiting of (DC) Add. Discharge Instructions: 1. Nausea medication as directed 2. Follow-up with your doctor next week 3. Return to ER for any concerns. All discharge instructions reviewed with patient and/or family. Voiced understanding. Scripts Doxylamine/Pyridoxine HCl (Stephan Domínguez 10-10 mg Tablet) 1 Each Tablet. 1 EACH PO BID, #30 TAB Prov: BERE REYNAGA APRN 04/24/19 Ondansetron (Ondansetron Odt) 4 Mg Tab.rapdis 4 MG PO Q4H PRN for NAUSEA/VOMITING, #14 TAB Prov: BERE REYNAGA APRN 04/24/19 Work/School Note: Work Release Form Date Seen in the Emergency Department: Apr 24, 2019 Return to Work: Apr 25, 2019 BERE REYNAGA APRN Apr 24, 2019 11:19
[2019-04-24 11:22] LABS: BASOPHILS % (AUTO) 0 % (0-10); EOSINOPHILS % (AUTO) 0 % (0-10); HEMATOCRIT 45 % (35-52); HEMOGLOBIN 15.1 G/DL (11.5-16.0); LYMPHOCYTES # (AUTO) 2.3 X 10^3 (1.0-4.0); LYMPHOCYTES % (AUTO) 24 % (12-44); MEAN CORPUSCULAR HEMOGLOBIN 29 PG (25-34); MEAN CORPUSCULAR HGB CONC 34 G/DL (32-36); MEAN CORPUSCULAR VOLUME 86 FL (80-99); MEAN PLATELET VOLUME 9.9 FL (7.4-10.4); MONOCYTES # (AUTO) 0.5 X 10^3 (0.0-1.0); MONOCYTES % (AUTO) 5 % (0-12); NEUTROPHILS # (AUTO) 6.8 X 10^3 (1.8-7.8); NEUTROPHILS % (AUTO) 71 % (42-75); PLATELET COUNT 272 10^3/uL (130-400); RED CELL DISTRIBUTION WIDTH 12.6 % (10.0-14.5); WHITE BLOOD COUNT 9.7 10^3/uL (4.3-11.0)
[2019-04-24 11:55] LABS: BILIRUBIN,URINE NEGATIVE (NEGATIVE); CLARITY,URINE SLIGHTLY CLOUDY; COLOR,URINE YELLOW; GLUCOSE, URINE (UA) NEGATIVE (NEGATIVE); KETONES,URINE 4+ (NEGATIVE); LEUKOCYTE ESTERASE ,URINE NEGATIVE (NEGATIVE); NITRITE,URINE NEGATIVE (NEGATIVE); PH,URINE 7 (5-9); PROTEIN,URINE 1+ (NEGATIVE); UROBILINOGEN,URINE NORMAL (NORMAL)
[2019-04-24 12:04] LABS: ALANINE AMINOTRANSFERASE 22 U/L (0-55); ALKALINE PHOSPHATASE 76 U/L (40-136); BILIRUBIN,TOTAL 0.9 MG/DL (0.1-1.0); BUN/CREATININE RATIO 11; CALCIUM 10.3 MG/DL (8.5-10.1); CARBON DIOXIDE 20 MMOL/L (21-32); CHLORIDE 102 MMOL/L (98-107); CREATININE SERUM 0.76 MG/DL (0.60-1.30); GFR ESTIMATED > 60; GLUCOSE 90 MG/DL (70-105); POTASSIUM 3.6 MMOL/L (3.6-5.0); SODIUM 135 MMOL/L (135-145)
[2019-04-24 12:06] LABS: BACTERIA,URINE NEGATIVE /HPF
[2019-04-24 12:07] LABS: AMPHETAMINE SCREEN, URINE NEGATIVE (NEGATIVE); BARBITURATE SCREEN URINE NEGATIVE (NEGATIVE); BENZODIAZEPINES SCREEN URINE NEGATIVE (NEGATIVE); CANNABINOID SCREEN, URINE POSITIVE (NEGATIVE); COCAINE SCREEN URINE NEGATIVE (NEGATIVE); METHADONE STAT NEGATIVE (NEGATIVE); METHAMPHETAMINE SCREEN URINE S NEGATIVE (NEGATIVE); OPIATE SCREEN URINE NEGATIVE (NEGATIVE); OXYCODONE STAT NEGATIVE (NEGATIVE); PROPOXYPHENE STAT NEGATIVE (NEGATIVE); TRICYCLIC ANTIDEPRESSANTS SCRE NEGATIVE (NEGATIVE)
[2019-04-24 14:10] VITALS: BP 108/70
== END ==
LOC: EDUNIT# 10:44 → ER 10:45
DX: O21.9 Vomiting of pregnancy, unspecified (principal); O99.519 Diseases of the respiratory system complicating pregnancy, unspecified trimester; J45.909 Unspecified asthma, uncomplicated; Z3A.00 Weeks of gestation of pregnancy not specified; Z87.442 Personal history of urinary calculi; Z88.6 Allergy status to analgesic agent; Z90.49 Acquired absence of other specified parts of digestive tract; Z87.59 Personal history of other complications of pregnancy, childbirth and the puerperium
CPT/HCPCS: 36415; 80053; 80306; 81000; 84702; 84703; 85025

== ENCOUNTER 2019-06-06 09:58 | Emergency (ER) | payer BC, MEDICAID ==
[~2019-06-06] VITALS: Ht 162.5 cm; Wt 49.5 kg
[~2019-06-06 09:58] MED LIST changes: -LACTATED RINGERS 1,000 ML IV SCH; -ONDANSETRON 4 MG (ZOFRAN) ORAL DISSOLVE TAB PO ONE; -ONDANSETRON 4 MG/2 ML (SDV) Z0FRAN IVP ONE; -ONDANSETRON 4 MG/2 ML (SDV) Z0FRAN ONE; -PROMETHAZINE INJ 25 MG/ML (PHENERGAN) AMP IVP ONE; -diphenhydrAMINE 50 MG/ML INJ (BENADRYL) IVP ONE
--- NOTE | 2019-06-06 10:50 | NUR ---
COOL RAG AND MCNEIL GIVEN TO PT FOR HER NAUSEA.
--- NOTE | 2019-06-06 10:55 | NUR ---
DR NOTIFIED PT WAS NAUSEATED.
--- NOTE | 2019-06-06 11:00 | NUR ---
REPORT GIVEN TO ARELY MARQUEZ.
[2019-06-06] MEDS ORDERED: PROMETHAZINE INJ 25 MG/ML (PHENERGAN) AMP IVP ONE (11:15)
[2019-06-06] MEDS ORDERED: NS IV 1000 ML 1,000 ML IV SCH (11:15)
--- NOTE | 2019-06-06 11:33 | ED Abdominal Pain ---
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 STATES SHE IS OUT OF HER PROMETHAZINE AND WAS TOLD TO COME TO THE ER BY DR GUTIERREZ. Sepsis Screen: No Definite Risk Source of Information: Patient Exam Limitations: No Limitations History of Present Illness Date Seen by Provider: Jun 06, 2019 Time Seen by Provider: 11:10 Initial Comments 23-year-old female who presents to the emergency room with complaints of nausea and vomiting that started 2 days ago. She is [address] Gutierrez. She has had 3 miscarriages in the past and Dr. Gutierrez has been this high risk. She reports that she is just experiencing morning sickness and has ran out of her promethazine with Dr. Winn would not refill the medication and told her to come to the ER. Denies pain at this time. Timing/Duration: 1-2 Days Associated Symptoms: Nausea/Vomiting Allergies and Home Medications Allergies Coded Allergies: aspirin (Verified Allergy, Intermediate, 04/24/19) Home Medications Amoxicillin 500 Mg Capsule, 500 MG PO TID Prescribed by: KRISTY POLLARD on 11/24/18 2322 Doxylamine/Pyridoxine HCl 1 Each Tablet.dr, 1 EACH PO BID Prescribed by: BERE REYNAGA on 04/24/19 1258 Ondansetron 4 Mg Tab.rapdis, 4 MG PO Q4H PRN for NAUSEA/VOMITING Prescribed by: BERE REYNAGA on 04/24/19 1256 Promethazine HCl 25 Mg Tablet, 25 MG PO Q8H PRN for NAUSEA/VOMITING Prescribed by: ASHOK REINA on 06/06/19 1241 Promethazine HCl 25 Mg Tablet, 25 MG PO Q8H PRN for NAUSEA/VOMITING Prescribed by: ASHOK REINA on 06/06/19 1247 Patient Home Medication List Home Medication List Reviewed: Yes Review of Systems Review of Systems Constitutional: see HPI; No chills, No fever Gastrointestinal: See HPI, Nausea, Vomiting All Other Systems Reviewed Negative Unless Noted: Yes Past Dgoouwa-Gbzeio-Kyicbb Hx Past Med/Social Hx: Reviewed Nursing Past Med/Soc Hx Patient Social History Alcohol Use: Denies Use Alcohol Beverage of Choice: Beer Recreational Drug Use: Yes Drug of Choice: POT Smoking Status: Never a Smoker 2nd Hand Smoke Exposure: No Recent Foreign Travel: No Contact w/Someone Who Travel: No Recent Infectious Disease Expo: No Recent Hopitalizations: No Seasonal Allergies Seasonal Allergies: No Past Medical History Surgeries: Yes (Resection of benign neck mass) Appendectomy, Renal Respiratory: Yes Asthma Cardiac: No Neurological: No : Yes Expected Date of Delivery: Dec 22, 2019 Reproductive Disorders: Yes ( delivery late miscarriage with of twin infants) Sexually Transmitted Disease: No Genitourinary: Yes Kidney Stones Gastrointestinal: No Musculoskeletal: No Endocrine: No HEENT: No Cancer: No Psychosocial: No Integumentary: No Blood Disorders: No Family Medical History Reviewed Nursing Family Hx Physical Exam Vital Signs Vital Signs - First Documented 06/06/19 10:20 Temp 36.8 Pulse 75 Resp 16 B/P (MAP) 124/81 (95) Pulse Ox 99 O2 Delivery Room Air Capillary Refill : Less Than 3 Seconds Height/Weight/BMI Height: 5'4.00" Weight: 110lbs. 0.0oz. 49.982014ex; 18.00 BMI Method:Stated General Appearance: WD/WN, no apparent distress Respiratory: chest non-tender, lungs clear, normal breath sounds, no respiratory distress, no accessory muscle use Cardiovascular: normal peripheral pulses, regular rate, rhythm, no edema, no gallop, no JVD, no murmur Gastrointestinal: normal bowel sounds, non tender, soft, no organomegaly, no pulsatile mass Extremities: normal capillary refill Neurologic/Psychiatric: alert, normal mood/affect, oriented x 3 Skin: normal color, warm/dry Progress/Results/Core Measures Results/Orders Lab Results Laboratory Tests Test 06/06/19 11:14 06/06/19 11:25 Range/Units Urine Color YELLOW Urine Clarity CLEAR Urine pH 6 5-9 Urine Specific [place] 1.015 L 1.016-1.022 Urine Protein NEGATIVE NEGATIVE Urine Glucose (UA) NEGATIVE NEGATIVE Urine Ketones 4+ H NEGATIVE Urine Nitrite NEGATIVE NEGATIVE Urine Bilirubin NEGATIVE NEGATIVE Urine Urobilinogen NORMAL NORMAL MG/DL Urine Leukocyte Esterase NEGATIVE NEGATIVE Urine RBC (Auto) NEGATIVE NEGATIVE Urine RBC NONE /HPF Urine WBC RARE /HPF Urine Squamous Epithelial Cells 0-2 /HPF Urine Crystals NONE /LPF Urine Bacteria NEGATIVE /HPF Urine Casts NONE /LPF Urine Mucus NEGATIVE /LPF Urine Culture Indicated NO White Blood Count 8.8 4.3-11.0 10^3/uL Red Blood Count 4.23 L 4.35-5.85 10^6/uL Hemoglobin 12.5 11.5-16.0 G/DL Hematocrit 37 35-52 % Mean Corpuscular Volume 88 80-99 FL Mean Corpuscular Hemoglobin 30 25-34 PG Mean Corpuscular Hemoglobin Concent 34 32-36 G/DL Red Cell Distribution Width 12.7 10.0-14.5 % Platelet Count 208 130-400 10^3/uL Mean Platelet Volume 9.6 7.4-10.4 FL Neutrophils (%) (Auto) 75 42-75 % Lymphocytes (%) (Auto) 19 12-44 % Monocytes (%) (Auto) 6 0-12 % Eosinophils (%) (Auto) 0 0-10 % Basophils (%) (Auto) 0 0-10 % Neutrophils # (Auto) 6.6 1.8-7.8 X 10^3 Lymphocytes # (Auto) 1.7 1.0-4.0 X 10^3 Monocytes # (Auto) 0.6 0.0-1.0 X 10^3 Eosinophils # (Auto) 0.0 0.0-0.3 10^3/uL Basophils # (Auto) 0.0 0.0-0.1 10^3/uL Sodium Level 132 L 135-145 MMOL/L Potassium Level 3.4 L 3.6-5.0 MMOL/L Chloride Level 102 98-107 MMOL/L Carbon Dioxide Level 22 21-32 MMOL/L Anion Gap 8 5-14 MMOL/L Blood Urea Nitrogen 8 7-18 MG/DL Creatinine 0.60 0.60-1.30 MG/DL Estimat Glomerular Filtration Rate > 60 BUN/Creatinine Ratio 13 Glucose Level 82 70-105 MG/DL Calcium Level 9.9 8.5-10.1 MG/DL Corrected Calcium 9.7 8.5-10.1 MG/DL Total Bilirubin 0.9 0.1-1.0 MG/DL Aspartate Amino Transf (AST/SGOT) 18 5-34 U/L Alanine Aminotransferase (ALT/SGPT) 15 0-55 U/L Alkaline Phosphatase 54 40-136 U/L Total Protein 7.3 6.4-8.2 GM/DL Albumin 4.2 3.2-4.5 GM/DL Lipase 9 8-78 U/L My Orders Orders - BERNOT,ASHOK Comprehensive Metabolic Panel (06/06/19 11:14) Lipase (06/06/19 11:14) Ua Culture If Indicated (06/06/19 11:14) Ed Iv/Invasive Line Start (06/06/19 11:14) Cbc With Automated Diff (06/06/19 11:14) Ns Iv 1000 Ml (Sodium Chloride 0.9%) (06/06/19 11:15) Promethazine Injection (Phenergan Injec (06/06/19 11:15) Medications Given in ED Vital Signs/I&O 06/06/19 06/06/19 10:20 12:42 Temp 36.8 36.8 Pulse 75 83 Resp 16 16 B/P (MAP) 124/81 (95) 116/60 (95) Pulse Ox 99 98 O2 Delivery Room Air Room Air Blood Pressure Mean: 95 Departure Impression Primary Impression: Morning sickness Additional Impression: with one fetus in first trimester Disposition: 01 HOME, SELF-CARE Condition: Stable/Unchanged Departure-Patient Inst. Decision time for Depature: 12:40 Referrals: [facility] (PCP/Family) Primary Care Physician Patient Instructions: Activity During Add. Discharge Instructions: Take medications as prescribed. Call tomorrow morning to schedule an appointment with Dr. Gutierrez for further evaluation. Return back to the emergency room for worsening symptoms or concerns as needed. All discharge instructions reviewed with patient and/or family. Voiced understanding. Scripts Promethazine HCl (Promethazine Tablet) 25 Mg Tablet 25 MG PO Q8H PRN for NAUSEA/VOMITING, #14 TAB 0 Refills Prov: ASHOK REINA 06/06/19 Promethazine HCl (Promethazine Tablet) 25 Mg Tablet 25 MG PO Q8H PRN for NAUSEA/VOMITING, #14 TAB 0 Refills Prov: ASHOK REINA 06/06/19 ASHOK REINA Jun 06, 2019 11:33
[2019-06-06 11:38] LABS: BASOPHILS % (AUTO) 0 % (0-10); EOSINOPHILS % (AUTO) 0 % (0-10); HEMATOCRIT 37 % (35-52); HEMOGLOBIN 12.5 G/DL (11.5-16.0); LYMPHOCYTES # (AUTO) 1.7 X 10^3 (1.0-4.0); LYMPHOCYTES % (AUTO) 19 % (12-44); MEAN CORPUSCULAR HEMOGLOBIN 30 PG (25-34); MEAN CORPUSCULAR HGB CONC 34 G/DL (32-36); MEAN CORPUSCULAR VOLUME 88 FL (80-99); MEAN PLATELET VOLUME 9.6 FL (7.4-10.4); MONOCYTES # (AUTO) 0.6 X 10^3 (0.0-1.0); MONOCYTES % (AUTO) 6 % (0-12); NEUTROPHILS # (AUTO) 6.6 X 10^3 (1.8-7.8); NEUTROPHILS % (AUTO) 75 % (42-75); PLATELET COUNT 208 10^3/uL (130-400); RED CELL DISTRIBUTION WIDTH 12.7 % (10.0-14.5); WHITE BLOOD COUNT 8.8 10^3/uL (4.3-11.0)
--- NOTE | 2019-06-06 12:01 | NUR ---
pt reports being unable to urinate at this time.
[2019-06-06 12:02] LABS: ALANINE AMINOTRANSFERASE 15 U/L (0-55); ALBUMIN 4.2 GM/DL (3.2-4.5); ALKALINE PHOSPHATASE 54 U/L (40-136); BILIRUBIN,TOTAL 0.9 MG/DL (0.1-1.0); BUN/CREATININE RATIO 13; CALCIUM 9.9 MG/DL (8.5-10.1); CARBON DIOXIDE 22 MMOL/L (21-32); CHLORIDE 102 MMOL/L (98-107); GFR ESTIMATED > 60; GLUCOSE 82 MG/DL (70-105); LIPASE 9 U/L (8-78); POTASSIUM 3.4 MMOL/L (3.6-5.0); SODIUM 132 MMOL/L (135-145); TOTAL PROTEIN 7.3 GM/DL (6.4-8.2)
[2019-06-06 12:34] LABS: BILIRUBIN,URINE NEGATIVE (NEGATIVE); GLUCOSE, URINE (UA) NEGATIVE (NEGATIVE); KETONES,URINE 4+ (NEGATIVE); LEUKOCYTE ESTERASE ,URINE NEGATIVE (NEGATIVE); NITRITE,URINE NEGATIVE (NEGATIVE); PH,URINE 6 (5-9); PROTEIN,URINE NEGATIVE (NEGATIVE); UROBILINOGEN,URINE NORMAL (NORMAL)
[2019-06-06 12:36] LABS: BACTERIA,URINE NEGATIVE /HPF; CLARITY,URINE CLEAR; COLOR,URINE YELLOW; SQUAMOUS EPITHELIAL CELL,UR 0-2 /HPF; WBC,URINE RARE /HPF
[2019-06-06] MEDS ORDERED: PROM25TA14 PO ×2 (12:41→12:47)
[2019-06-06 12:42] VITALS: BP 116/60
== END 2019-06-06 12:48 | disposition home or self-care (01) ==
LOC: EDUNIT# 09:58 → ER 10:00
DX: O21.0 Mild hyperemesis gravidarum (principal); O99.511 Diseases of the respiratory system complicating pregnancy, first trimester; J45.909 Unspecified asthma, uncomplicated; Z3A.11 11 weeks gestation of pregnancy; Z79.82 Long term (current) use of aspirin; Z90.49 Acquired absence of other specified parts of digestive tract
CPT/HCPCS: 36415; 80053; 81000; 83690; 85025

== ENCOUNTER → 2019-08-04 | Outpatient (CLI) | payer BC, MEDICAID ==
[~2019-08-04] MED LIST changes: +PROM25TA14 PO
--- NOTE | 2019-08-04 15:01 | Diagnostic Imaging Report ---
INDICATION: Anatomy scan. TECHNIQUE: Multiple real-time grayscale images were obtained over the gravid uterus. COMPARISON: None FINDINGS: There is a single live fetus in a cephalic presentation. heart rate was recorded at 156 BPM. Placenta is fundal. Amniotic fluid volume is normal. Cervical length is 3.1 cm. survey demonstrates kidneys, bladder and stomach to be unremarkable. The brain is unremarkable. There is a four-chamber heart. There is a three-vessel cord with normal insertion. The spine is unremarkable. Maternal adnexa were not evaluated. Biometrical measurements are as follows: Biparietal 5.08 cm, age 21 weeks 3 days. Head circumference 18.80 cm, age 21 weeks 1 days. Abdominal circumference 16.12 cm, age 21 weeks 2 days. Femur length 3.55 cm, age 21 weeks 2 days. Sonographic estimate age: 21 weeks 2 days. Sonographic estimated date of delivery: 12/13/2019. Estimated Weight: 408 gm (+/- 60 gm). LMP percentile: 96%. heart rate: 156 beats per minute. number: 1 of 1. IMPRESSION: Single live IUP 21 weeks 2 days gestational age. The estimated date of confinement sonographically is 12/13/2019. Dictated by: Dictated on workstation # [id number]
== END ==
LOC: RAD 12:43
PROVIDERS: ATTEND Obstetrics & Gynecology
DX: Z34.92 Encounter for supervision of normal pregnancy, unspecified, second trimester (principal); Z3A.21 21 weeks gestation of pregnancy
CPT/HCPCS: 76805